=== PATIENT | male | born 1945 | race Asian ===

== ENCOUNTER 2019-09-24 18:03 | Emergency (ER) | payer BC ==
[~2019-09-24] VITALS: Ht 165.1 cm; Wt 70.8 kg
--- NOTE | 2019-09-24 18:12 | NUR ---
CAME IN FOR GENERALIZED WEAKNESS, LOST SENSE OF TASTE AND SMELL X 1 1/2 WEEK, TO ER BED 8, HOOKED TO MONITOR, CHANGED TO HOSP GOWN, WARM BLANKET PROVIDED, PATIENT AAO x 4, AWAITING MD DE DIOS.
[2019-09-24] MEDS ORDERED: Magnesium 1GM/D5W 100ML PREMIX 200 ML IV ONE ×2 (18:29→18:42)
[2019-09-24] MEDS ORDERED: predniSONE 20 MG TABLET PO ONE (18:30)
[2019-09-24] MEDS ORDERED: IPRATROPIUM NEB FS 0.5 MG/2.5 ML AMPUL.NEB NEB ONE (18:30)
[2019-09-24] MEDS ORDERED: ALBUTEROL FS 2.5 MG/3 ML VIAL.NEB NEB ONE (18:30)
[2019-09-24] MEDS ORDERED: predniSONE 20 MG TABLET ONE (18:44)
[2019-09-24 18:50] LABS: BASOPHILS % (AUTO) 0.4 % (0.0-2.0); EOSINOPHILS % (AUTO) 3.7 % (0.0-6.0); HEMATOCRIT 34 % (39-51); HEMOGLOBIN 11.6 g/dL (13.5-17.5); LYMPHOCYTES # (AUTO) 1.5 /CMM (0.8-4.8); LYMPHOCYTES % (AUTO) 26.9 % (20.0-44.0); MEAN CORPUSCULAR HGB CONC 34 g/dl (31.0-36.0); MEAN CORPUSCULAR VOLUME 97 fL (80-96); MONOCYTES # (AUTO) 0.6 /CMM (0.1-1.30); MONOCYTES % (AUTO) 10.2 % (2.0-12.0); NEUTROPHILS # (AUTO) 3.4 /CMM (1.8-8.9); NEUTROPHILS % (AUTO) 58.8 % (43.0-81.0); PLATELET COUNT (AUTO) 216 /CMM (150-450); RED BLOOD CELL COUNT(AUTO) 3.52 MIL/uL (4.5-6.0); WHITE BLOOD COUNT (AUTO) 5.8 K/uL (4.3-11.0)
[2019-09-24] MEDS ORDERED: IPRATROPIUM NEB FS 0.5 MG/2.5 ML AMPUL.NEB ONE (18:56)
[2019-09-24] MEDS ORDERED: ALBUTEROL FS 2.5 MG/3 ML VIAL.NEB ONE (18:56)
--- NOTE | 2019-09-24 18:59 | NUR ---
RT AT BEDSIDE FOR BREATHING TX
[2019-09-24 19:00] LABS: CALCIUM, SERUM 12.2 mg/dL (8.5-10.1); CARBON DIOXIDE 36 mmol/L (21-32); CHLORIDE 102 mmol/L (98-107); GLUCOSE 108 mg/dL (74-106); POTASSIUM 3.6 mmol/L (3.5-5.1); SODIUM SERUM 141 mmol/L (136-145); UREA NITROGEN, BLOOD 36 mg/dL (7-18)
[2019-09-24 19:09] LABS: ALANINE AMINOTRANSFERASE 16 U/L (12-78); ALKALINE PHOSPHATASE 63 U/L (46-116); ASPARTATE AMINOTRANSFERASE 16 U/L (15-37); BILIRUBIN,TOTAL 0.4 mg/dL (0.2-1.0); TOTAL PROTEIN, SERUM 7.5 g/dL (6.4-8.2)
--- NOTE | 2019-09-24 19:14 | NUR ---
REPORT GIVEN TO ANTHONY JONES FOR JEANNA
--- NOTE | 2019-09-24 20:02 | NUR ---
1 GM MAGNESIUM IV PER MD ORDER GIVEN.
[2019-09-24 20:03] VITALS: BP 108/61
--- NOTE | 2019-09-24 20:03 | NUR ---
Patient discharged to home in stable condition. Written and verbal after care instructions given. Patient verbalizes understanding of instruction.PT ambulatory with a steady gait IV removed. Catheter intact and site benign. Pressure and 4x4 applied to site. No bleeding noted.
== END 2019-09-24 20:05 | disposition home or self-care (01) ==
LOC: ER 18:09
DX: J44.1 Chronic obstructive pulmonary disease with (acute) exacerbation (principal); R53.83 Other fatigue; I10 Essential (primary) hypertension; E11.9 Type 2 diabetes mellitus without complications; I48.91 Unspecified atrial fibrillation; F17.200 Nicotine dependence, unspecified, uncomplicated
CPT/HCPCS: 36415; 71045; 80053; 85025; 93005; 94640; 96365; 99285; J3475; J7512

== ENCOUNTER 2020-02-06 13:25 | Inpatient (IN) | payer BC, OTHER ==
[~2020-02-06] VITALS: Ht 165.1 cm; Wt 66.7 kg
--- NOTE | 2020-02-06 13:36 | NUR ---
CATRACHOIENValentin C/O DIZZINESS X 3 MOS, TO ER BED 9, HOOKED TO MONITOR, CHANGED TO HOSP GOWN, WARM BLANKET PROVIDED, PATIENT AAO x 4. BREATHING EVEN AND UNLABORED. NAD NOTED. AWAITING MD DE DIOS
--- NOTE | 2020-02-06 13:40 | NUR ---
DR MALIN AT BEDSIDE
[2020-02-06 14:21] LABS: BASOPHILS % (AUTO) 0.4 % (0.0-2.0); EOSINOPHILS % (AUTO) 2.6 % (0.0-6.0); HEMATOCRIT 30 % (39-51); HEMOGLOBIN 10.1 g/dL (13.5-17.5); LYMPHOCYTES # (AUTO) 1.1 /CMM (0.8-4.8); MEAN CORPUSCULAR HGB CONC 34 g/dl (31.0-36.0); MEAN CORPUSCULAR VOLUME 93 fL (80-96); MONOCYTES # (AUTO) 0.4 /CMM (0.1-1.30); MONOCYTES % (AUTO) 8.7 % (2.0-12.0); NEUTROPHILS # (AUTO) 2.9 /CMM (1.8-8.9); NEUTROPHILS % (AUTO) 63.3 % (43.0-81.0); PLATELET COUNT (AUTO) 205 /CMM (150-450); RED BLOOD CELL COUNT(AUTO) 3.17 MIL/uL (4.5-6.0); WHITE BLOOD COUNT (AUTO) 4.5 K/uL (4.3-11.0)
--- NOTE | 2020-02-06 14:54 | NUR ---
DR DOUGHERTY AT BEDSIDE
[2020-02-06] MEDS ORDERED: IV NS 0.9% 1,000 ML IV ONE (15:00)
[2020-02-06 15:01] LABS: CALCIUM, SERUM 12.5 mg/dL (8.5-10.1); CARBON DIOXIDE 37 mmol/L (21-32); CHLORIDE 98 mmol/L (98-107); CREATININE 2.1 mg/dL (0.6-1.3); GLUCOSE 113 mg/dL (74-106); POTASSIUM 3.2 mmol/L (3.5-5.1); SODIUM SERUM 140 mmol/L (136-145); UREA NITROGEN, BLOOD 72 mg/dL (7-18)
[2020-02-06] MEDS ORDERED: POTASSIUM CL. PREMIX PERIPHER. 100 ML ONE (15:54)
[2020-02-06] MEDS: POTASSIUM CL. PREMIX PERIPHER. 50 ML IV SCH ×2 (16:04→17:09)
[2020-02-06] MEDS ORDERED: CHOL200010 PO (16:16)
[2020-02-06] MEDS ORDERED: DIGO125T PO (16:16)
[2020-02-06] MEDS ORDERED: DILT300C57 PO (16:16)
[2020-02-06] MEDS ORDERED: ALBU18HF2 IH (16:16)
[2020-02-06] MEDS ORDERED: METF-440 PO (16:16)
[2020-02-06] MEDS ORDERED: FURO40TA5 PO (16:16)
[2020-02-06] MEDS ORDERED: TAMS-12 PO (16:16)
[2020-02-06] MEDS ORDERED: WARF2.5T85 PO (16:16)
[2020-02-06] MEDS ORDERED: MULT-1168 PO (16:16)
[2020-02-06] MEDS ORDERED: OMEG-178 PO (16:16)
[2020-02-06] MEDS ORDERED: METO5TAB7 PO (16:16)
[2020-02-06] MEDS ORDERED: LOSA100T31 PO (16:16)
[2020-02-06] MEDS ORDERED: ATOR10TA PO (16:16)
[2020-02-06] MEDS ORDERED: TERA1CAP11 PO (16:16)
--- NOTE | 2020-02-06 16:47 | NUR ---
SPOKE TO JONNY LINN FROM [employer] [employer]. GIVEN CLINICAL INFORMATION REGARDING PATIENT. WILL LOOK FOR BED ASSIGNMENT FOR PATIENT AND SEE IF THEY HAVE ANY AVAILABILITY. IF NO AVAILABILITY, THEY WILL CALL BACK.
--- NOTE | 2020-02-06 16:56 | NUR ---
covid swab done sent to lab
--- NOTE | 2020-02-06 17:00 | NUR ---
CALLED NURSING SUP FOR TELE BED.
[2020-02-06] MEDS ORDERED: Z GUARD REMEDY 2 OZ OINT TP PRN (17:30)
[2020-02-06] MEDS ORDERED: HYDROCODONE/APAP 5/325MG TABLET PO PRN (17:30)
[2020-02-06] MEDS ORDERED: INSULIN REGULAR, HUMAN 100 UNIT/ML 3 ML VIAL SQ PRN (17:30)
[2020-02-06] MEDS ORDERED: MAG HYDROX/AL HYDROX/SIMETH 30 ML UDC PO PRN (17:30)
[2020-02-06] MEDS ORDERED: ONDANSETRON HCL/PF 4 MG/2 ML VIAL IVP PRN (17:30)
[2020-02-06] MEDS ORDERED: MAGNESIUM HYDROXIDE 30 ML UDC PO PRN (17:30)
[2020-02-06] MEDS ORDERED: DEXTROSE 50%-WATER 50 ML DISP.SYRIN IV PRN (17:30)
[2020-02-06] MEDS ORDERED: ACETAMINOPHEN 325 MG TABLET PO PRN (17:30)
--- NOTE | 2020-02-06 18:49 | NUR ---
received a call from the lab regarding covid result "negative".
--- NOTE | 2020-02-06 19:53 | NUR ---
REPORT GIVEN TO TYESHA JONES FOR JEANNA
--- NOTE | 2020-02-06 21:07 | NUR ---
BED ASSIGNMENT 323-2
--- NOTE | 2020-02-06 21:22 | NUR ---
REPORT GIVEN TO EUSEBIA JONES FOR JEANNA
--- NOTE | 2020-02-06 21:50 | NUR ---
OPTICAL EFFECTS LAYOUT PERSON ADMISSION NOTES RECEIVED PT FROM ER VIA HAKAN , AWAKE ALERT AND ORIENTED X4, RESPIRATIONS EVEN AND UNLABORED WITH EQUAL RISE AND FALL OF CHEST, DENIES ANY PAIN OR DISCOMFORT AT THIS TIME, IV SITE TO RIGHT AC #18 G INTACT AND PATENT, NO REDNESS NO INFILTRATION PRESENT, ON MAINTENANCE PIPEFITTER A. FIB WITH HR TRENDING IN THE 40-50'S. SKIN ASSESSED NOTED SCATTERED INTACT BOILS TO BUTTOCKS AREA, BELONGINGS LIST DONE, WOUND PIC TAKEN PLACED IN CHART , PERSONAL MEDICATION IN PHARMACY INQUIRE PT SIGNED, WILL TAKE TO PHARM IN AM, DISCUSSED PLAN OF CARE, ORIENTED TO STAFF AND CALL LIGHT AND KEPT WITHIN REACH ALL NEEDS ATTENDED AT THIS TIME, LOW BED AND LOCKED, SAFETY PRECAUTIONS RENDERED, REMAINS COMFORTABLE WILL CONTINUE TO MONITOR.
--- NOTE | 2020-02-06 21:51 | NUR ---
PT TRANSFERED PER ACLS PROTOCOL
[2020-02-06 21:55] VITALS: BP 110/64
[2020-02-06] MEDS: BLOOD SUGAR DIAGNOSTIC 1 EACH STRIP VI SCH ×2 (22:03→22:21)
[2020-02-06] MEDS: *INSULIN REGULAR(HUMULIN R)HUM 100 UNIT/ML VIAL SQ PRN (22:04)
[2020-02-06 22:16] VITALS: BP 110/64
[2020-02-06] MEDS: IV NS 0.9% 1,000 ML IV PRN (23:14)
[2020-02-07 00:01] VITALS: BP 93/60
--- NOTE | 2020-02-07 05:19 | NUR ---
wax pattern repairer notes noted bp ranging in the 85/69, carroll aguilar made aware, pt has 1 bm black color.small. new order to increase ivf ns to 100 ml/hr give 500 bolus ns, stats h &H will update md with results. bolus started as ordered.
[2020-02-07] MEDS ORDERED: IV NS 0.9% 500 ML IV ONE (05:30)
[2020-02-07] MEDS: BLOOD SUGAR DIAGNOSTIC 1 EACH STRIP VI SCH ×4 (05:52→22:25)
[2020-02-07] MEDS: INSULIN REGULAR, HUMAN 100 UNIT/ML 3 ML VIAL SQ PRN (05:52)
[2020-02-07 06:03] LABS: BASOPHILS % (AUTO) 0.7 % (0.0-2.0); EOSINOPHILS % (AUTO) 3.7 % (0.0-6.0); HEMATOCRIT 29 % (39-51); HEMOGLOBIN 10.1 g/dL (13.5-17.5); LYMPHOCYTES # (AUTO) 1.4 /CMM (0.8-4.8); LYMPHOCYTES % (AUTO) 30.9 % (20.0-44.0); MEAN CORPUSCULAR HGB CONC 34 g/dl (31.0-36.0); MEAN CORPUSCULAR VOLUME 92 fL (80-96); MONOCYTES # (AUTO) 0.5 /CMM (0.1-1.30); MONOCYTES % (AUTO) 11.5 % (2.0-12.0); NEUTROPHILS # (AUTO) 2.4 /CMM (1.8-8.9); NEUTROPHILS % (AUTO) 53.2 % (43.0-81.0); PLATELET COUNT (AUTO) 173 /CMM (150-450); RED BLOOD CELL COUNT(AUTO) 3.18 MIL/uL (4.5-6.0); WHITE BLOOD COUNT (AUTO) 4.4 K/uL (4.3-11.0)
[2020-02-07 06:04] VITALS: BP 85/69
[2020-02-07 06:18] LABS: DIGOXIN 2.18 ng/mL (0.90-2.00)
[2020-02-07 06:19] LABS: CALCIUM, SERUM 11.8 mg/dL (8.5-10.1); CARBON DIOXIDE 34 mmol/L (21-32); CHLORIDE 103 mmol/L (98-107); CREATININE 1.6 mg/dL (0.6-1.3); GLUCOSE 81 mg/dL (74-106); MAGNESIUM 1.7 mg/dL (1.8-2.4); PHOSPHORUS 1.9 mg/dL (2.5-4.9); POTASSIUM 2.9 mmol/L (3.5-5.1); SODIUM SERUM 142 mmol/L (136-145); UREA NITROGEN, BLOOD 52 mg/dL (7-18)
--- NOTE | 2020-02-07 07:01 | NUR ---
BAND HEAD SAW OPERATOR CLOSING NOTES PT AWAKE ALERT AND ORIENTED X4, RESPIRATIONS EVEN AND UNLABORED WITH EQUAL RISE AND FALL OF CHEST, DENIES ANY PAIN OR DISCOMFORT AT THIS TIME, IV SITE TO RIGHT AC #18 G INTACT AND PATENT, NO REDNESS NO INFILTRATION PRESENT, ON FUN HOUSE ATTENDANT A. FIB WITH HR TRENDING IN THE 40-50'S. PERSONAL MEDICATION IN PHARMACY INQUIRE PT SIGNED, WILL TAKE TO PHARM IN AM, DISCUSSED PLAN OF CARE, ORIENTED TO STAFF AND CALL LIGHT AND KEPT WITHIN REACH ALL NEEDS ATTENDED AT THIS TIME, LOW BED AND LOCKED, SAFETY PRECAUTIONS RENDERED, REMAINS COMFORTABLE WILL CONTINUE TO MONITOR NOTED INCREASE IN BP 103/64,67. ALSO REPORTED DIGOXIN LEVEL, MAG, PHOS AND POTASSIUM LEVELS THAT RESULTED, PATIENT REMAINS COMFORTABLE WILL ENDORSE TO NEXT SHIFT.
--- NOTE | 2020-02-07 07:30 | NUR ---
tele investment executive: cardio consult seen by dr. childs with new orders. orders acknowledged.
[2020-02-07] MEDS: NEUTRA PHOS 1 POWD.PACKET PO SCH ×2 (07:58→16:02)
[2020-02-07] MEDS: POTASSIUM CHLORIDE 20 MEQ TAB.PRT.SR PO SCH ×5 (07:59→11:52)
[2020-02-07 08:00] VITALS: BP 104/56
[2020-02-07] MEDS ORDERED: DIGOXIN IMMUNE FAB 40 MG in IV NS 0.9% 36 ML, IV TOTAL VOLUME 40 ML IV ONE ×3 (08:00)
[2020-02-07] MEDS: Magnesium 1GM/D5W 100ML PREMIX 100 ML IV SCH ×2 (08:25→09:59)
[2020-02-07] MEDS: ASPIRIN 81 MG TAB.CHEW PO SCH (08:31)
[2020-02-07] MEDS: ATORVASTATIN 10 MG TABLET PO SCH (08:33)
[2020-02-07] MEDS: TAMSULOSIN 0.4 MG CAP.SR.24H PO SCH (08:33)
[2020-02-07] MEDS: PANTOPRAZOLE 40 MG TABLET.DR PO SCH ×2 (08:33→16:02)
[2020-02-07] MEDS ORDERED: DILTIAZEM HCL CD 300 MG PO SCH (09:00)
[2020-02-07] MEDS ORDERED: DIGOXIN 0.125 MG TABLET PO SCH (09:00)
--- NOTE | 2020-02-07 10:30 | NUR ---
WOUND CARE CONSULT: PT PRESENTS WITH LEFT LOWER BUTTOCK CIRCULAR AREA WITH SMALL OPENING, PRESENT ON ADMISSION. RECOMMENDATIONS MADE FOR SKIN PROTECTION. DISCUSSED WITH NURSING STAFF. TO DECIDE REGARDING POSSIBLE SURGICAL CONSULT. DISCUSSED WITH SENIOR ADVISOR AND NURSING STAFF. MD IN AGREEMENT WITH PLAN OF CARE. CURRENT HECTOR SCORE IS 20. Addendum: 02/07/20 at 1032 by ZACKERY SERRATO WNDNU Amended: Links added.
[2020-02-07 12:00] VITALS: BP 104/47
--- NOTE | 2020-02-07 15:11 | NUR ---
tele facilities project manager: pulmo consult seen by dr. wharton with new orders. orders acknowledged. r.t. notified for abg order.
[2020-02-07 15:43] LABS: ABG BASE EXCESS 4.3 mmol/L; ABG OXYGEN SATURATION 93.2 % (92.0-98.5); ABG PCO2 42.9 mmHg (35.0-45.0); ABG PH 7.445 (7.350-7.450); ABG PO2 69.8 mmHg (75.0-100.0); AaDO2 28.6 mmHg; COHb 0.4 % (0.5-1.5); MetHb 0.3 % (0.0-1.5); O2Hb 92.5 % (94.0-97.0); SITE, ABG Left Radial
--- NOTE | 2020-02-07 15:45 | NUR ---
tele digitizer: notes abg resulted and dr. wharton aware with no new order. pt satting at 96% on room air. will continue to monitor.
[2020-02-07] MEDS: HEPARIN SODIUM, PORCINE 5000 UNITS/1 ML VIAL SQ SCH ×2 (16:03→22:57)
[2020-02-07] MEDS: IV NS 0.9% 1,000 ML IV PRN (16:03)
[2020-02-07 16:05] VITALS: BP 100/68
--- NOTE | 2020-02-07 18:00 | NUR ---
sawmill production worker opening notes Pt is sitting in bed comfortably watching TV. Pt is alert and orientedX3. Respiration is normal in room air. No SOB. No S/S of distress noted. Tele monitor showed afib HR at 74. IV site at RAC# 18 is clean, intact and infusing well NS @ 100ml/hr. Pt is able to ambulate with assist. Safety precautions is maintained. Bed at low position, brakes locked, side rails upX2, HOB elevated, urinal at the bedside and call light is within reach. Will continue to monitor.
--- NOTE | 2020-02-07 18:45 | NUR ---
plow holder notes Pt's having venous duppler ext with Jens from cardiology.
[2020-02-07 20:00] VITALS: BP 90/67
[2020-02-07] MEDS: *INSULIN REGULAR(HUMULIN R)HUM 100 UNIT/ML VIAL SQ PRN (22:31)
[2020-02-08] VITALS: BP 105/54
[2020-02-08 04:00] VITALS: BP 98/67
[2020-02-08] MEDS: BLOOD SUGAR DIAGNOSTIC 1 EACH STRIP VI SCH ×4 (06:58→21:41)
[2020-02-08] MEDS: INSULIN REGULAR, HUMAN 100 UNIT/ML 3 ML VIAL SQ PRN ×3 (06:59→17:53)
--- NOTE | 2020-02-08 07:49 | NUR ---
MIS DIRECTOR OPENING NOTES RECEIVED PT AWAKE IN BED IN NO ACUTE SIGNS OF DISTRESS. HOB ELEVATED. A/O X3. ABLE TO MAKE NEEDS KNOWN, DENIES PAIN OR ANY DISCOMFORTS AT THIS TIME. ON ROOM AIR, BREATHING EVEN AND UNLABORED. TELE-MONITOR SHOWS CURRENT READING OF SB AND A-FIB CONTROLLED WITH HR ON THE 40'S, NO C/O CARDIAC DISTRESS VOICED AT THIS TIME. IV ACCESS ON RAC G#18 INTACT AND PATENT WITH IVF OF NS RUNNING AT 100 ML/HR, NO S/S OF INFILTRATION AT SITE NOTED. SAFETY MEASURES IN PLACE: BED IN LOWEST LOCKED POSITION WITH BILATERAL SR UP X2. CALL LIGHT W/IN EASY REACH. WILL CONTINUE TO MONITOR PT ACCORDINGLY.
[2020-02-08 08:00] VITALS: BP 107/65
[2020-02-08 08:08] LABS: BASOPHILS % (AUTO) 0.7 % (0.0-2.0); EOSINOPHILS % (AUTO) 3.8 % (0.0-6.0); HEMATOCRIT 28 % (39-51); HEMOGLOBIN 9.6 g/dL (13.5-17.5); LYMPHOCYTES # (AUTO) 1.5 /CMM (0.8-4.8); LYMPHOCYTES % (AUTO) 37.2 % (20.0-44.0); MEAN CORPUSCULAR HGB CONC 34 g/dl (31.0-36.0); MEAN CORPUSCULAR VOLUME 94 fL (80-96); MONOCYTES # (AUTO) 0.4 /CMM (0.1-1.30); MONOCYTES % (AUTO) 10.5 % (2.0-12.0); NEUTROPHILS # (AUTO) 1.9 /CMM (1.8-8.9); NEUTROPHILS % (AUTO) 47.8 % (43.0-81.0); PLATELET COUNT (AUTO) 133 /CMM (150-450); RED BLOOD CELL COUNT(AUTO) 3.02 MIL/uL (4.5-6.0)
[2020-02-08] MEDS: HEPARIN SODIUM, PORCINE 5000 UNITS/1 ML VIAL SQ SCH ×2 (08:20→15:35)
--- NOTE | 2020-02-08 08:43 | NUR ---
salvage cutter closing notes Patient in bed resting comfortably. Patient breathing even and unlabored with no signs of SOB or acute respiratory distress. Safety measure is maintained, bed is in the lowest level, bed is locked, alarm is on, side rails x2 are up, and call light is within reach. Endorsed continuity of care to morning nurse.
[2020-02-08 08:56] LABS: ALBUMIN 2.3 g/dL (3.4-5.0); BILIRUBIN,TOTAL 0.4 mg/dL (0.2-1.0); CALCIUM, SERUM 11.2 mg/dL (8.5-10.1); CREATININE 1.3 mg/dL (0.6-1.3); MAGNESIUM 2.1 mg/dL (1.8-2.4); PHOSPHORUS 1.9 mg/dL (2.5-4.9); POTASSIUM 3.4 mmol/L (3.5-5.1); TOTAL PROTEIN, SERUM 6.6 g/dL (6.4-8.2)
[2020-02-08] MEDS: TAMSULOSIN 0.4 MG CAP.SR.24H PO SCH (09:00)
[2020-02-08] MEDS: ATORVASTATIN 10 MG TABLET PO SCH (09:00)
[2020-02-08] MEDS: ASPIRIN 81 MG TAB.CHEW PO SCH (09:00)
[2020-02-08] MEDS: PANTOPRAZOLE 40 MG TABLET.DR PO SCH ×2 (09:00→17:11)
--- NOTE | 2020-02-08 09:51 | NUR ---
WOUND CARE: PT SEEN FOR REASSESSMENT OF LEFT BUTTOCK. AREA APPEARS A DISCOLORATION/SCAR WITH NO DRAINAGE, NO ERYTHEMA OR TENDERNESS. WILL SEE PRN.
[2020-02-08 12:00] VITALS: BP 103/57
[2020-02-08] MEDS ORDERED: POTASSIUM CHLORIDE 20 MEQ TAB.PRT.SR PO ONE ×2 (12:00→12:29)
[2020-02-08] MEDS ORDERED: NEUTRA PHOS 1 POWD.PACKET PO ONE (14:00)
[2020-02-08 16:00] VITALS: BP 118/64
--- NOTE | 2020-02-08 18:46 | NUR ---
ACCREDITED FARM MANAGER NOTES PT AWAKE IN BED IN NO ACUTE SIGNS OF DISTRESS. HOB ELEVATED. A/O X4. ABLE TO MAKE NEEDS KNOWN. ON 2L OXYGEN NASAL CANNULA, TOLERATING WELL. BREATHING EVEN AND UNLABORED. TELE-MONITOR SHOWS CURRENT READING OF NSR WITH HR ON THE 80'S, NO C/O CARDIAC DISTRESS VOICED AT THIS TIME. IV ACCESS ON RAC G#20 INTACT, PATENT AND FLUSHES WELL. DISCOLORATION ON LEFT BUTTOCK, APPLIED OPTIFOAM, AND C/D/I. SAFETY MEASURES IN PLACE: BED IN LOWEST LOCKED POSITION WITH SR UP X2. CALL LIGHT WITHIN EASY REACH. WILL ENDORSE CARE OF PLAN TO NEXT ONCOMING NURSE. Addendum: 02/08/20 at 1849 by ENOC ROLLINS RN ACCREDITED FARM MANAGER CLOSING NOTES PT AWAKE IN BED IN NO ACUTE SIGNS OF DISTRESS. HOB ELEVATED. A/O X4. ABLE TO MAKE NEEDS KNOWN. ON 2L OXYGEN NASAL CANNULA, TOLERATING WELL. BREATHING EVEN AND UNLABORED. TELE-MONITOR SHOWS CURRENT READING OF NSR WITH HR ON THE 80'S, NO C/O CARDIAC DISTRESS VOICED AT THIS TIME. IV ACCESS ON RAC G#20 INTACT, PATENT AND FLUSHES WELL. DISCOLORATION ON LEFT BUTTOCK, APPLIED OPTIFOAM, AND C/D/I. SAFETY MEASURES IN PLACE: BED IN LOWEST LOCKED POSITION WITH SR UP X2. CALL LIGHT WITHIN EASY REACH. WILL ENDORSE CARE OF PLAN TO NEXT ONCOMING NURSE.
[2020-02-08 19:04] LABS: FERRITIN 318 ng/mL (8-388)
--- NOTE | 2020-02-08 19:05 | NUR ---
WEBMASTER OPENING NOTES RECEIVED PATIENT IN BED AWAKE ALERT AND ORIENTED X4, RESPIRATIONS EVEN AND UNLABORED WITH EQUAL RISE AND FALL OF CHEST, DENIES ANY PAIN OR DISCOMFORT AT THIS TIME, IV SITE TO RIGHT AC #18 G INTACT AND PATENT NO REDNESS, NO INFILTRATION PRESENT, IVF RUNNING ORDERED, ORIENTED TO STAFF AND CALL LIGHT AND KEPT WITHIN REACH, LOW BED AND LOCKED TOILETING OFFERED, BED ALARM IN PLACE, REMAINS COMFORTABLE WILL CONTINUE TO MONITOR ON TREE KILLER AFIB HR 59.
[2020-02-08 19:36] LABS: IRON, SERUM 61 ug/dl (50-175); TOTAL IRON BINDING CAPACITY 191 ug/dl (250-450)
[2020-02-08 20:00] VITALS: BP 106/64
[2020-02-08] MEDS: IV NS 0.9% 1,000 ML IV PRN (21:37)
[2020-02-09] VITALS (7 sets, daily range): BP systolic 116–136; BP diastolic 62–73
[2020-02-09] MEDS: HEPARIN SODIUM, PORCINE 5000 UNITS/1 ML VIAL SQ SCH ×4 (00:01→22:48)
[2020-02-09] MEDS: BLOOD SUGAR DIAGNOSTIC 1 EACH STRIP VI SCH ×4 (06:09→21:38)
[2020-02-09] MEDS: INSULIN REGULAR, HUMAN 100 UNIT/ML 3 ML VIAL SQ PRN (06:10)
--- NOTE | 2020-02-09 06:49 | NUR ---
TELEVISION NEWS PRODUCER CLOSING NOTES PATIENT IN BED SLEEPING EASILY AROUSABLE , ALERT AND ORIENTED X4, RESPIRATIONS EVEN AND UNLABORED WITH EQUAL RISE AND FALL OF CHEST, DENIES ANY PAIN OR DISCOMFORT AT THIS TIME, IV SITE TO RIGHT AC #18 G INTACT AND PATENT NO REDNESS, NO INFILTRATION PRESENT, IVF RUNNING ORDERED, ORIENTED TO STAFF AND CALL LIGHT AND KEPT WITHIN REACH, LOW BED AND LOCKED TOILETING OFFERED THROUGHOUT SHIFT, BED ALARM IN PLACE, REMAINS COMFORTABLE WILL CONTINUE TO MONITOR ON SPECIAL EVENTS DIRECTOR AFIB HR 45. NO DISTRESS WILL ENDORSE TO NEXT SHIFT.ALL NEEDS WERE MET.
--- NOTE | 2020-02-09 08:03 | NUR ---
MALTED MILK MASHER OPENING NOTE PATIENT IS IN BED RESTING COMFORTABLY. PATIENT IS IN NO ACUTE DISTRESS. PATIENTS BREATHING IS EVEN AND UNLABORED. DENIES PAIN AT THIS TIME. PATIENT IS ON DATAPOWER DEVELOPER READING SINUS ADRIEN 56. PATIENT BED ALARM IS ON. SAFETY PRECAUTION IN PLACE. HOB ELEVATED. PATIENTS BED IS LOCKED IN THE LOWEST POSITION. CALL LIGHT WITHIN REACH. WILL CONTINUE TO MONITOR. Addendum: 02/09/20 at 0808 by FRANCESCA SPANN RN MALTED MILK MASHER OPENING NOTE PATIENT IS IN BED RESTING COMFORTABLY. PATIENT IS IN NO ACUTE DISTRESS. PATIENTS BREATHING IS EVEN AND UNLABORED. PATIENT IS ON NC ON 3L OXYGEN. PATIENT IS ON DATAPOWER DEVELOPER READING AFIB 74. PATIENT BED ALARM IS ON. SAFETY PRECAUTION IN PLACE. HOB ELEVATED. PATIENTS BED IS LOCKED IN THE LOWEST POSITION. CALL LIGHT WITHIN REACH. WILL CONTINUE TO MONITOR. Addendum: 02/09/20 at 0815 by FRANCESCA SPANN RN MALTED MILK MASHER OPENING NOTE PATIENT IS IN BED RESTING COMFORTABLY. PATIENT IS IN NO ACUTE DISTRESS. PATIENT IS ON NC ON 2L OXYGEN. PATIENTS BREATHING IS EVEN AND UNLABORED. PATIENT IS ON DATAPOWER DEVELOPER READING AFIB 45. PATIENT BED ALARM IS ON. SAFETY PRECAUTION IN PLACE. HOB ELEVATED. PATIENTS BED IS LOCKED IN THE LOWEST POSITION. CALL LIGHT WITHIN REACH. WILL CONTINUE TO MONITOR.
[2020-02-09 08:19] LABS: BASOPHILS % (AUTO) 0.7 % (0.0-2.0); EOSINOPHILS % (AUTO) 2.9 % (0.0-6.0); HEMATOCRIT 27 % (39-51); HEMOGLOBIN 9.3 g/dL (13.5-17.5); LYMPHOCYTES # (AUTO) 1.7 /CMM (0.8-4.8); LYMPHOCYTES % (AUTO) 39.7 % (20.0-44.0); MEAN CORPUSCULAR HGB CONC 34 g/dl (31.0-36.0); MEAN CORPUSCULAR VOLUME 94 fL (80-96); MONOCYTES # (AUTO) 0.4 /CMM (0.1-1.30); MONOCYTES % (AUTO) 9.5 % (2.0-12.0); NEUTROPHILS % (AUTO) 47.2 % (43.0-81.0); PLATELET COUNT (AUTO) 148 /CMM (150-450); RED BLOOD CELL COUNT(AUTO) 2.92 MIL/uL (4.5-6.0); WHITE BLOOD COUNT (AUTO) 4.3 K/uL (4.3-11.0)
[2020-02-09] MEDS: ASPIRIN 81 MG TAB.CHEW PO SCH (08:55)
[2020-02-09] MEDS: TAMSULOSIN 0.4 MG CAP.SR.24H PO SCH (08:55)
[2020-02-09] MEDS: ATORVASTATIN 10 MG TABLET PO SCH (08:56)
[2020-02-09] MEDS: PANTOPRAZOLE 40 MG TABLET.DR PO SCH ×2 (08:56→16:17)
--- NOTE | 2020-02-09 10:30 | NUR ---
TOLL TEST DESK WORKER NOTES PT ABLE TO AMBULATE WITH STANDBY ASSISTANCE TO THE BATHROOM, PT WALKED ALONG THE HALLWAY, MONITORED HR AND O2 SAT, DURING THE BEGINNING OF THE ACTIVITY,PT'S O2 SAT IS 89% WITH HR OF 64, COMING BACK TO THE ROOM, PT'S O2 SAT IS 85%, NOT IN DISTRESS, WITH HR OF 50, NO COMPLAINT OF DIZZINESS, ASSISTED BACK TO BED, PLACED ON O2 AT 2LPM VIA NASAL CANULA, PT'S O2 SAT IMPROVED TO 93%.
[2020-02-09] MEDS ORDERED: PAMIDRONATE 90 MG in IV NS 0.9% 500 ML IV ONE (11:00)
[2020-02-09 11:03] LABS: CALCIUM, SERUM 10.8 mg/dL (8.5-10.1); CREATININE 1.2 mg/dL (0.6-1.3); POTASSIUM 3.6 mmol/L (3.5-5.1)
[2020-02-09 17:19] LABS: OCCULT BLOOD STOOL NEGATIVE (NEGATIVE)
--- NOTE | 2020-02-09 19:00 | NUR ---
KEY MAKER OPENING NOTES RECEIVED PATIENT IN BED AWAKE, ALERT AND ORIENTED X4, RESPIRATIONS EVEN AND UNLABORED WITH EQUAL RISE AND FALL OF CHEST, DENIES ANY PAIN OR DISCOMFORT AT THIS TIME, IV SITE TO RIGHT AC #18 G INTACT AND PATENT NO REDNESS, NO INFILTRATION PRESENT, IVF RUNNING ORDERED, ORIENTED TO STAFF AND CALL LIGHT AND KEPT WITHIN REACH, LOW BED AND LOCKED TOILETING OFFERED , BED ALARM IN PLACE, REMAINS COMFORTABLE WILL CONTINUE TO MONITOR ON ICE DELIVERY DRIVER AFIB HR 45. NO DISTRESS ALL NEEDS MET WILL CONTINUE TO MONITOR , SAFETY FALL PRECAUTIONS RENDERED.
--- NOTE | 2020-02-09 19:12 | NUR ---
HARDNESS TESTER CLOSING NOTE PATIENT IS IN BED RESTING COMFORTABLE. PATIENT IN NO ACUTE DISTRESS. PATIENTS BREATHING IS EVEN AND UNLABORED. PATIENT IS ON 2L NC. HOB ELEVATED. PATIENT IS ON PRESIDENT AND CEO AFIB 50. PATIENT KEPT CLEAN, DRY COMFORTABLE THROUGHOUT THE SHIFT. PATIENT NEEDS ADDRESSED. PATIENT BED ALARM IS ON. BED IS LOCKED AND IN THE LOWEST POSITION. SAFETY PRECAUTIONS IN PLACE. CALL LIGHT WITHIN REACH. ENDORSE TO THE FISHERY BIOLOGIST NURSE FOR JEANNA.
[2020-02-09] MEDS: *INSULIN REGULAR(HUMULIN R)HUM 100 UNIT/ML VIAL SQ PRN (21:38)
[2020-02-10] VITALS: BP_SYST 125; BP_SYST 129; BP_DIAS 55
[2020-02-10 04:00] VITALS: BP 125/74
[2020-02-10] MEDS: BLOOD SUGAR DIAGNOSTIC 1 EACH STRIP VI SCH ×4 (06:11→22:04)
[2020-02-10] MEDS: INSULIN REGULAR, HUMAN 100 UNIT/ML 3 ML VIAL SQ PRN (06:11)
--- NOTE | 2020-02-10 06:50 | NUR ---
LEATHER CURRIER CLOSING NOTES PATIENT IN BED AWAKE, ALERT AND ORIENTED X4, RESPIRATIONS EVEN AND UNLABORED WITH EQUAL RISE AND FALL OF CHEST, DENIES ANY PAIN OR DISCOMFORT AT THIS TIME, IV SITE TO RIGHT AC #18 G INTACT AND PATENT NO REDNESS, NO INFILTRATION PRESENT, IVF RUNNING ORDERED, D CALL LIGHT KEPT WITHIN REACH, LOW BED AND LOCKED TOILETING OFFERED , BED ALARM IN PLACE, REMAINS COMFORTABLE WILL CONTINUE TO MONITOR ON DISTRICT LEADER AFIB HR 50. NO DISTRESS ALL NEEDS MET WILL CONTINUE TO MONITOR , SAFETY FALL PRECAUTIONS RENDERED AND ENDORSE TO NEXT SHIFT.
--- NOTE | 2020-02-10 07:26 | NUR ---
APPLICATIONS MANAGER NOTES RECEIVED PATIENT IN BED SLEEPING, EASILY AWAKEN BY NAME AND LIGHT TOUCH. ALERT AND ORIENTED X4, RESPIRATIONS EVEN AND UNLABORED. PATIENT DENIES ANY PAIN OR DISCOMFORT AT THIS TIME, IV SITE TO RIGHT AC #18 G INTACT AND PATENT IVF RUNNING ORDERED. ON WATER HYDRANT INSTALLER, CONTROLLED A -FIB 50'S. SKIN WARM AND DRY TO TOUCH. SAFETY PRECAUTIONS IMPLEMENTED WITH BED LOCKED, BILATERAL SIDE RAILS UP, BED ALARM ON, BED IN THE LOWEST POSITION, AND CALL LIGHT WITHIN EASY REACH. WILL CONTINUE TO MONITOR.
[2020-02-10 08:00] VITALS: BP 126/84
[2020-02-10 08:06] LABS: IMMUNOGLOBULIN A, SERUM 408 mg/dL (61-437); IMMUNOGLOBULIN G, SERUM 1499 mg/dL (603-1613); IMMUNOGLOBULIN M, SERUM 38 mg/dL (15-143)
[2020-02-10] MEDS: HEPARIN SODIUM, PORCINE 5000 UNITS/1 ML VIAL SQ SCH (09:02)
[2020-02-10] MEDS: ATORVASTATIN 10 MG TABLET PO SCH (09:03)
[2020-02-10] MEDS: ASPIRIN 81 MG TAB.CHEW PO SCH (09:03)
[2020-02-10] MEDS: TAMSULOSIN 0.4 MG CAP.SR.24H PO SCH (09:03)
[2020-02-10] MEDS: PANTOPRAZOLE 40 MG TABLET.DR PO SCH ×2 (09:03→17:41)
[2020-02-10 09:52] LABS: CALCIUM, SERUM 10.3 mg/dL (8.5-10.1); CREATININE 1.2 mg/dL (0.6-1.3); POTASSIUM 3.7 mmol/L (3.5-5.1)
[2020-02-10 10:04] LABS: BASOPHILS % (AUTO) 0.6 % (0.0-2.0); EOSINOPHILS % (AUTO) 2.9 % (0.0-6.0); HEMATOCRIT 29 % (39-51); HEMOGLOBIN 9.7 g/dL (13.5-17.5); LYMPHOCYTES # (AUTO) 0.7 /CMM (0.8-4.8); LYMPHOCYTES % (AUTO) 18.1 % (20.0-44.0); MEAN CORPUSCULAR HGB CONC 33 g/dl (31.0-36.0); MEAN CORPUSCULAR VOLUME 97 fL (80-96); MONOCYTES # (AUTO) 0.3 /CMM (0.1-1.30); MONOCYTES % (AUTO) 7.1 % (2.0-12.0); NEUTROPHILS # (AUTO) 2.8 /CMM (1.8-8.9); NEUTROPHILS % (AUTO) 71.3 % (43.0-81.0); PLATELET COUNT (AUTO) 168 /CMM (150-450); RED BLOOD CELL COUNT(AUTO) 3.03 MIL/uL (4.5-6.0); WHITE BLOOD COUNT (AUTO) 3.9 K/uL (4.3-11.0)
[2020-02-10 12:00] VITALS: BP 118/63
[2020-02-10] MEDS ORDERED: IV NS 0.9% 250 ML IV ONE (12:19)
[2020-02-10] MEDS ORDERED: IOHEXOL-300 100 ML VIAL IV ONE (12:19)
[2020-02-10] MEDS: IV NS 0.9% 1,000 ML IV PRN (15:27)
[2020-02-10 16:11] LABS: *ANA ANTI-CENTROMERE B AB <0.2 AI (0.0-0.9); *ANA ANTI-DNA(DS) AB, QN <1 IU/mL (0-9); *ANA ANTI-JO-1 <0.2 AI (0.0-0.9); *ANA ANTICHROMATIN ANTIBODY <0.2 AI (0.0-0.9); *ANA RNP ANTIBODIES 0.2 AI (0.0-0.9); *ANA SJOGREN'S ANTI-SS-A <0.2 AI (0.0-0.9); *ANA SJOGREN'S ANTI-SS-B <0.2 AI (0.0-0.9); *ANAANTI-SCLERODERMA-70 AB <0.2 AI (0.0-0.9); *ANASMITH AB <0.2 AI (0.0-0.9); *SPE A/G RATIO 0.7 (0.7-1.7); *SPE ALBUMIN 2.7 g/dL (2.9-4.4); *SPE ALPHA-1-GLOBULIN 0.2 g/dL (0.0-0.4); *SPE ALPHA-2-GLOBULIN 0.9 g/dL (0.4-1.0); *SPE BETA GLOBULIN 1.1 g/dL (0.7-1.3); *SPE GLOBULIN, TOTAL 3.7 g/dL (2.2-3.9); *SPE M-SPIKE Not Observed g/dL (Not Observed); *SPEGAMMA GLOBULIN 1.5 g/dL (0.4-1.8)
--- NOTE | 2020-02-10 19:40 | NUR ---
PROSTHETIST NOTES PATIENT IN BED RESTING COMFORTABLY. ALERT AND ORIENTED X4, RESPIRATIONS EVEN AND UNLABORED. PATIENT DENIES ANY PAIN OR DISCOMFORT AT THIS TIME, IV SITE TO RIGHT AC #18 G INTACT AND PATENT IVF RUNNING ORDERED. ON COOK STATION, CONTROLLED A-FIB 50'S. SKIN KEPT CLEAN, WARM AND DRY TO TOUCH. MET ALL OF PATIENT'S NEEDS. SAFETY PRECAUTIONS IMPLEMENTED WITH BED LOCKED, BILATERAL SIDE RAILS UP, BED ALARM ON, BED IN THE LOWEST POSITION, AND CALL LIGHT WITHIN EASY REACH. WILL ENDORSE PLAN OF CARE TO UPCOMING RN.
[2020-02-10 20:00] VITALS: BP 127/73
--- NOTE | 2020-02-10 20:30 | NUR ---
RN NOTES RECEIVED PT. AWAKE ON BED, A-FIB ON TELE MONITOR HR HR-48, NOT IN DISTRESS, DENIES PAIN, , CALL LIGHT WITHIN REACH, [id number], CONTINUE TO MONITOR
[2020-02-11] VITALS (12 sets, daily range): BP systolic 105–126; BP diastolic 52–78
[2020-02-11] MEDS: IV D5/ 0.9% NACL 1,000 ML IV PRN ×2 (00:45→05:54)
[2020-02-11] MEDS: BLOOD SUGAR DIAGNOSTIC 1 EACH STRIP VI SCH ×4 (06:52→22:15)
--- NOTE | 2020-02-11 07:00 | NUR ---
RN NOTES AWAKE, NOT IN DISTRESS, DENIES PAIN, IV FLUID RUNNING D5NS @ 75 ML/HR, NOT IN DISTRESS, CALL LIGHT WITHIN REACH, SIDERAILSUPX2, PT. NEEDS ATTENDED
--- NOTE | 2020-02-11 07:40 | NUR ---
CARDIAC TECHNICIAN CLOSING NOTES PATIENT IN BED SLEEPING, AAO X4 ABLE TO MAKE NEEDS KNOWN. ON ROOM AIR, TOLERATING WELL. RESPIRATIONS EVEN AND UNLABORED WITH EQUAL RISE AND FALL OF CHEST. DENIES ANY PAIN OR DISCOMFORT AT THIS TIME, IV SITE TO RIGHT AC #18 G INTACT AND PATENT NO REDNESS, NO INFILTRATION PRESENT, IVF RUNNING ORDERED. ON PIPE ASSEMBLY WORKER AFIB HR 40'S. CALL LIGHT KEPT WITHIN REACH, LOW BED AND LOCKED, BED ALARM IN PLACE, SIDE RAILS UPX2. MAINTAINED NPO ORDERED FOR BRONCHOSCOPY. REMAINS COMFORTABLE WILL CONTINUE TO MONITOR FOR DISTRESS ALL NEEDS MET WILL CONTINUE TO MONITOR , SAFETY FALL PRECAUTIONS IN PLACE.
[2020-02-11] MEDS: TAMSULOSIN 0.4 MG CAP.SR.24H PO SCH (08:13)
[2020-02-11] MEDS: ASPIRIN 81 MG TAB.CHEW PO SCH (08:13)
[2020-02-11] MEDS: PANTOPRAZOLE 40 MG TABLET.DR PO SCH ×2 (08:14→17:07)
[2020-02-11] MEDS: ATORVASTATIN 10 MG TABLET PO SCH (08:14)
[2020-02-11] MEDS ORDERED: ANESTHESIA TRAY IN PYXIS 1 EA TRAY MC ONE (10:48)
[2020-02-11] MEDS ORDERED: LIDOCAINE 5% OINT 35.44 GM TUBE ONE (10:50)
[2020-02-11 10:53] LABS: CALCIUM, SERUM 9.7 mg/dL (8.5-10.1); CREATININE 1.1 mg/dL (0.6-1.3); POTASSIUM 3.6 mmol/L (3.5-5.1)
[2020-02-11 11:09] LABS: BASOPHILS % (AUTO) 0.6 % (0.0-2.0); EOSINOPHILS % (AUTO) 3.4 % (0.0-6.0); HEMATOCRIT 26 % (39-51); HEMOGLOBIN 8.7 g/dL (13.5-17.5); LYMPHOCYTES # (AUTO) 0.7 /CMM (0.8-4.8); LYMPHOCYTES % (AUTO) 25.2 % (20.0-44.0); MEAN CORPUSCULAR HGB CONC 34 g/dl (31.0-36.0); MEAN CORPUSCULAR VOLUME 95 fL (80-96); MONOCYTES # (AUTO) 0.3 /CMM (0.1-1.30); MONOCYTES % (AUTO) 10.5 % (2.0-12.0); NEUTROPHILS # (AUTO) 1.6 /CMM (1.8-8.9); NEUTROPHILS % (AUTO) 60.3 % (43.0-81.0); PLATELET COUNT (AUTO) 149 /CMM (150-450); RED BLOOD CELL COUNT(AUTO) 2.71 MIL/uL (4.5-6.0); WHITE BLOOD COUNT (AUTO) 2.7 K/uL (4.3-11.0)
--- NOTE | 2020-02-11 13:02 | NUR ---
DESIGN QUALITY ENGINEER NOTES PATIENT PICKED UP BY OR TRANSPORTATION FOR BRONCHOSCOPY. OXYGEN ON 3LPM NASAL CANULA ON, AND TOLERATING WELL.
--- NOTE | 2020-02-11 15:44 | NUR ---
RN NOTES PT RETURNED FROM SURGERY S/P BRONCHOSCOPY, WASHING AND BRUSHING OF RIGHT UPPER LOBE BY DR YUSUF. PT WAS ACCOMPANIED BY [facility]ERT WHEATLEY. V/S TAKEN: BP 126/78, P 72, R 16, T 98F AND SP02 99 ON 02 VIA N/C @ 2LPM. DR YUSUF WITH ORDER TO RESUME PRE-OP ORDERS. WILL CONTINUE TO MONITOR PT.
[2020-02-11] MEDS ORDERED: HYDROCODONE BIT/HOMATROPINE 5 ML UDC PO PRN (16:30)
--- NOTE | 2020-02-11 18:30 | NUR ---
DRIP PUMPER CLOSING NOTES PATIENT IN BED awake, AAO X4 ABLE TO MAKE NEEDS KNOWN. ON OYXGEN 2LPM NASAL CANULA, TOLERATING WELL. RESPIRATIONS EVEN AND UNLABORED WITH EQUAL RISE AND FALL OF CHEST. DENIES ANY PAIN OR DISCOMFORT AT THIS TIME, IV SITE TO RIGHT AC #18 G INTACT AND PATENT NO REDNESS, NO INFILTRATION PRESENT, IVF D5NS @ 75 ML/HR RUNNING ORDERED. ON INTERPRETER AND TRANSLATOR AFIB HR 40'S - 50'S. CALL LIGHT KEPT WITHIN REACH, LOW BED AND LOCKED, BED ALARM IN PLACE, SIDE RAILS UPX2. MAINTAINED CLEAR LIQUID DIET ORDERED FOR S/P BRONCHOSCOPY. REMAINS COMFORTABLE WILL CONTINUE TO MONITOR FOR DISTRESS ALL NEEDS MET WILL CONTINUE TO MONITOR , SAFETY FALL PRECAUTIONS IN PLACE.
--- NOTE | 2020-02-11 19:30 | NUR ---
TELE/RN OPENING NOTES RECEIVED PATIENT IN BED RESTING. PATIENT IS ALERT AND ORIENTED X 3.PATIENT TELE READING AFIB CONTROLLED. NO SIGNS OF SOB OR RESPIRATORY DISTRESS NOTED. BREATHING IS EVEN AND UNLABORED. PATIENT HAS RIGHT AC #18G INTACT RUNNING D5NS AT 75 ML/HR. SAFETY MEASURES ARE IN PLACE, BED IS LOCKED AND PLACED IN THE LOW POSITION, SIDE RAILS UP X 3, CALL LIGHT IS WITHIN REACH. WILL CONTINUE TO MONITOR THROUGH OUT SHIFT.
--- NOTE | 2020-02-12 05:45 | NUR ---
TELE/RN NOTES PATIENT RIGHT FA IV SITE LEAKING. ATTEMPTED TO START IN SITE AND PATIENT REFUSED. RISK AND BENEFITS HAVE BEEN EXPLAINED TO PATIENT OF IV ACCESS IMPORTANCE. PATIENT STATES HE WOULD LIKE TO SPEAK WITH THE DOCTOR IN THE MORNING FIRST. PATIENT IN NO DISTRESS.
--- NOTE | 2020-02-12 06:55 | NUR ---
TELE/RN CLOSING NOTES PATIENT IN BED RESTING. PATIENT IS ALERT AND ORIENTED X 3.PATIENT TELE READING AFIB CONTROLLED. NO SIGNS OF SOB OR RESPIRATORY DISTRESS NOTED. BREATHING IS EVEN AND UNLABORED. PATIENT HAS RIGHT AC #18G IN PLACE, LEAKING, NO SWELLING, NO WARMTH. ALL PATIENT NEEDS HAVE BEEN MET DURING SHIFT. SAFETY MEASURES ARE IN PLACE, BED IS LOCKED AND PLACED IN THE LOW POSITION, SIDE RAILS UP X 3, CALL LIGHT IS WITHIN REACH. WILL ENDORSE CARE TO DAY SHIFT NURSE.
[2020-02-12] MEDS: BLOOD SUGAR DIAGNOSTIC 1 EACH STRIP VI SCH ×3 (07:10→18:10)
--- NOTE | 2020-02-12 07:30 | NUR ---
iv hep lock out.restart rt. wrist with #22 angio.
[2020-02-12 07:47] LABS: BASOPHILS % (AUTO) 0.5 % (0.0-2.0); HEMATOCRIT 24 % (39-51); HEMOGLOBIN 8.3 g/dL (13.5-17.5); LYMPHOCYTES # (AUTO) 0.9 /CMM (0.8-4.8); LYMPHOCYTES % (AUTO) 25.8 % (20.0-44.0); MEAN CORPUSCULAR HGB CONC 34 g/dl (31.0-36.0); MEAN CORPUSCULAR VOLUME 94 fL (80-96); MONOCYTES # (AUTO) 0.5 /CMM (0.1-1.30); MONOCYTES % (AUTO) 14.8 % (2.0-12.0); NEUTROPHILS % (AUTO) 55.9 % (43.0-81.0); PLATELET COUNT (AUTO) 111 /CMM (150-450); RED BLOOD CELL COUNT(AUTO) 2.59 MIL/uL (4.5-6.0); WHITE BLOOD COUNT (AUTO) 3.5 K/uL (4.3-11.0)
[2020-02-12 08:00] VITALS: BP 105/67
[2020-02-12 08:25] LABS: ALBUMIN 1.9 g/dL (3.4-5.0); BILIRUBIN,DIRECT 0.1 mg/dL (0.0-0.2); BILIRUBIN,TOTAL 0.3 mg/dL (0.2-1.0); CALCIUM, SERUM 9.3 mg/dL (8.5-10.1); CREATININE 1.2 mg/dL (0.6-1.3); POTASSIUM 4.2 mmol/L (3.5-5.1); TOTAL PROTEIN, SERUM 5.5 g/dL (6.4-8.2)
[2020-02-12 09:41] LABS: EOSINOPHILS % (MANUAL) 4 % (0-4); LYMPHOCYTES % (MANUAL) 18 % (16-48); MONOCYTES % (MANUAL) 12 % (0-11.0); NEUTROPHILS % (MANUAL) 66 (42-76)
[2020-02-12] MEDS: ASPIRIN 81 MG TAB.CHEW PO SCH (09:48)
[2020-02-12] MEDS: ATORVASTATIN 10 MG TABLET PO SCH (09:48)
[2020-02-12] MEDS: TAMSULOSIN 0.4 MG CAP.SR.24H PO SCH (09:48)
[2020-02-12] MEDS: PANTOPRAZOLE 40 MG TABLET.DR PO SCH ×2 (09:49→17:26)
[2020-02-12 12:00] VITALS: BP 149/85
[2020-02-12 16:00] VITALS: BP 127/71
--- NOTE | 2020-02-12 18:16 | NUR ---
bout of uncontrolled a.fib.heart rate up to 125.rn in to rm. and pt. up to bathrm.with new vehicle sales consultant,assisted back to bed.
[2020-02-12 20:00] VITALS: BP 119/79
[2020-02-13] VITALS: BP 118/76
--- NOTE | 2020-02-13 01:10 | NUR ---
REPORTS GIVEN TO ROBERT ROBLES FOR CONTINUITY OF CARE.
--- NOTE | 2020-02-13 01:18 | NUR ---
TELERN RECEIVED REPORT FROM OUTGOING RN. REINA VOIDING FREELY. STANDBY ASSIST. DENIES ANY DISCOMFORTS. AFIB ON THE MONITOR AT RATE 50s. SAFETY PRECAUTIONS EMPHASIZED. REMINDED TO CALL STAFF FOR ANY ASISTANCE OR FURTHER DISCOMFORTS. ALL NEEDS ATTENDED.
[2020-02-13 04:00] VITALS: BP 119/69
--- NOTE | 2020-02-13 06:15 | NUR ---
TELRN BRP WITH STANDBY ASSIST. REMAINS BRADYCARDIC.AFIB CONTROLLED. DENIES ANY DISCOMFORTS ON INCREASE ACTIVITY.
[2020-02-13] MEDS: BLOOD SUGAR DIAGNOSTIC 1 EACH STRIP VI SCH ×4 (06:50→22:16)
[2020-02-13 08:00] VITALS: BP 145/81
--- NOTE | 2020-02-13 08:00 | NUR ---
RN Opening note Received patient in bed, AO x 3 able to responds all stimuli, Pt does no appears pain or distress. Skin is warm to touch keep clean/dry intact IV site, respiratory even and unlabored on room air O2sat 100%. Kept locked bed with elevated HOB for aspiration precaution and ensure airway and lowest bed foe safety. Call light within reach, will continue to monitor.
[2020-02-13] MEDS: ASPIRIN 81 MG TAB.CHEW PO SCH (08:39)
[2020-02-13] MEDS: TAMSULOSIN 0.4 MG CAP.SR.24H PO SCH (08:39)
[2020-02-13] MEDS: ATORVASTATIN 10 MG TABLET PO SCH (08:39)
[2020-02-13] MEDS: PANTOPRAZOLE 40 MG TABLET.DR PO SCH ×2 (08:39→17:17)
[2020-02-13 12:00] VITALS: BP 126/57
[2020-02-13 16:00] VITALS: BP 127/73
--- NOTE | 2020-02-13 18:37 | NUR ---
RN Closing note Patient in bed finished meal, does no appears pain or discomfort. Respiratory even and unlabored with ventilator machine and O2sat 100% on room air. Skin is warm to touch keep clean/dry, intact IV site. Kept locked bed with elevated HOB for ensure airway and aspiration precaution and lowest bed for safety. Call, light within reach will endorse retail cosmetics sales counter manager. Addendum: 02/13/20 at 1842 by KIMBERLY SPANN RN Error
--- NOTE | 2020-02-13 18:42 | NUR ---
RN Closing note Patient in bed finished meal, does no appears pain or discomfort. Respiratory even and unlabored on room air O2sat 100%. Skin is warm to touch keep clean/dry, intact IV site. Kept locked bed with elevated HOB for ensure airway and aspiration precaution and lowest bed for safety. Call light within reach will endorse night stocker.
--- NOTE | 2020-02-13 19:42 | NUR ---
RN OPENING NOTES PATIENT RECEIVED RESTING IN BED A/O X 3. ON 2L OF O2 WITH BREATHING EVEN AND UNLABORED,NO SOB NOTED. NO SIGNS OF ACUTE DISTRESS. NO COMPLAINTS OF PAIN OR DISCOMFORT. IV LOCATED ON R HAND PATENT AND INTACT. SAFETY PRECAUTIONS IN PLACE WITH BED IN LOWEST POSITION, CALL LIGHT WITHIN REACH, BREAKS ON, SIDE RAILS UP.
[2020-02-13 20:00] VITALS: BP 141/86
--- NOTE | 2020-02-13 21:00 | NUR ---
DISCUSSED WITH MD ROSS ABOUT PATIENT PROGRESS
[2020-02-14] VITALS: BP 131/91
[2020-02-14] MEDS: ALBUTEROL FS 2.5 MG/3 ML VIAL.NEB NEB PRN ×3 (02:27→21:58)
--- NOTE | 2020-02-14 02:27 | NUR ---
PATIENT FEELING SHORT OF BREATH. PATIENT O2 SAT 97% ON 1L OF O2. NOTIFIED RT FOR PRN BREATHING TREATMENT.
[2020-02-14 04:00] VITALS: BP 127/76
[2020-02-14 06:20] LABS: BASOPHILS % (AUTO) 0.5 % (0.0-2.0); HEMATOCRIT 24 % (39-51); HEMOGLOBIN 8.4 g/dL (13.5-17.5); LYMPHOCYTES # (AUTO) 1.1 /CMM (0.8-4.8); LYMPHOCYTES % (AUTO) 31.6 % (20.0-44.0); MEAN CORPUSCULAR HGB CONC 34 g/dl (31.0-36.0); MEAN CORPUSCULAR VOLUME 93 fL (80-96); MONOCYTES # (AUTO) 0.4 /CMM (0.1-1.30); MONOCYTES % (AUTO) 12.5 % (2.0-12.0); NEUTROPHILS # (AUTO) 1.8 /CMM (1.8-8.9); NEUTROPHILS % (AUTO) 52.4 % (43.0-81.0); PLATELET COUNT (AUTO) 156 /CMM (150-450); RED BLOOD CELL COUNT(AUTO) 2.63 MIL/uL (4.5-6.0); WHITE BLOOD COUNT (AUTO) 3.4 K/uL (4.3-11.0)
[2020-02-14 06:45] LABS: CALCIUM, SERUM 9.1 mg/dL (8.5-10.1); MAGNESIUM 1.8 mg/dL (1.8-2.4); PHOSPHORUS 1.6 mg/dL (2.5-4.9); POTASSIUM 3.7 mmol/L (3.5-5.1)
[2020-02-14] MEDS: BLOOD SUGAR DIAGNOSTIC 1 EACH STRIP VI SCH ×4 (07:27→22:22)
--- NOTE | 2020-02-14 07:48 | NUR ---
RN CLOSING NOTES PATIENT RESTING IN BED A/O X 3. ON 1L OF O2 WITH BREATHING EVEN AND UNLABORED,NO SOB NOTED. NO SIGNS OF ACUTE DISTRESS. NO COMPLAINTS OF PAIN OR DISCOMFORT. IV LOCATED ON R HAND PATENT AND INTACT. SAFETY PRECAUTIONS IN PLACE WITH BED IN LOWEST POSITION, CALL LIGHT WITHIN REACH, BREAKS ON, SIDE RAILS UP. ALL NEEDS ATTENDED TO THROUGHOUT THE NIGHT. WILL ENDORSE TO ONCOMING SHIFT ABOUT JEANNA.
--- NOTE | 2020-02-14 07:50 | NUR ---
RN OPENING NOTES PATIENT RESTING IN BED A/O X 3. ON 1L OF O2, TOLERATING WELL. BREATHING EVEN AND UNLABORED, NO SOB NOTED. NO SIGNS OF ACUTE DISTRESS. NO COMPLAINTS OF PAIN OR DISCOMFORT. ON SILK SCREEN OPERATOR, CONTROLLED AFIB AT 70'S-80'S. IV LOCATED ON R HAND PATENT AND INTACT. CONTINUING ON CLEAR LIQUID DIET. SAFETY PRECAUTIONS IN PLACE WITH BED IN LOWEST POSITION, CALL LIGHT WITHIN REACH, BREAKS ON, SIDE RAILS X2 UP.
[2020-02-14 08:00] VITALS: BP 131/74
[2020-02-14] MEDS: ASPIRIN 81 MG TAB.CHEW PO SCH (08:59)
[2020-02-14] MEDS: ATORVASTATIN 10 MG TABLET PO SCH (08:59)
[2020-02-14] MEDS: TAMSULOSIN 0.4 MG CAP.SR.24H PO SCH (08:59)
[2020-02-14] MEDS: PANTOPRAZOLE 40 MG TABLET.DR PO SCH ×2 (08:59→16:53)
[2020-02-14 16:00] VITALS: BP 128/76
[2020-02-14] MEDS ORDERED: K PHOS NEUTRAL 250 MG TABLET PO ONE (16:30)
--- NOTE | 2020-02-14 19:17 | NUR ---
RN CLOSING NOTES PATIENT AWAKE IN BED A/O X 3. ON 1L OF O2 VIA NASAL CANULA, TOLERATING WELL. BREATHING EVEN AND UNLABORED, NO SOB NOTED. NO SIGNS OF ACUTE DISTRESS. NO COMPLAINTS OF PAIN OR DISCOMFORT. ON ENVELOPE FOLDING MACHINE ADJUSTER, CONTROLLED AFIB AT 70'S-80'S. IV LOCATED ON R HAND PATENT AND INTACT. CONTINUING ON CLEAR LIQUID DIET. SAFETY PRECAUTIONS IN PLACE WITH BED IN LOWEST POSITION, CALL LIGHT WITHIN REACH, BREAKS ON, SIDE RAILS X2 UP. WILL ENDORSE PLAN OF CARE TO ONCOMING NURSE.
--- NOTE | 2020-02-14 19:50 | NUR ---
TELERN AWAKE, NO COMPLAINTS MADE. STABLE FOR NOW DENIES SOB OR DIZZINESS. NEEDS CLOSER MONITORING. SAFETY PRECAUTIONS EMPHASIZED REMINDED TO CALL FOR ANY ASSISTANCE OR DISCOMFORTS. CALL LIGHT WITHIN REACH.
[2020-02-14 20:15] VITALS: BP 120/68
--- NOTE | 2020-02-14 22:00 | NUR ---
TELERN BS 74. APPLE JUICE X2 AND JELLO OFFERED. ATE 100 %. NO OTHER NEEDS MADE.
[2020-02-15 00:15] VITALS: BP 112/65
--- NOTE | 2020-02-15 01:37 | NUR ---
TELERN BRP WITH ASSIST. STATES FEELS SLIGHTLY DIZZY, ON AND OFF. SAFETY PRECAUTIONS EMPHASIZED CALLS BEFORE GETTING OUT OF BED. REQUESTED APPLE JUICE AND JELLO, PROVIDED.
[2020-02-15 04:25] VITALS: BP 120/69
--- NOTE | 2020-02-15 06:23 | NUR ---
TELERN BS 106. ALL NEEDS ATTENDED. DENIES DISCOMFORTS. KEPT COMFORTABLE. REMINDED TO CALL STAFF EACH TIME HE GOES TO RESTROOM. HFR SEC DIZZINESS. HEART RATE AFIB ON THE 80 s and low 40s. NO NAUSEA OR VOMITTING. CLOSELY WATCHED.
[2020-02-15 07:21] LABS: BASOPHILS % (AUTO) 0.6 % (0.0-2.0); EOSINOPHILS % (AUTO) 2.7 % (0.0-6.0); HEMATOCRIT 23 % (39-51); HEMOGLOBIN 7.7 g/dL (13.5-17.5); LYMPHOCYTES # (AUTO) 1.1 /CMM (0.8-4.8); LYMPHOCYTES % (AUTO) 32.9 % (20.0-44.0); MEAN CORPUSCULAR HGB CONC 34 g/dl (31.0-36.0); MEAN CORPUSCULAR VOLUME 94 fL (80-96); MONOCYTES # (AUTO) 0.4 /CMM (0.1-1.30); MONOCYTES % (AUTO) 11.8 % (2.0-12.0); NEUTROPHILS # (AUTO) 1.8 /CMM (1.8-8.9); PLATELET COUNT (AUTO) 124 /CMM (150-450); RED BLOOD CELL COUNT(AUTO) 2.42 MIL/uL (4.5-6.0); WHITE BLOOD COUNT (AUTO) 3.5 K/uL (4.3-11.0)
[2020-02-15 07:42] LABS: ALBUMIN 1.9 g/dL (3.4-5.0); BILIRUBIN,TOTAL 0.3 mg/dL (0.2-1.0); PHOSPHORUS 2.2 mg/dL (2.5-4.9); POTASSIUM 3.9 mmol/L (3.5-5.1); TOTAL PROTEIN, SERUM 5.6 g/dL (6.4-8.2)
--- NOTE | 2020-02-15 07:48 | NUR ---
OCC THER OPENING NOTE PATIENT IS IN BED RESTING COMFORTABLY. PATIENT IS IN NO ACUTE DISTRESS. PATIENT IS ON OXYGEN NC ON 2L. PATIENT IS ON ELECTRICAL CONSTRUCTION PROJECT MANAGER READING AFIB 71. NO FACIAL GRIMACING OR SIGNS OF PAIN PRESENT. BED ALARM IS ON. CALL LIGHT WITHIN REACH. BED IS IN THE LOWEST POSITION WITH SIDES RAILS UP. WILL CONTINUE TO MONITOR.
[2020-02-15 08:00] VITALS: BP 136/78
[2020-02-15] MEDS: BLOOD SUGAR DIAGNOSTIC 1 EACH STRIP VI SCH ×4 (08:18→21:58)
[2020-02-15] MEDS: ASPIRIN 81 MG TAB.CHEW PO SCH (08:46)
[2020-02-15] MEDS: PANTOPRAZOLE 40 MG TABLET.DR PO SCH ×2 (08:46→17:03)
[2020-02-15] MEDS: ATORVASTATIN 10 MG TABLET PO SCH (08:46)
[2020-02-15] MEDS: TAMSULOSIN 0.4 MG CAP.SR.24H PO SCH (08:46)
[2020-02-15 16:00] VITALS: BP 132/91
--- NOTE | 2020-02-15 18:49 | NUR ---
SLOT OPERATIONS DIRECTOR CLOSING NOTES PATIENT IS IN BED RESTING COMFORTABLY. PATIENT IS ON OXYGEN NC ON 2L. PATIENT HAS ANXIETY EPISODES, STATING IT IS HARD TO BREATHE. O2 WAS INCREASED TO 4L AND BEING TITRATED. PATIENT IS ON GAS GENERATOR OPERATOR READING AFIB TACHY 106, CAN GO UP TO 110. PATIENT KEPT CLEAN DRY, AND COMFORTABLE THROUGHOUT THE SHIFT. NO FACIAL GRIMACING OR SIGNS OF PAIN PRESENT. BED ALARM IS ON. CALL LIGHT WITHIN REACH. BED IS IN THE LOWEST POSITION WITH SIDES RAILS UP. ENDORSE TO FOUNDER & CEO NURSE FOR JEANNA.
--- NOTE | 2020-02-15 19:05 | NUR ---
varnish maker opening notes received patient in bed awake alert and oriented x4, on 2l via nc tolerating well sp02 at 100%. respirations even and unlabored with equal rise and fall of chest, denies any pain or discomfort at this time, noted iv site infiltrated and removed, small wound noted to site, site cleansed and covered. mew iv site to right hand #22 sl.on referral clerk a.fib 105. safety precautions rendered low bed and locked, bed alarm in place oriented to staff and call light and kept within reach, toileting needs rendered, will continue to monitor remains comfortable.
[2020-02-15] MEDS: ALBUTEROL FS 2.5 MG/3 ML VIAL.NEB NEB PRN (20:14)
[2020-02-15] MEDS: *INSULIN REGULAR(HUMULIN R)HUM 100 UNIT/ML VIAL SQ PRN (21:59)
[2020-02-15 22:00] VITALS: BP 147/79
[2020-02-16] VITALS: BP 147/89
[2020-02-16 04:00] VITALS: BP 128/89
[2020-02-16] MEDS: ALBUTEROL FS 2.5 MG/3 ML VIAL.NEB NEB PRN ×3 (05:27→22:37)
[2020-02-16] MEDS: BLOOD SUGAR DIAGNOSTIC 1 EACH STRIP VI SCH ×4 (06:01→22:13)
[2020-02-16] MEDS: INSULIN REGULAR, HUMAN 100 UNIT/ML 3 ML VIAL SQ PRN (06:01)
--- NOTE | 2020-02-16 06:37 | NUR ---
appeals rn closing notes patient in bed awake alert and oriented x4, on 2l via nc tolerating well sp02 at 100%. respirations even and unlabored with equal rise and fall of chest, denies any pain or discomfort at this time, iv site to right hand #22 sl.on food service a.fib 72. safety precautions rendered low bed and locked, bed alarm in place ,call light kept within reach, toileting needs rendered, will continue to monitor remains comfortable and will endorse to next shift, bsc offered. breathing treatments done as requested.
--- NOTE | 2020-02-16 07:40 | NUR ---
BACKUP ENGINEER OPENING NOTE PATIENT IS IN BED RESTING COMFORTABLY. PATIENT IS IN NO ACUTE DISTRESS. PATIENT IS ON OXYGEN NC ON 2L TITRATING TO 3L. PATIENT IS ON NOVELTIES SALES REPRESENTATIVE READING UNCONTROLLED AFIB 115. NO FACIAL GRIMACING OR SIGNS OF PAIN PRESENT. BED ALARM IS ON. CALL LIGHT WITHIN REACH. BED IS IN THE LOWEST POSITION WITH SIDES RAILS UP. WILL CONTINUE TO MONITOR.
[2020-02-16 08:00] VITALS: BP 129/84
[2020-02-16 08:03] LABS: BASOPHILS % (AUTO) 0.5 % (0.0-2.0); EOSINOPHILS % (AUTO) 2.7 % (0.0-6.0); HEMATOCRIT 26 % (39-51); HEMOGLOBIN 8.6 g/dL (13.5-17.5); LYMPHOCYTES # (AUTO) 1.1 /CMM (0.8-4.8); LYMPHOCYTES % (AUTO) 28.8 % (20.0-44.0); MEAN CORPUSCULAR HGB CONC 33 g/dl (31.0-36.0); MEAN CORPUSCULAR VOLUME 95 fL (80-96); MONOCYTES # (AUTO) 0.4 /CMM (0.1-1.30); MONOCYTES % (AUTO) 11.2 % (2.0-12.0); NEUTROPHILS # (AUTO) 2.1 /CMM (1.8-8.9); NEUTROPHILS % (AUTO) 56.8 % (43.0-81.0); PLATELET COUNT (AUTO) 194 /CMM (150-450); RED BLOOD CELL COUNT(AUTO) 2.72 MIL/uL (4.5-6.0); WHITE BLOOD COUNT (AUTO) 3.7 K/uL (4.3-11.0)
--- NOTE | 2020-02-16 08:38 | NUR ---
WOUND CARE CONSULT: PT SEEN FOR RT WRIST AREA OF OPEN SKIN WITH SOME ERYTHEMA AROUND IT. RECOMMENDATIONS MADE FOR WOUND CARE. DISCUSSED WITH NURSING STAFF. WILL SEE PRN.
[2020-02-16 08:41] LABS: MAGNESIUM 1.8 mg/dL (1.8-2.4); PHOSPHORUS 2.5 mg/dL (2.5-4.9); POTASSIUM 4.5 mmol/L (3.5-5.1)
[2020-02-16] MEDS: ASPIRIN 81 MG TAB.CHEW PO SCH (09:00)
[2020-02-16] MEDS: PANTOPRAZOLE 40 MG TABLET.DR PO SCH ×2 (09:53→18:19)
[2020-02-16] MEDS: TAMSULOSIN 0.4 MG CAP.SR.24H PO SCH (09:54)
[2020-02-16] MEDS: ATORVASTATIN 10 MG TABLET PO SCH (09:54)
--- NOTE | 2020-02-16 10:10 | NUR ---
npo for food since 844,for sip of water with meds 1010.to have pacemaker today.
[2020-02-16] MEDS: NEOMY SULF/BACITRAC ZN/POLY 15 GM TUBE TP SCH ×2 (11:24→18:19)
[2020-02-16] MEDS ORDERED: ANESTHESIA TRAY IN PYXIS 1 EA TRAY MC ONE (12:58)
[2020-02-16] MEDS ORDERED: LIDOCAINE HCL/MPF 1% 30 ML VIAL IJ ONE (15:13)
[2020-02-16 16:00] VITALS: BP 115/70
--- NOTE | 2020-02-16 17:15 | NUR ---
returned to rm. from surg.vs stable,lt. chest dressing dry and intact.sling to lt. arm.hob elevated.
[2020-02-16] MEDS ORDERED: HYDROCODONE/APAP 5/325MG TABLET PO PRN (17:30)
--- NOTE | 2020-02-16 18:00 | NUR ---
no void since return to .
--- NOTE | 2020-02-16 19:40 | NUR ---
RN NOTES RECEIVED PT. AWAKE ON BED, S/P PACEMAKER INCISION , DRESSING DRY AND INTACT, WITH LEFT SHOULDER SLING IN PLACE, DENIES PAIN, NO SOB, BED IN LOW POSITION, CALL LIGHT WITHIN REACH,[id number], CONTINUE TO MONITOR
[2020-02-17 04:00] VITALS: BP 145/88
[2020-02-17] MEDS: BLOOD SUGAR DIAGNOSTIC 1 EACH STRIP VI SCH ×4 (06:42→22:13)
--- NOTE | 2020-02-17 06:42 | NUR ---
RN NOTES AWAKE, MORNING CARE RENDERED, INCISION SITE DRESSING DRY AND INTAKE, DENIES PAIN ,NO SOB, CALL LIGHT WITHIN REACH, SIDERAILSUPX2, PT. NEEDS ATTENDED
[2020-02-17] MEDS: ALBUTEROL FS 2.5 MG/3 ML VIAL.NEB NEB PRN (07:56)
[2020-02-17 08:00] VITALS: BP 114/69
[2020-02-17] MEDS: NEOMY SULF/BACITRAC ZN/POLY 15 GM TUBE TP SCH ×2 (08:05→17:00)
[2020-02-17] MEDS: ASPIRIN 81 MG TAB.CHEW PO SCH (08:54)
[2020-02-17] MEDS: PANTOPRAZOLE 40 MG TABLET.DR PO SCH ×2 (08:54→17:06)
[2020-02-17] MEDS: TAMSULOSIN 0.4 MG CAP.SR.24H PO SCH (08:54)
[2020-02-17] MEDS: ATORVASTATIN 10 MG TABLET PO SCH (08:54)
[2020-02-17] MEDS: DILTIAZEM HCL CD 240 MG PO SCH (08:59)
--- NOTE | 2020-02-17 09:00 | NUR ---
POLYGRAPH OPERATOR NOTES PATIENT COMPLAINING OF SOB AND DIFFICULTY BREATHING. O2 AT 8 LPM VIA MASK GIVEN. RT CALLED; O2 AT 88% WITH IMPROVED O2 AT 99-100%. PER DR. YUSUF STAT ABG.
[2020-02-17 09:12] LABS: BASOPHILS % (AUTO) 0.5 % (0.0-2.0); EOSINOPHILS % (AUTO) 2.4 % (0.0-6.0); HEMATOCRIT 27 % (39-51); HEMOGLOBIN 8.9 g/dL (13.5-17.5); LYMPHOCYTES # (AUTO) 1.2 /CMM (0.8-4.8); LYMPHOCYTES % (AUTO) 31.1 % (20.0-44.0); MEAN CORPUSCULAR HGB CONC 34 g/dl (31.0-36.0); MEAN CORPUSCULAR VOLUME 94 fL (80-96); MONOCYTES # (AUTO) 0.4 /CMM (0.1-1.30); MONOCYTES % (AUTO) 11.1 % (2.0-12.0); NEUTROPHILS # (AUTO) 2.2 /CMM (1.8-8.9); NEUTROPHILS % (AUTO) 54.9 % (43.0-81.0); PLATELET COUNT (AUTO) 195 /CMM (150-450); RED BLOOD CELL COUNT(AUTO) 2.83 MIL/uL (4.5-6.0)
[2020-02-17 09:13] LABS: CALCIUM, SERUM 9.1 mg/dL (8.5-10.1); POTASSIUM 4.9 mmol/L (3.5-5.1)
[2020-02-17] MEDS ORDERED: DILTIAZEM HCL 25 MG IV IV ONE (10:30)
[2020-02-17 12:02] LABS: ABG BASE EXCESS 7.5 mmol/L; ABG OXYGEN SATURATION 98.6 % (92.0-98.5); ABG PCO2 59.6 mmHg (35.0-45.0); ABG PH 7.376 (7.350-7.450); ABG PO2 143.5 mmHg (75.0-100.0); COHb 0.3 % (0.5-1.5); MetHb 0.2 % (0.0-1.5); O2Hb 98.1 % (94.0-97.0); SITE, ABG Left Radial
[2020-02-17] MEDS: LEVOFLOXACIN 500 MG /D5W 100ML 500 MG in PREMIX 1 EA IV SCH (12:13)
[2020-02-17] MEDS: ALBUTEROL HALF STRENGTH 1.25 MG/3 ML VIAL.NEB NEB SCH ×2 (16:16→19:32)
[2020-02-17] MEDS: IPRATROPIUM NEB FS 0.5 MG/2.5 ML AMPUL.NEB NEB SCH ×2 (16:17→19:32)
[2020-02-17] MEDS: methylPREDNISolone SOD SUCC 125 MG/2ML VIAL IV SCH ×2 (17:06→21:35)
[2020-02-17] MEDS: PIPERACILLIN /TAZOBACTAM 3.375 G in IV D5W 50 ML IV SCH (18:26)
--- NOTE | 2020-02-17 19:14 | NUR ---
SLUDGE MILL OPERATOR OPENING NOTES RECEIVED PATIENT IN BED, ASLEEP. PATIENT ON 2 LPM VIA NASAL CANULA; BREATHING EVEN AND UNLABORED. NO S/S OF PAIN. TEL MONITOR WITH A CURRENT READING OF UNCONTROLLED A-FIB 116-120. R HAND IV ACCESS G # 22 PRESENT AND INTACT. SAFETY PRECAUTIONS IN PLACE; BED IN LOW POSITION AND LOCKED, RAILS UP X2, CALL LIGHT WITHIN REACH. WILL CONTINUE TO MONITOR PATIENT.
--- NOTE | 2020-02-17 19:18 | NUR ---
NEW ACCOUNTS REPRESENTATIVE CLOSING NOTES PATIENT REMAINS IN BED, AWAKE. PATIENT ON 4 LPM VIA NASAL CANULA; BREATHING EVEN AND UNLABORED. NO PAIN DURING SHIFT. TELE MONITOR WITH A CURRENT READING OF ST 113 WITH PAC AND OCCASIONAL V PACING. R HAND IV ACCESS G # 22 PRESENT AND INTACT. ALL NEEDS ATTENDED TO THROUGHOUT THE DAY. SAFETY PRECAUTIONS IN PLACE; BED IN LOW POSITION AND LOCKED, RAILS UP X2, CALL LIGHT WITHIN REACH. WILL ENDORSE TO PAPER [place] DRYING MACHINE OPERATOR NURSE.
--- NOTE | 2020-02-17 19:18 | NUR ---
INDUSTRIAL CONTROLLER NOTES ABG DONE. PER DR YUSUF PATIENT TO BE ON O2 AT 4LPM VIA NASAL CANNULA. PATIENT SATURATING FINE AT 99%
[2020-02-17] MEDS: *INSULIN REGULAR(HUMULIN R)HUM 100 UNIT/ML VIAL SQ PRN (22:15)
[2020-02-18] MEDS: PIPERACILLIN /TAZOBACTAM 3.375 G in IV D5W 50 ML IV SCH ×5 (00:35→23:30)
[2020-02-18] MEDS: IPRATROPIUM NEB FS 0.5 MG/2.5 ML AMPUL.NEB NEB SCH ×4 (00:54→19:55)
[2020-02-18] MEDS: ALBUTEROL HALF STRENGTH 1.25 MG/3 ML VIAL.NEB NEB SCH ×4 (00:54→19:55)
--- NOTE | 2020-02-18 00:56 | NUR ---
TELE/RN DURING INITIAL SHIFT ROUNDING AT 1930, PATIENT WAS IN BED AWAKE, ALERT, ORIENTED, COMFORTABLE, NO C/O PAIN, NO DISTRESS NOTED, CALL LIGHT IN REACH, FALL PRECAUTIONS PER PER PROTOCOL. PRESENTLY, PATIENT IS STILL AWAKE, NO CHANGE IN CONDITION, WILL MONITOR.
[2020-02-18] MEDS: methylPREDNISolone SOD SUCC 125 MG/2ML VIAL IV SCH ×3 (05:26→22:04)
[2020-02-18] MEDS: INSULIN REGULAR, HUMAN 100 UNIT/ML 3 ML VIAL SQ PRN (06:43)
[2020-02-18 06:52] LABS: HEMATOCRIT 27 % (39-51); HEMOGLOBIN 9.3 g/dL (13.5-17.5); LYMPHOCYTES # (AUTO) 0.4 /CMM (0.8-4.8); LYMPHOCYTES % (AUTO) 19.1 % (20.0-44.0); MEAN CORPUSCULAR HGB CONC 34 g/dl (31.0-36.0); MEAN CORPUSCULAR VOLUME 93 fL (80-96); MONOCYTES % (AUTO) 1.7 % (2.0-12.0); NEUTROPHILS # (AUTO) 1.8 /CMM (1.8-8.9); NEUTROPHILS % (AUTO) 79.2 % (43.0-81.0); PLATELET COUNT (AUTO) 198 /CMM (150-450); RED BLOOD CELL COUNT(AUTO) 2.93 MIL/uL (4.5-6.0); WHITE BLOOD COUNT (AUTO) 2.3 K/uL (4.3-11.0)
[2020-02-18 07:11] LABS: CARBON DIOXIDE 33 mmol/L (21-32); CHLORIDE 104 mmol/L (98-107); CREATININE 1.1 mg/dL (0.6-1.3); GLUCOSE 142 mg/dL (74-106); MAGNESIUM 2.1 mg/dL (1.8-2.4); SODIUM SERUM 140 mmol/L (136-145); UREA NITROGEN, BLOOD 7 mg/dL (7-18)
--- NOTE | 2020-02-18 07:30 | NUR ---
PT RECEIVED RESTING COMFORTABLY IN BED WITH EYES CLOSED. NO S/S OR C/O PAIN OR DISTRESS NOTED. SIDE RAILS UP X2, CALL LIGHT LEFT WITHIN REACH. WILL CONTINUE PLAN OF CARE.
[2020-02-18] MEDS: BLOOD SUGAR DIAGNOSTIC 1 EACH STRIP VI SCH ×4 (07:43→22:04)
[2020-02-18 08:00] VITALS: BP 95/60
[2020-02-18] MEDS: DILTIAZEM HCL CD 240 MG PO SCH (09:00)
[2020-02-18] MEDS: ATORVASTATIN 10 MG TABLET PO SCH (09:39)
[2020-02-18] MEDS: PANTOPRAZOLE 40 MG TABLET.DR PO SCH ×2 (09:39→17:38)
[2020-02-18] MEDS: ASPIRIN 81 MG TAB.CHEW PO SCH (09:39)
[2020-02-18] MEDS: TAMSULOSIN 0.4 MG CAP.SR.24H PO SCH (09:39)
[2020-02-18] MEDS: NEOMY SULF/BACITRAC ZN/POLY 15 GM TUBE TP SCH ×2 (09:43→17:50)
[2020-02-18] MEDS: LEVOFLOXACIN 500 MG /D5W 100ML 500 MG in PREMIX 1 EA IV SCH (10:02)
[2020-02-18 12:00] VITALS: BP 100/58
[2020-02-18] MEDS: *INSULIN REGULAR(HUMULIN R)HUM 100 UNIT/ML VIAL SQ PRN (12:52)
[2020-02-18 16:00] VITALS: BP 109/82
[2020-02-18 20:00] VITALS: BP 100/64
--- NOTE | 2020-02-18 21:12 | NUR ---
CHANGE OF SHIFT REPORT PT RESTING COMFORTABLY IN BED. NO S/S OR C/O PAIN OR DISTRESS NOTED. SIDE RAILS UP X2, CALL LIGHT LEFT WITHIN REACH. PT KEPT CLEAN, DRY, AND COMFORTABLE. NO SIGNIFICANT CHANGES SINCE PREVIOUS SHIFT. REPORT GIVEN TO GOLDY JONES.
[2020-02-19] VITALS: BP_SYST 120; BP_DIAS 84; BP_DIAS 87
[2020-02-19] MEDS: IPRATROPIUM NEB FS 0.5 MG/2.5 ML AMPUL.NEB NEB SCH ×4 (01:41→20:41)
[2020-02-19] MEDS: ALBUTEROL HALF STRENGTH 1.25 MG/3 ML VIAL.NEB NEB SCH ×4 (01:41→20:41)
[2020-02-19 04:00] VITALS: BP 118/74
[2020-02-19] MEDS: PIPERACILLIN /TAZOBACTAM 3.375 G in IV D5W 50 ML IV SCH ×3 (05:00→17:46)
[2020-02-19] MEDS: methylPREDNISolone SOD SUCC 125 MG/2ML VIAL IV SCH ×3 (05:00→21:26)
[2020-02-19] MEDS: INSULIN REGULAR, HUMAN 100 UNIT/ML 3 ML VIAL SQ PRN ×2 (06:08→11:44)
[2020-02-19] MEDS: BLOOD SUGAR DIAGNOSTIC 1 EACH STRIP VI SCH ×4 (06:34→21:36)
[2020-02-19 06:58] LABS: HEMATOCRIT 23 % (39-51); HEMOGLOBIN 7.9 g/dL (13.5-17.5); LYMPHOCYTES # (AUTO) 0.4 /CMM (0.8-4.8); MEAN CORPUSCULAR HGB CONC 34 g/dl (31.0-36.0); MEAN CORPUSCULAR VOLUME 93 fL (80-96); MONOCYTES # (AUTO) 0.2 /CMM (0.1-1.30); MONOCYTES % (AUTO) 3.6 % (2.0-12.0); NEUTROPHILS # (AUTO) 4.3 /CMM (1.8-8.9); NEUTROPHILS % (AUTO) 88.4 % (43.0-81.0); PLATELET COUNT (AUTO) 197 /CMM (150-450); RED BLOOD CELL COUNT(AUTO) 2.51 MIL/uL (4.5-6.0); WHITE BLOOD COUNT (AUTO) 4.9 K/uL (4.3-11.0)
--- NOTE | 2020-02-19 07:00 | NUR ---
RN CLOSING NOTES Pt asleep on bed. On tele monitor with controlled A-fib, with episodes of V-pacing noted. No complaints of pain/discomfort noted. All nursing needs attended, due meds given as ordered. Kept on bed clean, dry and comfortable. Endorsed.
[2020-02-19 08:00] VITALS: BP 109/73
--- NOTE | 2020-02-19 08:20 | NUR ---
RESEARCH NEUROPSYCHOLOGIST OPENING NOTES RECEIVED PATIENT IN BED, AWAKE, A/O X4. PATIENT ON OXYGEN THERAPY AT 4 LPM VIA NASAL CANULA. NO COMPLAINS OF PAIN AT THIS TIME. R WRIST IV ACCESS G# 22 PRESENT AND INTACT. SAFETY PRECAUTIONS IN PLACE; BED IN LOW POSITION AND LOCKED, RAILS UP X2, CALL LIGHT WITHIN REACH. WILL ENDORSE TO SHEETER MACHINE OPERATOR NURSER.
[2020-02-19] MEDS: NEOMY SULF/BACITRAC ZN/POLY 15 GM TUBE TP SCH ×2 (08:33→16:17)
[2020-02-19] MEDS: TAMSULOSIN 0.4 MG CAP.SR.24H PO SCH (08:58)
[2020-02-19] MEDS: ATORVASTATIN 10 MG TABLET PO SCH (08:58)
[2020-02-19] MEDS: PANTOPRAZOLE 40 MG TABLET.DR PO SCH ×2 (08:58→16:29)
[2020-02-19] MEDS: ASPIRIN 81 MG TAB.CHEW PO SCH (08:58)
[2020-02-19] MEDS: DILTIAZEM HCL CD 240 MG PO SCH (08:58)
[2020-02-19] MEDS: LEVOFLOXACIN 500 MG /D5W 100ML 500 MG in PREMIX 1 EA IV SCH (10:07)
[2020-02-19] MEDS ORDERED: DILTIAZEM HCL CD 120 MG PO ONE (10:45)
[2020-02-19 16:00] VITALS: BP 111/65
--- NOTE | 2020-02-19 18:54 | NUR ---
MS RN CLOSING NOTES PATIENT REMAINS IN BED, AWAKE, A/OX4. PATIENT ON OXYGEN THERAPY AT 4 LPM VIA NASAL CANULA; BREATHING EVEN AND UNLABORED. NO PAIN COMPLAINT THROUGHOUT SHIFT. R WRIST IBV ACCESS PRESENT AND INTACT. ALL NEEDS ATTENDED THROUGHOUT THE DAY. SAFETY PRECAUTIONS IN PLACE; BED IN LOW POSITION AND LOCKED, RAILS UP X2, CALL LIGHT WITHIN REACH. WILL ENDORSE TO AUTOMATIC LATHE SETTER NURSE.
--- NOTE | 2020-02-19 19:25 | NUR ---
MS RN OPENING NOTES RECEIVED PATIENT RESTING IN BED, WATCHING TV. CALM & RELAXED. PATIENT ON 2-3 LPM VIA NASAL CANULA; BREATHING EVEN AND UNLABORED. NO ACUTE DISTRESS NOTED. NO S/S OF PAIN. R HAND IV ACCESS G # 22 PRESENT AND INTACT. DENIES ANY PAIN AT THIS TIME. SAFETY PRECAUTIONS IN PLACE, INSTRUCTED PATIENT TO CALL FOR HELP WHEN EVER NEEDED. BED IN LOW POSITION AND LOCKED, RAILS UP X2, CALL LIGHT WITHIN REACH. WILL CONTINUE TO MONITOR PATIENT.
[2020-02-19 20:00] VITALS: BP 104/70
[2020-02-19 20:22] VITALS: BP 104/70
[2020-02-19] MEDS: *INSULIN REGULAR(HUMULIN R)HUM 100 UNIT/ML VIAL SQ PRN (22:21)
--- NOTE | 2020-02-19 22:24 | NUR ---
MS RN NOTE PATIENT'S BS IS 136MG/DL, SNACK GIVEN & TOLERATED WELL. INSULIN 2 UNITS GIVEN PER PROTOCOL.WILL CONTINUE TO MONITOR.
[2020-02-20] MEDS: PIPERACILLIN /TAZOBACTAM 3.375 G in IV D5W 50 ML IV SCH ×4 (00:05→17:22)
[2020-02-20] MEDS: IPRATROPIUM NEB FS 0.5 MG/2.5 ML AMPUL.NEB NEB SCH ×4 (01:30→20:41)
[2020-02-20] MEDS: ALBUTEROL HALF STRENGTH 1.25 MG/3 ML VIAL.NEB NEB SCH ×4 (01:30→20:41)
[2020-02-20] MEDS: methylPREDNISolone SOD SUCC 125 MG/2ML VIAL IV SCH ×3 (05:20→21:17)
[2020-02-20] MEDS: BLOOD SUGAR DIAGNOSTIC 1 EACH STRIP VI SCH ×4 (06:53→22:11)
[2020-02-20] MEDS: INSULIN REGULAR, HUMAN 100 UNIT/ML 3 ML VIAL SQ PRN (06:54)
--- NOTE | 2020-02-20 06:55 | NUR ---
MS RN NOTE PATIENT'S BS IS 160 MG/DL, INSULIN 2 UNITS GIVEN PER PROTOCOL. PATIENT HAD JELLO & HAS BEEN DRINKING JUICE & PO FLUIDS. WILL ENDORSE TO AM RN FOR CONTINUITY OF CARE.
--- NOTE | 2020-02-20 07:04 | NUR ---
MS RN NOTE PATIENT IS A & O X 4, IN STABLE CONDITION, NO ACUTE CHANGES NOTED THROUGH OUT THE SHIFT. ASSISTED WITH ALL NEEDS & ADL CARE PROVIDED. WILL ENDORSE TO AM RN FOR CONTINUITY OF CARE.
--- NOTE | 2020-02-20 07:39 | NUR ---
RN OPEN NOTES PATIENT IS A/O X 4 WITH NO SIGNS OF DISTRESS ON 4L OF NASAL CANNULA. R WRIST #22G SL. NO COMPLAIN OF PAIN AT THIS TIME. SAFETY MEASURES ARE APPLIED, BED IS IN LOW POSITION SIDE RAILS UP X 2. CALL LIGHT WITHIN REACH. WILL CONTINUE TO MONITOR.
[2020-02-20 08:00] VITALS: BP 104/65
[2020-02-20] MEDS: TAMSULOSIN 0.4 MG CAP.SR.24H PO SCH (08:32)
[2020-02-20] MEDS: ATORVASTATIN 10 MG TABLET PO SCH (08:33)
[2020-02-20] MEDS: PANTOPRAZOLE 40 MG TABLET.DR PO SCH ×2 (08:33→16:31)
[2020-02-20] MEDS: NEOMY SULF/BACITRAC ZN/POLY 15 GM TUBE TP SCH ×2 (08:34→16:29)
[2020-02-20] MEDS: DILTIAZEM HCL CD 180 MG PO SCH (08:35)
[2020-02-20 08:47] LABS: BASOPHILS % (AUTO) 0.1 % (0.0-2.0); HEMATOCRIT 26 % (39-51); HEMOGLOBIN 8.7 g/dL (13.5-17.5); LYMPHOCYTES # (AUTO) 0.4 /CMM (0.8-4.8); LYMPHOCYTES % (AUTO) 7.7 % (20.0-44.0); MEAN CORPUSCULAR HGB CONC 34 g/dl (31.0-36.0); MEAN CORPUSCULAR VOLUME 94 fL (80-96); MONOCYTES # (AUTO) 0.2 /CMM (0.1-1.30); MONOCYTES % (AUTO) 3.8 % (2.0-12.0); NEUTROPHILS # (AUTO) 4.3 /CMM (1.8-8.9); NEUTROPHILS % (AUTO) 88.4 % (43.0-81.0); PLATELET COUNT (AUTO) 226 /CMM (150-450); RED BLOOD CELL COUNT(AUTO) 2.77 MIL/uL (4.5-6.0); WHITE BLOOD COUNT (AUTO) 4.9 K/uL (4.3-11.0)
[2020-02-20 09:11] LABS: BILIRUBIN,DIRECT 0.1 mg/dL (0.0-0.2); BILIRUBIN,TOTAL 0.2 mg/dL (0.2-1.0); CALCIUM, SERUM 9.2 mg/dL (8.5-10.1); CREATININE 1.2 mg/dL (0.6-1.3); PHOSPHORUS 2.9 mg/dL (2.5-4.9); POTASSIUM 4.2 mmol/L (3.5-5.1)
[2020-02-20] MEDS: ASPIRIN 81 MG TAB.CHEW PO SCH (09:13)
[2020-02-20 10:13] LABS: MAGNESIUM 2.4 mg/dL (1.8-2.4)
[2020-02-20] MEDS: *INSULIN REGULAR(HUMULIN R)HUM 100 UNIT/ML VIAL SQ PRN ×3 (12:52→21:34)
--- NOTE | 2020-02-20 19:20 | NUR ---
MS RN OPENING NOTES RECEIVED PATIENT IN BED ALERT AND ORIENTED X 4. VERBALLY RESPONSIVE AND ABLE TO FOLLOW DIRECTIONS. BREATHING REGULAR AND UNLABORED ON OXYGEN AT 2L/MIN VIA NASAL CANNULA. RIGHT WRIST G22 IV LINE INTACT AND PATENT, FLUSHING WELL. DENIES PAIN/DISCOMFORT AT THIS TIME. BED LOW AND LOCKED ON SEMI FOWLERS POSITION. CALL LIGHT IN REACH. WILL CONTINUE TO MONITOR.
--- NOTE | 2020-02-20 19:42 | NUR ---
RN CLOSING NOTES PATIENT IS A/O X 4 WITH NO SIGNS OF DISTRESS ON 2L OF NASAL CANNULA. R WRIST #22G SL. NO COMPLAIN OF PAIN AT THIS TIME. PATIENT KEPT CLEAN AND DRY. ALL NEEDS, CARE, TREATMENT,AND MEDICATIONS WERE ADMINISTERED ANTICIPATED PER ORDER. SAFETY MEASURES ARE APPLIED, BED IS IN LOW POSITION SIDE RAILS UP X 2. CALL LIGHT WITHIN REACH WILL ENDORSE TO THE HYDROELECTRIC COMPONENT MACHINIST NURSE.
[2020-02-20 20:00] VITALS: BP 140/90
[2020-02-21] MEDS: PIPERACILLIN /TAZOBACTAM 3.375 G in IV D5W 50 ML IV SCH ×5 (00:01→23:55)
[2020-02-21] MEDS: IPRATROPIUM NEB FS 0.5 MG/2.5 ML AMPUL.NEB NEB SCH ×4 (01:23→19:47)
[2020-02-21] MEDS: ALBUTEROL HALF STRENGTH 1.25 MG/3 ML VIAL.NEB NEB SCH ×4 (01:24→19:47)
[2020-02-21] MEDS: methylPREDNISolone SOD SUCC 125 MG/2ML VIAL IV SCH ×3 (05:02→21:15)
[2020-02-21] MEDS: INSULIN REGULAR, HUMAN 100 UNIT/ML 3 ML VIAL SQ PRN ×2 (06:35→17:25)
[2020-02-21] MEDS: BLOOD SUGAR DIAGNOSTIC 1 EACH STRIP VI SCH ×4 (06:36→21:15)
[2020-02-21 06:48] LABS: CREATININE 1.1 mg/dL (0.6-1.3); MAGNESIUM 2.3 mg/dL (1.8-2.4); PHOSPHORUS 2.8 mg/dL (2.5-4.9); POTASSIUM 3.6 mmol/L (3.5-5.1)
--- NOTE | 2020-02-21 06:50 | NUR ---
MS RN CLOSING NOTES PATIENT IN BED, ALERT AND ORIENTED X 4. AFEBRILE WITH NO S/S OF DISTRESS OBSERVED. WILL ENDORSE TO MORNING SHIFT FOR CONTINUITY OF CARE.
[2020-02-21 07:04] LABS: HEMATOCRIT 25 % (39-51); HEMOGLOBIN 8.3 g/dL (13.5-17.5); LYMPHOCYTES # (AUTO) 0.3 /CMM (0.8-4.8); LYMPHOCYTES % (AUTO) 6.5 % (20.0-44.0); MEAN CORPUSCULAR HGB CONC 34 g/dl (31.0-36.0); MEAN CORPUSCULAR VOLUME 93 fL (80-96); MONOCYTES # (AUTO) 0.2 /CMM (0.1-1.30); MONOCYTES % (AUTO) 3.8 % (2.0-12.0); NEUTROPHILS # (AUTO) 4.3 /CMM (1.8-8.9); NEUTROPHILS % (AUTO) 89.7 % (43.0-81.0); PLATELET COUNT (AUTO) 227 /CMM (150-450); RED BLOOD CELL COUNT(AUTO) 2.65 MIL/uL (4.5-6.0); WHITE BLOOD COUNT (AUTO) 4.8 K/uL (4.3-11.0)
--- NOTE | 2020-02-21 07:45 | NUR ---
MS RN OPENING NOTES RECEIVED PATIENT IN BED, AWAKE, A/O X4. PATIENT ON OXYGEN THERAPY AT 4 LPM VIA NASAL CANULA; NO DISTRESS NOTED AT THIS TIME, NO SOB. NO COMPLAINS OF PAIN AT THIS TIME. R WRIST IV ACCESS G #22 PRESENT AND INTACT. SAFETY PRECAUTIONS IN PLACE; BED IN LOW POSITION AND LOCKED, RAILS UP X2, CALL LIGHT WITHIN REACH. WILL CONTINUE TO MONITOR PATIENT.
[2020-02-21 08:00] VITALS: BP 140/98
[2020-02-21] MEDS: NEOMY SULF/BACITRAC ZN/POLY 15 GM TUBE TP SCH ×2 (08:07→16:23)
[2020-02-21] MEDS: ASPIRIN 81 MG TAB.CHEW PO SCH (08:10)
[2020-02-21] MEDS: DILTIAZEM HCL CD 180 MG PO SCH (08:11)
[2020-02-21] MEDS: TAMSULOSIN 0.4 MG CAP.SR.24H PO SCH (08:11)
[2020-02-21] MEDS: PANTOPRAZOLE 40 MG TABLET.DR PO SCH ×2 (08:11→16:24)
[2020-02-21] MEDS: ATORVASTATIN 10 MG TABLET PO SCH (08:11)
[2020-02-21 16:00] VITALS: BP 106/69
--- NOTE | 2020-02-21 18:47 | NUR ---
MS RN CLOSING NOTES PATIENT REMAINS IN BED, AWAKE, A/O X4. PATIENT ON OXYGEN THERAPY AT 4 LPM VIA NASAL CANULA; NO DISTRESS NOTED DURING THE SHIFT, NO SOB. NO COMPLAINS OF PAIN DURING THE DAY. R WRIST IV ACCESS G #22 PRESENT AND INTACT. ALL NEEDS ATTENDED THROUGHOUT THE DAY. SAFETY PRECAUTIONS IN PLACE; BED IN LOW POSITION AND LOCKED, RAILS UP X2, CALL LIGHT WITHIN REACH. WILL ENDORSE TO FOOD STYLIST NURSE.
--- NOTE | 2020-02-21 19:35 | NUR ---
MS RN OPENING NOTES RECEIVED PATIENT IN BED ALERT AND ORIENTED X 4. VERBALLY RESPONSIVE AND ABLE TO FOLLOW DIRECTIONS. BREATHING REGULAR AND UNLABORED ON OXYGEN AT 4L/MIN VIA NASAL CANNULA. RIGHT WRIST G22 IV LINE INTACT AND PATENT, FLUSHING WELL WITH NO S/S OF INFILTRATION NOTED. DENIES PAIN/DISCOMFORT AT THIS TIME. BED LOW AND LOCKED ON SEMI FOWLERS POSITION. CALL LIGHT IN REACH. WILL CONTINUE TO MONITOR.
[2020-02-21 20:00] VITALS: BP 124/72
[2020-02-21] MEDS: *INSULIN REGULAR(HUMULIN R)HUM 100 UNIT/ML VIAL SQ PRN (21:17)
--- NOTE | 2020-02-21 21:30 | NUR ---
MS RN NOTES BS 220mg/dl, 4UNITS REGULAR INSULIN GIVEN SQ. SNACKS PROVIDED ON BEDSIDE. WILL CONTINUE TO MONITOR.
[2020-02-21 21:35] VITALS: BP 124/72
[2020-02-22] MEDS: IPRATROPIUM NEB FS 0.5 MG/2.5 ML AMPUL.NEB NEB SCH ×4 (01:04→19:30)
[2020-02-22] MEDS: ALBUTEROL HALF STRENGTH 1.25 MG/3 ML VIAL.NEB NEB SCH ×4 (01:05→19:30)
[2020-02-22] MEDS: methylPREDNISolone SOD SUCC 125 MG/2ML VIAL IV SCH ×3 (04:21→21:21)
[2020-02-22] MEDS: PIPERACILLIN /TAZOBACTAM 3.375 G in IV D5W 50 ML IV SCH ×3 (05:47→17:46)
[2020-02-22] MEDS: INSULIN REGULAR, HUMAN 100 UNIT/ML 3 ML VIAL SQ PRN ×3 (06:32→18:01)
[2020-02-22] MEDS: BLOOD SUGAR DIAGNOSTIC 1 EACH STRIP VI SCH ×4 (06:32→21:23)
[2020-02-22 06:54] LABS: BASOPHILS % (AUTO) 0.1 % (0.0-2.0); HEMATOCRIT 28 % (39-51); HEMOGLOBIN 9.8 g/dL (13.5-17.5); LYMPHOCYTES # (AUTO) 0.4 /CMM (0.8-4.8); LYMPHOCYTES % (AUTO) 6.8 % (20.0-44.0); MEAN CORPUSCULAR HGB CONC 35 g/dl (31.0-36.0); MEAN CORPUSCULAR VOLUME 93 fL (80-96); MONOCYTES # (AUTO) 0.2 /CMM (0.1-1.30); MONOCYTES % (AUTO) 3.7 % (2.0-12.0); NEUTROPHILS # (AUTO) 5.2 /CMM (1.8-8.9); NEUTROPHILS % (AUTO) 89.4 % (43.0-81.0); PLATELET COUNT (AUTO) 277 /CMM (150-450); RED BLOOD CELL COUNT(AUTO) 3.03 MIL/uL (4.5-6.0); WHITE BLOOD COUNT (AUTO) 5.8 K/uL (4.3-11.0)
[2020-02-22 08:00] VITALS: BP 122/72
--- NOTE | 2020-02-22 08:04 | NUR ---
RN OPENING NOTE PATIENT IS IN BED RESTING COMFORTABLY. PATIENT IS IN NO ACUTE DISTRESS. PATIENTS BREATHING IS EVEN AND UNLABORED. PATIENT IS ON NASAL CANNULA ON 2L. PATIENT BED ALARM IS ON. SAFETY PRECAUTION IN PLACE. HOB ELEVATED. PATIENTS BED IS LOCKED IN THE LOWEST POSITION. CALL LIGHT WITHIN REACH. WILL CONTINUE TO MONITOR.
[2020-02-22 08:08] LABS: POTASSIUM 3.8 mmol/L (3.5-5.1)
[2020-02-22] MEDS: ATORVASTATIN 10 MG TABLET PO SCH (09:00)
[2020-02-22] MEDS: PANTOPRAZOLE 40 MG TABLET.DR PO SCH ×2 (09:00→17:46)
[2020-02-22] MEDS: ASPIRIN 81 MG TAB.CHEW PO SCH (09:00)
[2020-02-22] MEDS: TAMSULOSIN 0.4 MG CAP.SR.24H PO SCH (09:00)
[2020-02-22] MEDS: DILTIAZEM HCL CD 180 MG PO SCH (09:04)
[2020-02-22] MEDS: NEOMY SULF/BACITRAC ZN/POLY 15 GM TUBE TP SCH ×2 (09:07→17:58)
[2020-02-22] MEDS: HEPARIN SODIUM, PORCINE 5000 UNITS/1 ML VIAL SQ SCH ×2 (10:00→21:22)
--- NOTE | 2020-02-22 18:51 | NUR ---
RN CLOSING NOTE PATIENT IS IN BED RESTING COMFORTABLY. PATIENT IS ON OXYGEN NC ON 2L. HOB ELEVATED. PATIENT KEPT CLEAN DRY, AND COMFORTABLE THROUGHOUT THE SHIFT. NO FACIAL GRIMACING OR SIGNS OF PAIN PRESENT. BED ALARM IS ON. CALL LIGHT WITHIN REACH. BED IS IN THE LOWEST POSITION WITH SIDES RAILS UP. ENDORSE TO DAY LIGHT RELIEF OPERATOR NURSE FOR JEANNA.
--- NOTE | 2020-02-22 19:36 | NUR ---
RN OPENING NOTES PATIENT RECEIVED RESTING IN BED A/O X 4. ON 2L OF O2 WITH BREATHING EVEN AND UNLABORED, NO SOB NOTED. NO SIGNS OF ACUTE DISTRESS. NO COMPLAINTS OF PAIN OR DISCOMFORT AT THE MOMENT. IV LOCATED ON RA # 22 SL. SAFETY PRECAUTIONS IN PLACE WITH BED IN LOWEST POSITION, CALL LIGHT WITHIN REACH, BREAKS ON, SIDE RAILS. DISCHARGE ON HOLD, WAITING FOR O2 DELIVERY TO HOME.
[2020-02-23] MEDS: PIPERACILLIN /TAZOBACTAM 3.375 G in IV D5W 50 ML IV SCH ×5 (00:13→23:27)
[2020-02-23] MEDS: IPRATROPIUM NEB FS 0.5 MG/2.5 ML AMPUL.NEB NEB SCH ×4 (00:55→19:30)
[2020-02-23] MEDS: ALBUTEROL HALF STRENGTH 1.25 MG/3 ML VIAL.NEB NEB SCH ×4 (00:55→19:30)
[2020-02-23] MEDS: methylPREDNISolone SOD SUCC 125 MG/2ML VIAL IV SCH ×3 (05:40→22:20)
[2020-02-23] MEDS: BLOOD SUGAR DIAGNOSTIC 1 EACH STRIP VI SCH ×4 (06:45→22:18)
--- NOTE | 2020-02-23 07:04 | NUR ---
RN OPENING NOTES RECEIVED PT AWAKE AT THIS TIME.AOX4. NO SOB NOTED, NO S/S OF ANY APPARENT DISTRESS NOTED. NO C/O PAIN NOTED AT THIS TIME. RESPIRATIONS ARE EVEN AND UNLABORED. PT NOTED ON OXYGEN 2LPM VIA NC. IV ACCESS NOTED IN RFA G# 22, INTACT, PATENT AND FLUSHING WELL. ASPIRATION AND SAFETY PRECAUTION IN PLACE AND MAINTAINED AT ALL TIMES. BED IN LOWEST LOCKED POSITION, HOB ELEVATED, SIDE RAILS UP X 2, CALL LIGHT AND TABLE WITHIN REACH. WILL CONTINUE TO MONITOR
--- NOTE | 2020-02-23 07:21 | NUR ---
RN CLOSING NOTES PATIENT RESTING IN BED A/O X 4. ON 2L OF O2 WITH BREATHING EVEN AND UNLABORED, NO SOB NOTED. NO SIGNS OF ACUTE DISTRESS. NO COMPLAINTS OF PAIN OR DISCOMFORT AT THE MOMENT. IV LOCATED ON RA # 22 SL. SAFETY PRECAUTIONS IN PLACE WITH BED IN LOWEST POSITION, CALL LIGHT WITHIN REACH, BREAKS ON, SIDE RAILS. ALL NEEDS ATTENDED TO. AWAITING DISCHARGE. WILL ENDORSE TO ONCOMING SHIFT ABOUT JEANNA.
[2020-02-23 08:00] VITALS: BP 119/64
[2020-02-23] MEDS: ASPIRIN 81 MG TAB.CHEW PO SCH (09:41)
[2020-02-23] MEDS: PANTOPRAZOLE 40 MG TABLET.DR PO SCH ×2 (09:41→16:26)
[2020-02-23] MEDS: ATORVASTATIN 10 MG TABLET PO SCH (09:41)
[2020-02-23] MEDS: NEOMY SULF/BACITRAC ZN/POLY 15 GM TUBE TP SCH ×2 (09:41→16:26)
[2020-02-23] MEDS: TAMSULOSIN 0.4 MG CAP.SR.24H PO SCH (09:41)
[2020-02-23] MEDS: DILTIAZEM HCL CD 180 MG PO SCH (09:42)
[2020-02-23] MEDS: HEPARIN SODIUM, PORCINE 5000 UNITS/1 ML VIAL SQ SCH ×2 (09:44→22:16)
[2020-02-23 09:47] LABS: BASOPHILS % (AUTO) 0.1 % (0.0-2.0); HEMATOCRIT 30 % (39-51); HEMOGLOBIN 9.9 g/dL (13.5-17.5); LYMPHOCYTES # (AUTO) 0.2 /CMM (0.8-4.8); LYMPHOCYTES % (AUTO) 3.9 % (20.0-44.0); MEAN CORPUSCULAR HGB CONC 34 g/dl (31.0-36.0); MEAN CORPUSCULAR VOLUME 95 fL (80-96); MONOCYTES # (AUTO) 0.2 /CMM (0.1-1.30); MONOCYTES % (AUTO) 3.3 % (2.0-12.0); NEUTROPHILS % (AUTO) 92.7 % (43.0-81.0); PLATELET COUNT (AUTO) 307 /CMM (150-450); RED BLOOD CELL COUNT(AUTO) 3.12 MIL/uL (4.5-6.0); WHITE BLOOD COUNT (AUTO) 5.4 K/uL (4.3-11.0)
[2020-02-23 10:01] LABS: CALCIUM, SERUM 9.2 mg/dL (8.5-10.1); CREATININE 1.2 mg/dL (0.6-1.3); POTASSIUM 4.8 mmol/L (3.5-5.1)
[2020-02-23] MEDS: INSULIN REGULAR, HUMAN 100 UNIT/ML 3 ML VIAL SQ PRN ×2 (12:53→17:14)
--- NOTE | 2020-02-23 13:50 | NUR ---
IV ACCESS IN RFA INFILTRATED, REMOVED, PRESSURE APPLIED, SECURED WITH GAUZE AND TAPE. NO S/O BLEEDING NOTED. ICE APPLIED, ARM RAISED ON A PILLOW. WILL CONTINUE TO MONITOR
--- NOTE | 2020-02-23 14:02 | NUR ---
IV ACCESS INSERTED IN RAC G#20, GOOD BLOOD RETURN NOTED, INTACT PATENT AND FLUSHING WELL. PT TOLERATED WELL, WILL CONTINUE TO MONITOR
[2020-02-23 16:00] VITALS: BP 98/66
--- NOTE | 2020-02-23 19:49 | NUR ---
RN CLOSING NOTES PT AWAKE IN BED AT THIS TIME. PT REMAINED STABLE THROUGHOUT SHIFT. ALL CARE, NEED, MEDICATIONS AND TREATMENT ADMINISTERED ANTICIPATED PER ORDER. PT KEPT CLEAN AND DRY. PT REPOSITIONED Q2HR AND PRN. ASPIRATION AND SAFETY PRECAUTION IN PLACE AND MAINTAINED AT ALL TIMES. BED IN LOWEST LOCKED POSITION, HOB ELEVATED, SIDE RAILS UP X 2, CALL LIGHT AND TABLE WITHIN REACH. WILL ENDORSE TO BUSINESS SERVICES INTERN NURSE FOR JEANNA
[2020-02-23 20:00] VITALS: BP 116/59
[2020-02-23] MEDS: *INSULIN REGULAR(HUMULIN R)HUM 100 UNIT/ML VIAL SQ PRN (22:21)
[2020-02-24] MEDS: IPRATROPIUM NEB FS 0.5 MG/2.5 ML AMPUL.NEB NEB SCH ×4 (02:40→19:30)
[2020-02-24] MEDS: ALBUTEROL HALF STRENGTH 1.25 MG/3 ML VIAL.NEB NEB SCH ×4 (02:40→19:30)
[2020-02-24] MEDS: methylPREDNISolone SOD SUCC 125 MG/2ML VIAL IV SCH ×3 (04:52→21:49)
[2020-02-24] MEDS: PIPERACILLIN /TAZOBACTAM 3.375 G in IV D5W 50 ML IV SCH ×4 (05:06→23:31)
[2020-02-24] MEDS: BLOOD SUGAR DIAGNOSTIC 1 EACH STRIP VI SCH ×4 (06:57→21:52)
[2020-02-24] MEDS: INSULIN REGULAR, HUMAN 100 UNIT/ML 3 ML VIAL SQ PRN ×3 (07:00→17:33)
--- NOTE | 2020-02-24 07:36 | NUR ---
RN OPEN NOTES PATIENT IS A/O X 4 WITH NO SIGNS OF DISTRESS ON 2L OF NASAL CANNULA. R AC #20G SL. NO COMPLAIN OF PAIN AT THIS TIME. SAFETY MEASURES ARE APPLIED, BED IS IN LOW POSITION SIDE RAILS UP X 2. CALL LIGHT WITHIN REACH. WILL CONTINUE TO MONITOR.
[2020-02-24 08:00] VITALS: BP 120/62
--- NOTE | 2020-02-24 08:02 | NUR ---
RESIDENTIAL MONITOR NOTES ENDORSED TO AM NURSE. PT IN BED, RESTING COMFORTABLE. NO ACUTE EVENTS OVERNIGHT.
[2020-02-24] MEDS: PANTOPRAZOLE 40 MG TABLET.DR PO SCH ×2 (10:50→17:31)
[2020-02-24] MEDS: TAMSULOSIN 0.4 MG CAP.SR.24H PO SCH (10:50)
[2020-02-24] MEDS: ATORVASTATIN 10 MG TABLET PO SCH (10:50)
[2020-02-24] MEDS: ASPIRIN 81 MG TAB.CHEW PO SCH (10:50)
[2020-02-24] MEDS: DILTIAZEM HCL CD 180 MG PO SCH (10:51)
[2020-02-24] MEDS: HEPARIN SODIUM, PORCINE 5000 UNITS/1 ML VIAL SQ SCH ×2 (10:54→21:50)
[2020-02-24] MEDS: NEOMY SULF/BACITRAC ZN/POLY 15 GM TUBE TP SCH ×2 (11:01→17:33)
--- NOTE | 2020-02-24 15:00 | NUR ---
PATIENT REFUSES TO TAKE OFF NASAL CANNULA AND BE IN ROOM AIR HE STATES TO FEEL SOB.
[2020-02-24 16:00] VITALS: BP 123/60
--- NOTE | 2020-02-24 19:10 | NUR ---
rn ms notes received patient in bed awake alert and oriented x4 respirations even and unlabored with equal rise and fall of chest, denies any pain or discomfort at this time, iv site to right ac #20g intact and patent, no redness no infiltration, urinal at bedside, safety precautions rendered, call light kept within reach,all needs attended at this time, remains comfortable a will continue to monitor.
--- NOTE | 2020-02-24 19:45 | NUR ---
RN CLOSE NOTES PATIENT IS A/O X 4 WITH NO SIGNS OF DISTRESS ON 2L OF NASAL CANNULA. R AC #20G SL. NO COMPLAIN OF PAIN AT THIS TIME. PATIENT KEPT CLEAN AND DRY. ALL NEEDS, CARE, TREATMENT, AND MEDICATIONS WERE ADMINISTERED ANTICIPATED PER ORDER. SAFETY MEASURES ARE APPLIED, BED IS IN LOW POSITION SIDE RAILS UP X 2. CALL LIGHT WITHIN REACH WILL ENDORSE TO THE DEAF/HARD OF HEARING SPECIALIST NURSE.
[2020-02-24 20:00] VITALS: BP 132/63
[2020-02-24] MEDS: *INSULIN REGULAR(HUMULIN R)HUM 100 UNIT/ML VIAL SQ PRN (21:56)
[2020-02-25] MEDS: ALBUTEROL HALF STRENGTH 1.25 MG/3 ML VIAL.NEB NEB SCH ×4 (01:30→19:30)
[2020-02-25] MEDS: IPRATROPIUM NEB FS 0.5 MG/2.5 ML AMPUL.NEB NEB SCH ×4 (01:30→19:30)
--- NOTE | 2020-02-25 01:59 | NUR ---
rn ms notes complained of pain 5/10 generalized norco offered pt agreed given will continue to monitor.
--- NOTE | 2020-02-25 02:03 | NUR ---
refused rt tx
[2020-02-25] MEDS: PIPERACILLIN /TAZOBACTAM 3.375 G in IV D5W 50 ML IV SCH ×4 (05:41→23:41)
[2020-02-25] MEDS: methylPREDNISolone SOD SUCC 125 MG/2ML VIAL IV SCH ×3 (05:42→21:07)
[2020-02-25] MEDS: BLOOD SUGAR DIAGNOSTIC 1 EACH STRIP VI SCH ×4 (05:50→21:27)
[2020-02-25] MEDS: INSULIN REGULAR, HUMAN 100 UNIT/ML 3 ML VIAL SQ PRN ×2 (05:52→17:15)
--- NOTE | 2020-02-25 07:10 | NUR ---
rn ms closing notes patient in bed awake alert and oriented x4 respirations even and unlabored with equal rise and fall of chest, denies any pain or discomfort at this time, iv site to right ac #20g intact and patent, no redness no infiltration, urinal at bedside total output 600, safety precautions rendered, call light kept within reach,all needs attended at this time, remains comfortable a will continue to monitor and endorse to next shift, norco was effective.
--- NOTE | 2020-02-25 07:15 | NUR ---
MS RN OPENING NOTES PATIENT IS IN BED AWAKE AND VERBALLY RESPONSIVE. A/O X 4, ABLE TO MAKE NEEDS KNOWN. BREATHING EVEN AND UNLABORED, ON 2L OF O2 VIA NASAL CANNULA, NO SOB NOTED. IV LINE ON RAC #20G INTACT AND PATENT. SAFETY MEASURES IN PLACE: BED IS LOCKED AND IN LOWEST POSITION, SIDE RAILS UP X 2, CALL LIGHT WITHIN REACH. WILL CONTINUE TO MONITOR.
[2020-02-25 08:00] VITALS: BP 123/71
[2020-02-25] MEDS: ASPIRIN 81 MG TAB.CHEW PO SCH (08:35)
[2020-02-25] MEDS: PANTOPRAZOLE 40 MG TABLET.DR PO SCH ×2 (08:35→16:37)
[2020-02-25] MEDS: TAMSULOSIN 0.4 MG CAP.SR.24H PO SCH (08:35)
[2020-02-25] MEDS: DILTIAZEM HCL CD 180 MG PO SCH (08:36)
[2020-02-25] MEDS: HEPARIN SODIUM, PORCINE 5000 UNITS/1 ML VIAL SQ SCH ×2 (08:39→21:09)
[2020-02-25] MEDS: NEOMY SULF/BACITRAC ZN/POLY 15 GM TUBE TP SCH ×2 (08:39→16:36)
[2020-02-25 12:00] VITALS: BP 123/73
[2020-02-25] MEDS: *INSULIN REGULAR(HUMULIN R)HUM 100 UNIT/ML VIAL SQ PRN ×2 (12:31→21:29)
[2020-02-25 16:00] VITALS: BP 102/69
--- NOTE | 2020-02-25 19:15 | NUR ---
MS RN CLOSING NOTES PATIENT IS IN BED RESTING, ABLE TO BE AWAKENED, VERBALLY RESPONSIVE, FINISHED EATING DINNER. A/O X 4, ABLE TO MAKE NEEDS KNOWN. BREATHING EVEN AND UNLABORED, CONTINUES ON 2L OF O2 VIA NASAL CANNULA, NO SOB NOTED. ABLE TO TOLERATE ROOM AIR, O2 SAT BETWEEN 96-98% W/O SOB NOR RESPIRATORY DISTRESS, BUT PATIENT FEELS BETTER BEING ON O2. ASSISTED W/ ADLS TOLERATED. DUE MEDS GIVEN TODAY. ABLE TO USE URINAL AT BEDSIDE. IV LINE ON RAC #20G INTACT AND PATENT. SAFETY MEASURES MAINTAINED: BED IS LOCKED AND IN LOWEST POSITION, SIDE RAILS UP X 2, CALL LIGHT WITHIN REACH. WILL ENDORSE TO PREPARATION PLANT SUPERVISOR RN FOR JEANNA.
--- NOTE | 2020-02-25 19:20 | NUR ---
MS RN OPENING NOTES RECEIVED PATIENT RESTING IN BED, WATCHING TV, AWAKE AND VERBALLY RESPONSIVE. A/O X 4, ABLE TO MAKE NEEDS KNOWN. NO ACTIVE BLEEDING NOTED. BREATHING EVEN AND UNLABORED, ON 2L OF O2 VIA NASAL CANNULA, NO SOB NOTED. IV CATHETER ON RAC #20G, INTACT AND PATENT, SL. USES URINAL & BED SIDE COMMODE WHEN NEEDED. SAFETY MEASURES IN PLACE: BED IS LOCKED AND IN LOWEST POSITION, SIDE RAILS UP X 2, CALL LIGHT WITHIN REACH. WILL CONTINUE TO MONITOR.
--- NOTE | 2020-02-25 19:45 | NUR ---
MS RN NOTE PER RT, PATIENT REFUSED BREATHING TREATMENT DESPITE OF RISKS & BENEFITS EXPLANATIONS X 3.
[2020-02-25 20:00] VITALS: BP 126/77
[2020-02-26] MEDS: IPRATROPIUM NEB FS 0.5 MG/2.5 ML AMPUL.NEB NEB SCH ×4 (01:30→20:06)
[2020-02-26] MEDS: ALBUTEROL HALF STRENGTH 1.25 MG/3 ML VIAL.NEB NEB SCH ×4 (01:30→20:06)
[2020-02-26] MEDS: methylPREDNISolone SOD SUCC 125 MG/2ML VIAL IV SCH ×3 (05:03→20:48)
[2020-02-26] MEDS: PIPERACILLIN /TAZOBACTAM 3.375 G in IV D5W 50 ML IV SCH ×4 (05:51→23:01)
[2020-02-26] MEDS: BLOOD SUGAR DIAGNOSTIC 1 EACH STRIP VI SCH ×4 (06:44→21:00)
--- NOTE | 2020-02-26 07:02 | NUR ---
MS RN NOTE PATIENT SLEPT WELL AT NIGHT. NO ACUTE CHANGES NOTED. ABLE TO TRANSFER FROM BED TO COMMODE SAFELY. ON O2 @ 2 LPM VIA NC. STABLE AT THIS TIME. WILL ENDORSE TO AM RN FOR CONTINUITY OF CARE.
[2020-02-26] MEDS: INSULIN REGULAR, HUMAN 100 UNIT/ML 3 ML VIAL SQ PRN ×2 (07:31→12:33)
[2020-02-26 08:00] VITALS: BP 126/63
--- NOTE | 2020-02-26 08:02 | NUR ---
RN OPENING NOTES RECEIVED PATIENT ON BED, AWAKE ALERT AND ORIENTED X 4. NO COMPLAINED OF PAIN AT THIS TIME. PATIENT IN NO APPARENT RESPIRATORY DISTRESS NOTED. WILL CONTINUE TO MONITOR.
[2020-02-26] MEDS: HEPARIN SODIUM, PORCINE 5000 UNITS/1 ML VIAL SQ SCH (09:00)
[2020-02-26] MEDS: TAMSULOSIN 0.4 MG CAP.SR.24H PO SCH (09:54)
[2020-02-26] MEDS: DILTIAZEM HCL CD 180 MG PO SCH (09:54)
[2020-02-26] MEDS: ASPIRIN 81 MG TAB.CHEW PO SCH (09:54)
[2020-02-26] MEDS: PANTOPRAZOLE 40 MG TABLET.DR PO SCH ×2 (09:55→18:18)
[2020-02-26] MEDS: NEOMY SULF/BACITRAC ZN/POLY 15 GM TUBE TP SCH ×2 (09:56→18:22)
[2020-02-26] MEDS: APIXABAN 2.5 MG TABLET PO SCH ×2 (11:35→18:19)
[2020-02-26 16:00] VITALS: BP 116/66
[2020-02-26] MEDS: *INSULIN REGULAR(HUMULIN R)HUM 100 UNIT/ML VIAL SQ PRN ×2 (17:35→21:02)
--- NOTE | 2020-02-26 19:44 | NUR ---
RN CLOSING NOTES PATIENT IS ON BED. ALERT AND ORIENTED X4. PATIENT IN NO APPARENT RESPIRATORY DISTRESS NOTED. NO COMPLAINED OF PAIN AT THIS TIME. IV ACCESS AT RIGHT AC # 20 G PATENT AND INTACT. SEEN AND EXAMINED BY MD WITH ORDERS MADE AND CARRIED OUT. ALL DUE MEDICATIONS WAS GIVEN. SAFETY PRECAUTIONS WAS IN PLACED. BED IN LOWEST POSITION AND LOCKED X2. CALL LIGHT WITHIN REACH. WILL ENDORSED TO ENAMEL SHADER FOR JEANNA.
--- NOTE | 2020-02-26 19:50 | NUR ---
RN OPENING NOTES RECEIVED PATIENT ON BED, AWAKE ALERT AND ORIENTED X 4. NO COMPLAINED OF PAIN AT THIS TIME. BREATHING EVEN AND UNLABORED. CALL LIGHT WITHIN REACH. PATIENT IN NO APPARENT RESPIRATORY DISTRESS NOTED. KEPT CLEAN AND DRY. WILL CONTINUE TO MONITOR.
[2020-02-26 20:00] VITALS: BP 111/62
[2020-02-27] MEDS: IPRATROPIUM NEB FS 0.5 MG/2.5 ML AMPUL.NEB NEB SCH ×4 (01:44→20:12)
[2020-02-27] MEDS: ALBUTEROL HALF STRENGTH 1.25 MG/3 ML VIAL.NEB NEB SCH ×4 (01:44→20:12)
[2020-02-27] MEDS: methylPREDNISolone SOD SUCC 125 MG/2ML VIAL IV SCH ×3 (04:07→20:10)
[2020-02-27] MEDS: PIPERACILLIN /TAZOBACTAM 3.375 G in IV D5W 50 ML IV SCH ×4 (05:12→23:45)
--- NOTE | 2020-02-27 05:59 | NUR ---
RN CLOSING NOTES PATIENT IS ON BED. ALERT AND ORIENTED X4. PATIENT IN NO APPARENT RESPIRATORY DISTRESS NOTED. NO COMPLAINED OF PAIN AT THIS TIME. BREATHING EVEN AND UNLABORED. IV ACCESS AT RIGHT AC # 20 G PATENT AND INTACT. ALL DUE MEDICATIONS WAS GIVEN. SAFETY PRECAUTIONS WAS IN PLACED. BED IN LOWEST POSITION AND LOCKED X2. CALL LIGHT WITHIN REACH. WILL ENDORSED TO DAY SHIFT FOR JEANNA.
[2020-02-27] MEDS: BLOOD SUGAR DIAGNOSTIC 1 EACH STRIP VI SCH ×4 (06:30→21:26)
[2020-02-27] MEDS: *INSULIN REGULAR(HUMULIN R)HUM 100 UNIT/ML VIAL SQ PRN ×4 (06:34→21:29)
--- NOTE | 2020-02-27 07:30 | NUR ---
MS/RN OPENING NOTE Received patient resting in bed, A&O x 4. No complaints of pain and discomfort at this time. Breathing even and non-labored on 2L oxygen via NC. No cardiac distress noted. IV access noted on RAC #20g, patent and intact, and flushing well. Bed locked to its lowest position, side rails x 2 up, call light in hand. Will continue with current medical management.
[2020-02-27 08:00] VITALS: BP 123/66
[2020-02-27] MEDS: PANTOPRAZOLE 40 MG TABLET.DR PO SCH ×2 (08:39→17:27)
[2020-02-27] MEDS: ASPIRIN 81 MG TAB.CHEW PO SCH (08:39)
[2020-02-27] MEDS: TAMSULOSIN 0.4 MG CAP.SR.24H PO SCH (08:39)
[2020-02-27] MEDS: DILTIAZEM HCL CD 180 MG PO SCH (08:40)
[2020-02-27] MEDS: APIXABAN 2.5 MG TABLET PO SCH ×2 (08:42→17:32)
[2020-02-27] MEDS: NEOMY SULF/BACITRAC ZN/POLY 15 GM TUBE TP SCH ×2 (08:43→17:35)
--- NOTE | 2020-02-27 12:35 | NUR ---
MS/RN NOTE Patient tolerating room air well at rest, saturating at 92%. No respiratory distress noted.
[2020-02-27 16:00] VITALS: BP 115/61
--- NOTE | 2020-02-27 16:00 | NUR ---
MS/RN NOTE Noticed periods of shortness of breath when patient stands up and ambulates with FWW to bedside commode. Patient states the need of home oxygen upon discharge. Called case operator about patient's concerns, states to monitor patient's oxygen levels upon ambulation. Upon ambulation with FWW, patient desaturates to 85-87%, trying to catch his breath upon each step. Restarted patient on 2L oxygen via NC, patient states "I still feel short of breath whenever I move, and I do not want to get discharged without a home o2." Notified CM and charge manager of patient's concerns. CM states "awaiting for home o2 supplies before discharge." Addendum: 02/27/20 at 1839 by LAURENCE GARCIA RN On 2L oxygen via NC, patient currently saturates at 94-97%
--- NOTE | 2020-02-27 18:56 | NUR ---
MS/RN CLOSING NOTE Patient awake in bed, watching TV, A&O x 4. All needs met and attended to. No complaints of pain and discomfort at this time. Breathing even and non-labored on 2L oxygen via NC. No cardiac distress noted. IV access on RAC #20g remain patent and intact, and flushing well. Fall precautions maintained. Will endorse to maintenance technician 2nd shift nurse.
--- NOTE | 2020-02-27 19:30 | NUR ---
RN opening notes Pt is sitting in bed comfortably watching TV. Pt is alert and orientedX4. Respiration is normal in 2 L NC. No SOB. No S/S of distress noted. IV site RAC# 20 is clean, intact and SL. Safety precautions is maintained. Bed at low position, brakes locked, side rails upX2 and call light is within reach. Will continue to monitor.
[2020-02-27 20:25] VITALS: BP 118/72
[2020-02-27 22:01] VITALS: BP 118/72
[2020-02-28] MEDS: IPRATROPIUM NEB FS 0.5 MG/2.5 ML AMPUL.NEB NEB SCH ×4 (02:18→19:30)
[2020-02-28] MEDS: ALBUTEROL HALF STRENGTH 1.25 MG/3 ML VIAL.NEB NEB SCH ×4 (02:18→19:30)
[2020-02-28] MEDS: methylPREDNISolone SOD SUCC 125 MG/2ML VIAL IV SCH ×3 (04:28→21:34)
[2020-02-28] MEDS: PIPERACILLIN /TAZOBACTAM 3.375 G in IV D5W 50 ML IV SCH (05:26)
--- NOTE | 2020-02-28 06:50 | NUR ---
RN closing notes Pt is resting in bed comfortably. Pt is alert and orientedX4. Respiration is normal in 2 L NC. No SOB. No S/S of distress noted. IV site RAC# 20 is clean, intact and SL. VS is stable. Afebrile. Routine meds were given as ordered. Kept Pt clean, dry and comfortable. Safety precautions is maintained. Bed at low position, brakes locked, side rails upX2 and call light is within reach. Will endorse to morning nurse for JEANNA.
--- NOTE | 2020-02-28 07:47 | NUR ---
RN Opening note Received patient in bed, AO x 4 able to responds all stimuli, Pt does no appears pain or distress. Skin is warm to touch keep clean/dry intact IV site, respiratory even and unlabored with oxygen at 2LPM. Kept locked bed with elevated HOB for aspiration precaution and ensure airway and lowest bed foe safety. Call light within reach, will continue to monitor.
[2020-02-28 08:00] VITALS: BP 116/46
[2020-02-28] MEDS: BLOOD SUGAR DIAGNOSTIC 1 EACH STRIP VI SCH ×4 (08:36→22:04)
[2020-02-28] MEDS: TAMSULOSIN 0.4 MG CAP.SR.24H PO SCH (08:42)
[2020-02-28] MEDS: PANTOPRAZOLE 40 MG TABLET.DR PO SCH ×2 (08:42→18:18)
[2020-02-28] MEDS: ASPIRIN 81 MG TAB.CHEW PO SCH (08:42)
[2020-02-28] MEDS: DILTIAZEM HCL CD 180 MG PO SCH (08:42)
[2020-02-28] MEDS: *INSULIN REGULAR(HUMULIN R)HUM 100 UNIT/ML VIAL SQ PRN ×4 (08:45→22:14)
[2020-02-28] MEDS: APIXABAN 2.5 MG TABLET PO SCH ×2 (08:47→18:21)
[2020-02-28] MEDS: NEOMY SULF/BACITRAC ZN/POLY 15 GM TUBE TP SCH ×2 (08:48→17:00)
[2020-02-28 10:38] LABS: HEMOGLOBIN 9.2 g/dL (13.5-17.5)
[2020-02-28 10:47] LABS: CALCIUM, SERUM 8.4 mg/dL (8.5-10.1); POTASSIUM 3.1 mmol/L (3.5-5.1)
[2020-02-28] MEDS ORDERED: POTASSIUM CHLORIDE 20 MEQ TAB.PRT.SR PO ONE (12:30)
[2020-02-28 16:00] VITALS: BP 116/66
--- NOTE | 2020-02-28 18:40 | NUR ---
RN closing Patient in bed resting, does no appears pain or discomfort. Skin is warm to touch keep clean/dry, intact IV site. Respiratory even and unlabored with oxygen at 2LPM O2sat 100%. Kept elevated HOB for ensure air way and aspiration precaution and lowest bed for safety. Call light within reach, will endorse shift commander.
--- NOTE | 2020-02-28 19:30 | NUR ---
MS/RN OPENING NOTES RECEIVED PATIENT IN BED RESTING. PATIENT IS ALERT AND ORIENTED X 4. PATIENT BREATHING IS EVEN AND UNLABORED. NO SIGNS OF SOB OR RESPIRATORY DISTRESS NOTED. PATIENT STATES NO PAIN AT THIS TIME. PATIENT HAS IV ACCESS ON R AC FLUSHING WELL. SAFETY MEASURES ARE IN PLACE, BED IS LOCKED AND PLACED IN THE LOWEST POSITION, CALL LIGHT IS WITHIN REACH. WILL CONTINUE TO MONITOR THROUGH OUT SHIFT.
[2020-02-28 20:00] VITALS: BP 131/68
[2020-02-29] MEDS: IPRATROPIUM NEB FS 0.5 MG/2.5 ML AMPUL.NEB NEB SCH ×5 (01:42→20:47)
[2020-02-29] MEDS: ALBUTEROL HALF STRENGTH 1.25 MG/3 ML VIAL.NEB NEB SCH ×5 (01:42→20:47)
[2020-02-29] MEDS: methylPREDNISolone SOD SUCC 125 MG/2ML VIAL IV SCH ×3 (05:09→21:03)
--- NOTE | 2020-02-29 06:30 | NUR ---
MS/RN CLOSING NOTES PATIENT IN BED SLEEPING, EASY TO AROUSE. PATIENT IS ALERT AND ORIENTED X 4. PATIENT BREATHING IS EVEN AND UNLABORED. NO SIGNS OF SOB OR RESPIRATORY DISTRESS NOTED. PATIENT STATES NO PAIN AT THIS TIME. PATIENT HAS IV ACCESS ON R AC FLUSHING WELL. ALL PATIENT NEEDS HAVE BEEN MET DURING SHIFT. SAFETY MEASURES ARE IN PLACE, BED IS LOCKED AND PLACED IN THE LOWEST POSITION, CALL LIGHT IS WITHIN REACH. WILL ENDORSE CARE TO DAY SHIFT NURSE.
[2020-02-29] MEDS: BLOOD SUGAR DIAGNOSTIC 1 EACH STRIP VI SCH ×4 (06:55→22:24)
[2020-02-29] MEDS: INSULIN REGULAR, HUMAN 100 UNIT/ML 3 ML VIAL SQ PRN (06:57)
[2020-02-29 08:00] VITALS: BP 128/74
[2020-02-29] MEDS: ASPIRIN 81 MG TAB.CHEW PO SCH (09:11)
[2020-02-29] MEDS: TAMSULOSIN 0.4 MG CAP.SR.24H PO SCH (09:11)
[2020-02-29] MEDS: PANTOPRAZOLE 40 MG TABLET.DR PO SCH ×2 (09:11→17:41)
[2020-02-29] MEDS: DILTIAZEM HCL CD 180 MG PO SCH (09:12)
[2020-02-29] MEDS: APIXABAN 2.5 MG TABLET PO SCH ×2 (09:14→17:46)
[2020-02-29] MEDS: NEOMY SULF/BACITRAC ZN/POLY 15 GM TUBE TP SCH ×2 (13:25→17:41)
[2020-02-29] MEDS: *INSULIN REGULAR(HUMULIN R)HUM 100 UNIT/ML VIAL SQ PRN ×3 (13:28→22:27)
[2020-02-29 16:01] VITALS: BP 125/73
--- NOTE | 2020-02-29 19:00 | NUR ---
m/s target aircraft technician: notes no change of poa. report given to caron (primary nurse) for continuity of care.
--- NOTE | 2020-02-29 20:00 | NUR ---
ms staci initial notes received report from am nurse and seen pt in bed awake and alert watching TV at this time. no signs of any acute distress noted. heplock on right AC patent and intact. denies any pain or any discomfort. kept him warm and comfortable at all times. place call light at reach, will continue monitoring.
[2020-02-29 20:38] VITALS: BP 113/74
[2020-03-01] MEDS: IPRATROPIUM NEB FS 0.5 MG/2.5 ML AMPUL.NEB NEB SCH ×4 (00:38→19:39)
[2020-03-01] MEDS: ALBUTEROL HALF STRENGTH 1.25 MG/3 ML VIAL.NEB NEB SCH ×4 (00:38→19:39)
[2020-03-01] MEDS: methylPREDNISolone SOD SUCC 125 MG/2ML VIAL IV SCH ×3 (05:04→21:35)
[2020-03-01] MEDS: BLOOD SUGAR DIAGNOSTIC 1 EACH STRIP VI SCH ×4 (06:37→22:13)
[2020-03-01] MEDS: *INSULIN REGULAR(HUMULIN R)HUM 100 UNIT/ML VIAL SQ PRN ×3 (06:46→22:19)
--- NOTE | 2020-03-01 07:30 | NUR ---
RN MS NOTES PT IN BED, AWAKE, ALERT AND ORIENTED, NO COMPLAINT OF PAIN OR ANY DISCOMFORT, NOT IN DISTRESS, CALL LIGHT WITHIN REACH, KEPT WARM AND COMFORTABLE IN BED.
--- NOTE | 2020-03-01 07:45 | NUR ---
TELE RESEARCH FELLOW CLOSING NOTES' MORNING CARE DONE AND PT BACK TO REST . NO SIGNS OF ANY DISCOMFORT AND ANY ACUTE DISTRESS NOTED . ALL DUE MEDS GIVEN AND ALL NEEDS MET. BLOODS SUGAR CHECKED DONE 173, 3 UNITS OF INSULIN GIVEN JADE SQ ORDERED. KEPT HIM WARM AND COMFORTABLE AT ALL TIMES. WILL ENDORSE TO AM NURSE FOR CONTINUITY OF CARE. PLACE CALL LIGHT AT REACH.
[2020-03-01 08:00] VITALS: BP_SYST 110; BP_SYST 123; BP_DIAS 67; BP_DIAS 80
[2020-03-01] MEDS: ASPIRIN 81 MG TAB.CHEW PO SCH (09:22)
[2020-03-01] MEDS: PANTOPRAZOLE 40 MG TABLET.DR PO SCH ×2 (09:23→17:00)
[2020-03-01] MEDS: TAMSULOSIN 0.4 MG CAP.SR.24H PO SCH (09:23)
[2020-03-01] MEDS: DILTIAZEM HCL CD 180 MG PO SCH (09:25)
[2020-03-01 10:55] LABS: HEMOGLOBIN 9.3 g/dL (13.5-17.5)
[2020-03-01] MEDS: APIXABAN 2.5 MG TABLET PO SCH ×2 (11:28→17:09)
[2020-03-01] MEDS: NEOMY SULF/BACITRAC ZN/POLY 15 GM TUBE TP SCH ×2 (12:25→17:03)
[2020-03-01 16:00] VITALS: BP 110/67
[2020-03-01] MEDS: INSULIN REGULAR, HUMAN 100 UNIT/ML 3 ML VIAL SQ PRN (18:12)
--- NOTE | 2020-03-01 19:00 | NUR ---
RN MS NOTES PT IN BED, RESTING, DENIES PAIN, RESPIRATIONS NORMAL, CALL LIGHT WITHIN REACH, PM MEDS GIVEN ORDERED, ALL NEEDS ATTENDED.
--- NOTE | 2020-03-01 20:00 | NUR ---
MS HUMBLE INITIAL NOTES RECEIVED REPORT FROM AM NURSE AND SEEN PT IN RESTING AT THIS TIME , BREATHING EVEN AND UNLABORED, NOT IN ANY ACUTE DISTRESS NOTED. KEPT HIM WARM AND COMFORTABLE AT ALL TIMES. PLACE CALL LIGHT AT REACH. BED ALARM SET FOR PT SAFETY. WILL CONTINUE MONITORING.
[2020-03-01 20:46] VITALS: BP 117/77
--- NOTE | 2020-03-01 22:00 | NUR ---
ms staci notes Pt awake and alert, blood sugar checked done 174, 3 units of insulin given domonique SQ as ordered. snacks also served. no signs of any hypo glycemia noted. kept him warm and comfortable at all times. will continue monitoring. place call light at reach.
[2020-03-02] MEDS: ALBUTEROL HALF STRENGTH 1.25 MG/3 ML VIAL.NEB NEB SCH ×4 (00:54→19:56)
[2020-03-02] MEDS: IPRATROPIUM NEB FS 0.5 MG/2.5 ML AMPUL.NEB NEB SCH ×4 (00:54→19:56)
[2020-03-02] MEDS: methylPREDNISolone SOD SUCC 125 MG/2ML VIAL IV SCH ×3 (04:30→21:19)
[2020-03-02] MEDS: BLOOD SUGAR DIAGNOSTIC 1 EACH STRIP VI SCH ×4 (05:42→22:03)
[2020-03-02] MEDS: *INSULIN REGULAR(HUMULIN R)HUM 100 UNIT/ML VIAL SQ PRN ×2 (05:49→22:13)
--- NOTE | 2020-03-02 07:36 | NUR ---
MS RN OPENING NOTES RECEIVED PATIENT IN BED AWAKE, A/O X4. ABLE TO VERBALIZED NEEDS, DENIES PAIN OR ANY DISCOMFORTS AT THIS TIME. ON SUPPLEMENTAL 02 VIA N/C AT 2LPM, TOLERATING WELL, BREATHING IS EVEN AND UNLABORED. IV ACCESS ON RAC G#20 INTACT, PATENT AND FLUSHING WELL. SAFETY MEASURES ARE IN PLACE: BED IS LOCKED AND IN LOWEST POSITION, SR UP X2 AND CALL LIGHT IS WITHIN REACH. WILL CONTINUE TO MONITOR PT ACCORDINGLY.
--- NOTE | 2020-03-02 07:41 | NUR ---
MS PASTING INSPECTOR CLOSING NOTES BLOOD SUGAR 180 , 3 UNITS OF INSULIN , NO SIGNS OF HYPO GLYCEMIA NOTED. KEPT HIM WARM AND COMFORTABLE AT ALL TIMES. ENDORSE TO AM NURSE.
[2020-03-02 08:09] VITALS: BP 128/74
[2020-03-02] MEDS: PANTOPRAZOLE 40 MG TABLET.DR PO SCH ×2 (08:29→16:45)
[2020-03-02] MEDS: TAMSULOSIN 0.4 MG CAP.SR.24H PO SCH (08:30)
[2020-03-02] MEDS: DILTIAZEM HCL CD 180 MG PO SCH (08:30)
[2020-03-02] MEDS: NEOMY SULF/BACITRAC ZN/POLY 15 GM TUBE TP SCH ×2 (08:30→16:46)
[2020-03-02] MEDS: ASPIRIN 81 MG TAB.CHEW PO SCH (08:30)
[2020-03-02] MEDS: APIXABAN 2.5 MG TABLET PO SCH ×2 (08:31→16:45)
[2020-03-02] MEDS: INSULIN REGULAR, HUMAN 100 UNIT/ML 3 ML VIAL SQ PRN ×2 (11:44→17:28)
[2020-03-02] MEDS: ALBUTEROL FS 2.5 MG/3 ML VIAL.NEB NEB PRN (14:50)
[2020-03-02 16:00] VITALS: BP 115/71
--- NOTE | 2020-03-02 19:46 | NUR ---
MS RN CLOSING NOTES PATIENT IN BED AWAKE AT THIS TIME. HOB ELEVATED. A/O X4. ABLE TO VERBALIZED NEEDS. ON SUPPLEMENTAL 02 VIA N/C AT 2LPM, TOLERATING WELL, BREATHING IS EVEN AND UNLABORED. IV ACCESS ON RAC G#20 INTACT, PATENT AND FLUSHING WELL. ALL NEEDS AND CARE ATTENDED WELL. SAFETY MEASURES ARE IN PLACE: BED IS LOCKED AND IN LOWEST POSITION, SR UP X2 AND CALL LIGHT IS WITHIN REACH. ENDORSED JEANNA TO DISTRIBUTOR OF DIRECTORIES RN LENKA..
--- NOTE | 2020-03-02 19:50 | NUR ---
MS RN OPENING NOTES RECEIVED PATIENT IN BED AWAKE, A/O X4. ABLE TO VERBALIZE NEEDS. DENIES ANY PAIN OR DISCOMFORT AT THIS TIME. ON SUPPLEMENTAL 02 VIA N/C AT 2LPM, TOLERATING WELL, BREATHING EVEN AND UNLABORED. IV ACCESS ON RAC G#20 INTACT, PATENT AND FLUSHING WELL. REPOSITIONED FOR COMFORT. SAFETY MEASURES ARE IN PLACE, BED IS LOCKED AND IN LOWEST POSITION, SR UP X2 AND CALL LIGHT IS WITHIN REACH. WILL CONTINUE TO MONITOR.
[2020-03-02 20:00] VITALS: BP_SYST 116; BP_SYST 135; BP_DIAS 57; BP_DIAS 81
[2020-03-03] MEDS: IPRATROPIUM NEB FS 0.5 MG/2.5 ML AMPUL.NEB NEB SCH ×4 (01:32→19:43)
[2020-03-03] MEDS: ALBUTEROL HALF STRENGTH 1.25 MG/3 ML VIAL.NEB NEB SCH ×4 (01:32→19:43)
[2020-03-03] MEDS: methylPREDNISolone SOD SUCC 125 MG/2ML VIAL IV SCH ×3 (05:00→21:00)
[2020-03-03] MEDS: INSULIN REGULAR, HUMAN 100 UNIT/ML 3 ML VIAL SQ PRN ×3 (06:46→16:34)
[2020-03-03] MEDS: BLOOD SUGAR DIAGNOSTIC 1 EACH STRIP VI SCH ×4 (06:49→22:29)
[2020-03-03 07:22] LABS: HEMATOCRIT 24 % (39-51); HEMOGLOBIN 8.1 g/dL (13.5-17.5); LYMPHOCYTES # (AUTO) 0.1 /CMM (0.8-4.8); LYMPHOCYTES % (AUTO) 1.5 % (20.0-44.0); MEAN CORPUSCULAR HGB CONC 33 g/dl (31.0-36.0); MEAN CORPUSCULAR VOLUME 95 fL (80-96); MONOCYTES # (AUTO) 0.1 /CMM (0.1-1.30); MONOCYTES % (AUTO) 1.8 % (2.0-12.0); NEUTROPHILS # (AUTO) 7.6 /CMM (1.8-8.9); NEUTROPHILS % (AUTO) 96.7 % (43.0-81.0); PLATELET COUNT (AUTO) 173 /CMM (150-450); RED BLOOD CELL COUNT(AUTO) 2.58 MIL/uL (4.5-6.0); WHITE BLOOD COUNT (AUTO) 7.8 K/uL (4.3-11.0)
--- NOTE | 2020-03-03 07:39 | NUR ---
MS RN CLOSING NOTES PATIENT IN BED AWAKE, A/O X4. ABLE TO VERBALIZE NEEDS. DENIES ANY PAIN OR DISCOMFORT AT THIS TIME. ON SUPPLEMENTAL 02 VIA N/C AT 2LPM, TOLERATING WELL, BREATHING EVEN AND UNLABORED. IV ACCESS ON RAC G#20 INTACT, PATENT AND FLUSHING WELL. REPOSITIONED FOR COMFORT. SAFETY MEASURES ARE IN PLACE, BED IS LOCKED AND IN LOWEST POSITION, SR UP X2 AND CALL LIGHT IS WITHIN REACH. WILL ENDORSE TO AM NURSE FOR CONTINUITY CARE.
--- NOTE | 2020-03-03 07:56 | NUR ---
MS RN NOTES PATIENT RECEIVED IN BED RESTING COMFORTABLY, ALERT AND ORIENTED X 4. ON NASAL CANNULA 2 LITERS WITH NO RESPIRATORY DISTRESS AT THIS TIME. PATIENT SKIN WARM AND DRY TO TOUCH, IV ACCESS INTACT AND PATENT. PATIENT PRESENTING WITH NO PAIN OR DISCOMFORT AT THIS TIME. SAFETY PRECAUTIONS IMPLEMENTED WITH BED LOCKED, BILATERAL SIDE RAILS UP, BED LOWEST IN POSITION, AND CALL LIGHT WITHIN EASY REACH. WILL CONTINUE TO MONITOR.
[2020-03-03 08:00] VITALS: BP 112/67
[2020-03-03] MEDS: PANTOPRAZOLE 40 MG TABLET.DR PO SCH ×2 (08:15→16:26)
[2020-03-03] MEDS: TAMSULOSIN 0.4 MG CAP.SR.24H PO SCH (08:15)
[2020-03-03] MEDS: ASPIRIN 81 MG TAB.CHEW PO SCH (08:15)
[2020-03-03] MEDS: APIXABAN 2.5 MG TABLET PO SCH ×2 (08:16→16:26)
[2020-03-03] MEDS: DILTIAZEM HCL CD 180 MG PO SCH (08:18)
[2020-03-03] MEDS: NEOMY SULF/BACITRAC ZN/POLY 15 GM TUBE TP SCH ×2 (08:20→16:27)
--- NOTE | 2020-03-03 14:23 | NUR ---
called [facility] [phone] and spoke with Morelia- she will request dispatch for O2 delivery. Addendum: 03/03/20 at 1538 by ELISA CHENEY RN Amended: Links added.
[2020-03-03 16:00] VITALS: BP 102/59
--- NOTE | 2020-03-03 16:25 | NUR ---
per Ashleigh at [facility] [phone], they cannot supply the oxygen as they are not contracted with patient insurance.Spoke with Carolin GALLO @ [facility] [phone], will approve home O2 and fax YUNG to [facility]. Addendum: 03/03/20 at 2110 by ELISA CHENEY RN Amended: Links added.
--- NOTE | 2020-03-03 16:30 | NUR ---
MS RN NOTES HELD SCHEDULE ELIQUIS DUE TO SPORTS BROADCASTING INTERNSHIPDIANE ORDERING TO HOLD DOSE, MISCELLANEOUS ORDERED PLACE BY SPORTS BROADCASTING INTERNSHIP, WILL CARRY OUT ORDER AND WILL CONTINUE TO MONITOR PATIENT.
--- NOTE | 2020-03-03 17:28 | NUR ---
Per Ashleigh at [facility] [place]- will have portable O2 and concentrator delivered tonight.Spoke with patient- will go home once home delivered. Addendum: 03/03/20 at 2112 by ELISA CHENEY RN Amended: Links added.
--- NOTE | 2020-03-03 18:10 | NUR ---
patient states has no transportation to go home tonight. available [facility] [phone] eta 11pm Addendum: 03/03/20 at 2226 by ELISA CHENEY RN Amended: Links added.
[2020-03-03 18:17] VITALS: BP 102/59
--- NOTE | 2020-03-03 19:11 | NUR ---
MS RN NOTES PATIENT IN BED RESTING COMFORTABLY, ALERT AND ORIENTED X 4. ON NASAL CANNULA 2 LITERS WITH NO RESPIRATORY DISTRESS AT THIS TIME. PATIENT SKIN WARM AND DRY TO TOUCH, IV ACCESS INTACT AND PATENT. MET ALL OF PATIENT'S NEEDS. PATIENT PRESENTING WITH NO PAIN OR DISCOMFORT AT THIS TIME. SAFETY PRECAUTIONS IMPLEMENTED WITH BED LOCKED, BILATERAL SIDE RAILS UP, BED LOWEST IN POSITION, AND CALL LIGHT WITHIN EASY REACH. WILL ENDORSE PLAN OF CARE TO UPCOMING RN.
[2020-03-03 21:02] VITALS: BP 113/75
[2020-03-03] MEDS: *INSULIN REGULAR(HUMULIN R)HUM 100 UNIT/ML VIAL SQ PRN (22:24)
[2020-03-04] MEDS: IPRATROPIUM NEB FS 0.5 MG/2.5 ML AMPUL.NEB NEB SCH (01:22)
[2020-03-04] MEDS: ALBUTEROL HALF STRENGTH 1.25 MG/3 ML VIAL.NEB NEB SCH (01:22)
--- NOTE | 2020-03-04 01:41 | NUR ---
YOUTH MINISTER NOTE Discharge instructions and paperwork reviewed with patient. Patient signed discharged paperwork. IV site removed. Patient tolerated well. All belongings and valuables given to patient. Patient signed belongings list. No acute distress or SOB noted.
[2020-03-04] MEDS ORDERED: LOSA100T31 PO (15:04)
[2020-03-04] MEDS ORDERED: FURO-144 PO (15:04)
[2020-03-04] MEDS ORDERED: METO5TAB7 PO (15:04)
[2020-03-04] MEDS ORDERED: WARF2.5T85 PO (15:04)
[2020-03-04] MEDS ORDERED: DILT300T11 PO (15:04)
== END 2020-03-04 01:24 | disposition home or self-care (01) | DRG 242 ==
LOC: ER 13:30 → TRANSITION 17:04 → UNDOADMIN 17:04 → TELE 21:21 → MED 02-19 11:17
PROVIDERS: ADMIT Internal Medicine; ATTEND Internal Medicine
PROC: 0BDM8ZX Extraction of Bilateral Lungs, Via Natural or Artificial Opening Endoscopic, Diagnostic (ICD-10-PCS; 2020-02-11)
PROC: 0JH604Z Insertion of Pacemaker, Single Chamber into Chest Subcutaneous Tissue and Fascia, Open Approach (ICD-10-PCS; principal; 2020-02-16)
PROC: 02HK3JZ Insertion of Pacemaker Lead into Right Ventricle, Percutaneous Approach (ICD-10-PCS; 2020-02-16)
DX: I49.5 Sick sinus syndrome (principal); N17.0 Acute kidney failure with tubular necrosis; I21.A1 Myocardial infarction type 2; J15.9 Unspecified bacterial pneumonia; G93.49 Other encephalopathy; D61.818 Other pancytopenia; C34.90 Malignant neoplasm of unspecified part of unspecified bronchus or lung; I48.91 Unspecified atrial fibrillation; E87.6 Hypokalemia; E83.42 Hypomagnesemia; I11.0 Hypertensive heart disease with heart failure; E83.52 Hypercalcemia; I50.9 Heart failure, unspecified; N40.0 Benign prostatic hyperplasia without lower urinary tract symptoms; E83.39 Other disorders of phosphorus metabolism; R59.0 Localized enlarged lymph nodes; E11.9 Type 2 diabetes mellitus without complications; Z79.84 Long term (current) use of oral hypoglycemic drugs; Z79.51 Long term (current) use of inhaled steroids; Z79.899 Other long term (current) drug therapy; F03.90 Unspecified dementia, unspecified severity, without behavioral disturbance, psychotic disturbance, mood disturbance, and anxiety; F17.200 Nicotine dependence, unspecified, uncomplicated; I25.2 Old myocardial infarction; Z20.822 Contact with and (suspected) exposure to COVID-19; I70.0 Atherosclerosis of aorta; I27.20 Pulmonary hypertension, unspecified; K76.89 Other specified diseases of liver; T46.0X5A Adverse effect of cardiac-stimulant glycosides and drugs of similar action, initial encounter; Y92.9 Unspecified place or not applicable; T46.1X5A Adverse effect of calcium-channel blockers, initial encounter; I72.3 Aneurysm of iliac artery
CPT/HCPCS: 36415; 36600; 70450-TC; 71045-TC; 71250-TC; 80048-TC; 80053-TC; 80076-TC; 80162-TC; 82272-TC; 82378; 82728-TC; 82784; 82803-TC; 82962-TC; 83540-TC; 83615-TC; 83735-TC; 84100-TC; 84155; 84165; 84484-TC; 85025-TC; 85027-TC; 85610-TC; 85730-TC; 86225; 86235; 86334; 86431-TC; 86706; 86803; 87040-TC; 87081-TC; 87340; 88104-TC; 88108-TC; 88305-TC; 88341; 88342; 93307-TC; 93970-TC; 94760-TC; 94799-TC; 97112-TC; 97116-TC; 97530-TC; A4216; A4565; C1786; G0378; J0461; J0690; J1162; J1644; J1815; J1956; J2405; J2430; J2543; J2704; J2930; J3475; J3480; J3490; J7030; J7040; J7042; J7050; J7060; Q9967

== ENCOUNTER 2020-03-04 13:11 | Inpatient (IN) | payer BC, OTHER ==
[~2020-03-04] VITALS: Ht 165.1 cm; Wt 76.2 kg
[~2020-03-04 13:11] MED LIST: ALBU18HF2 IH; ATOR10TA PO; CHOL200010 PO; DIGO125T PO; METF-440 PO; MULT-1168 PO; OMEG-178 PO; TAMS-12 PO; TERA1CAP11 PO
--- NOTE | 2020-03-04 13:11 | NUR ---
PT BIBRA 39 FROM HOME C/O SOB 93 ON RA ON NC AT 2LPM 02 SAT AT 99%, PT IS AAOX4, NOT IN RESPIRATORY DISTRESS, HOOKED TO PRIMARY CARE NURSE PRACTITIONER, KEPT RESTED AND COMFORTABLE. WILL CONTINUE TO MONITOR.
--- NOTE | 2020-03-04 13:50 | NUR ---
SPOKED TO SURFACE ROOM [employer] OPTICIAN [facility] INSURANCE WILL BE ARRANGING HOMEHEALTH CARE.
--- NOTE | 2020-03-04 14:10 | NUR ---
AT BEDSIDE FOR EVAL.
--- NOTE | 2020-03-04 14:35 | NUR ---
SALES AND MARKETING PROFESSIONAL AT BEDSIDE FOR XRAY.
--- NOTE | 2020-03-04 14:42 | NUR ---
IV LINE ESTABLISHED BLOOD DRAWN AND SENT TO LAB.
[2020-03-04] MEDS ORDERED: IV NS 0.9% 1,000 ML BAG IV ONE (15:00)
[2020-03-04] MEDS ORDERED: LOSA100T31 PO (15:04)
[2020-03-04] MEDS ORDERED: WARF2.5T85 PO (15:04)
[2020-03-04] MEDS ORDERED: DILT300T11 PO (15:04)
[2020-03-04] MEDS ORDERED: METO5TAB7 PO (15:04)
[2020-03-04] MEDS ORDERED: FURO-144 PO (15:04)
--- NOTE | 2020-03-04 15:08 | NUR ---
CALLED LAB FOR BLOOD SPECIMEN GREETING CARD MAKER.
[2020-03-04] MEDS ORDERED: DILTIAZEM HCL 25 MG IV ONE (15:20)
[2020-03-04 15:22] LABS: HEMATOCRIT 26 % (39-51); HEMOGLOBIN 8.7 g/dL (13.5-17.5); LYMPHOCYTES # (AUTO) 0.2 /CMM (0.8-4.8); LYMPHOCYTES % (AUTO) 1.9 % (20.0-44.0); MEAN CORPUSCULAR HGB CONC 33 g/dl (31.0-36.0); MEAN CORPUSCULAR VOLUME 94 fL (80-96); MONOCYTES # (AUTO) 0.2 /CMM (0.1-1.30); MONOCYTES % (AUTO) 2.1 % (2.0-12.0); NEUTROPHILS # (AUTO) 8.7 /CMM (1.8-8.9); PLATELET COUNT (AUTO) 194 /CMM (150-450); RED BLOOD CELL COUNT(AUTO) 2.77 MIL/uL (4.5-6.0); WHITE BLOOD COUNT (AUTO) 9.1 K/uL (4.3-11.0)
[2020-03-04] MEDS ORDERED: DILTIAZEM HCL 25 MG IV IV ONE (15:30)
[2020-03-04 15:33] LABS: CALCIUM, SERUM 8.9 mg/dL (8.5-10.1); CREATININE 0.9 mg/dL (0.6-1.3); POTASSIUM 4.8 mmol/L (3.5-5.1)
[2020-03-04 15:39] LABS: BILIRUBIN,DIRECT 0.3 mg/dL (0.0-0.2); BILIRUBIN,TOTAL 0.6 mg/dL (0.2-1.0); TOTAL PROTEIN, SERUM 5.2 g/dL (6.4-8.2)
[2020-03-04] MEDS ORDERED: PIPERACILLIN /TAZOBACTAM 3.375 G in IV D5W 50 ML IV ONE (16:00)
[2020-03-04] MEDS ORDERED: MAGNESIUM HYDROXIDE 30 ML UDC PO PRN (19:00)
[2020-03-04] MEDS ORDERED: ONDANSETRON HCL/PF 4 MG/2 ML VIAL IVP PRN (19:00)
[2020-03-04] MEDS ORDERED: ZOLPIDEM TARTRATE 5 MG TABLET PO PRN (19:00)
[2020-03-04] MEDS ORDERED: Z GUARD REMEDY 2 OZ OINT TP PRN (19:00)
[2020-03-04] MEDS ORDERED: DEXTROSE 50%-WATER 50 ML DISP.SYRIN IV PRN (19:00)
[2020-03-04] MEDS ORDERED: GUAIFENESIN/D-METHORPHAN HB 5 ML UDC PO PRN (19:00)
--- NOTE | 2020-03-04 19:12 | NUR ---
REPORT GIVEN TO ROBERT GARCIA FOR JEANNA.
[2020-03-04] MEDS ORDERED: GUAIFENESIN LA 600 MG TABLET.SA PO ONE ×2 (21:00→21:37)
[2020-03-04] MEDS ORDERED: HYDROCORTISONE SOD SUCCINATE 100 MG/2 ML VIAL IV ONE (21:00)
[2020-03-04] MEDS ORDERED: HYDROCORTISONE SOD SUCCINATE 100 MG/2 ML VIAL ONE (21:36)
[2020-03-04] MEDS ORDERED: LEVOFLOXACIN 750 MG /D5W 150ML 150 ML IV ONE (21:36)
[2020-03-04] MEDS ORDERED: DILTIAZEM HCL CD 180 MG ONE (21:37)
[2020-03-04] MEDS ORDERED: APIXABAN 2.5 MG TABLET ONE (21:45)
[2020-03-04] MEDS: APIXABAN 2.5 MG TABLET PO SCH (21:50)
[2020-03-04] MEDS: DILTIAZEM HCL CD 180 MG PO SCH (21:50)
[2020-03-04] MEDS: BLOOD SUGAR DIAGNOSTIC 1 EACH STRIP IN SCH (21:52)
[2020-03-04] MEDS ORDERED: LEVOFLOXACIN 750 MG /D5W 150ML 750 MG in PREMIX 1 EA IV SCH (22:00)
--- NOTE | 2020-03-04 22:00 | NUR ---
PT IN [facility], AWAKE ALERT ORIENTED X4, VSS NO COMPLAINT OF PAIN OR DISCOMFORT AT THE MOMENT, URINAL PROVIDED, NIGHT TIME MEDS GIVEN
--- NOTE | 2020-03-05 00:35 | NUR ---
WARM BLANKET PROVIDED, PT IN BED COMFORTABLE NO PAIN OR DISCOMFORT
[2020-03-05] MEDS ORDERED: HYDROCODONE/APAP 5/325MG TABLET ONE ×2 (03:13→07:58)
[2020-03-05] MEDS: HYDROCODONE/APAP 5/325MG TABLET PO PRN ×2 (03:22→08:00)
[2020-03-05] MEDS ORDERED: LORAZEPAM INJ 2 MG/ML VIAL ONE ×2 (04:00→23:49)
--- NOTE | 2020-03-05 04:00 | NUR ---
PT COMPLAINING OF HARD TIME BREATHING, SATING 100% ON 5L NC, ORDERS RECEIVED AND CARRIED OUT
[2020-03-05] MEDS: LORAZEPAM INJ 2 MG/ML VIAL IV PRN ×2 (04:02→23:56)
[2020-03-05 05:26] LABS: BASOPHILS % (AUTO) 0.3 % (0.0-2.0); HEMATOCRIT 25 % (39-51); HEMOGLOBIN 8.1 g/dL (13.5-17.5); LYMPHOCYTES # (AUTO) 0.2 /CMM (0.8-4.8); LYMPHOCYTES % (AUTO) 2.4 % (20.0-44.0); MEAN CORPUSCULAR HGB CONC 33 g/dl (31.0-36.0); MEAN CORPUSCULAR VOLUME 95 fL (80-96); MONOCYTES # (AUTO) 0.2 /CMM (0.1-1.30); MONOCYTES % (AUTO) 1.6 % (2.0-12.0); NEUTROPHILS # (AUTO) 9.1 /CMM (1.8-8.9); NEUTROPHILS % (AUTO) 95.7 % (43.0-81.0); PLATELET COUNT (AUTO) 129 /CMM (150-450); WHITE BLOOD COUNT (AUTO) 9.5 K/uL (4.3-11.0)
[2020-03-05 05:42] LABS: CALCIUM, SERUM 8.5 mg/dL (8.5-10.1); CREATININE 0.9 mg/dL (0.6-1.3); MAGNESIUM 2.3 mg/dL (1.8-2.4); PHOSPHORUS 4.5 mg/dL (2.5-4.9); POTASSIUM 4.6 mmol/L (3.5-5.1)
--- NOTE | 2020-03-05 07:06 | NUR ---
RECEIVED REPORT FROM ROBERT GARCIA. PT IS ASLEEP ON BED EASILY AROUSABLE, NOT IN RESPIRATORY DISTRESS, VS STABLE, KEPT RESTED AND COMFORTABLE. AWAITING ROOM FOR TRANSFER.
[2020-03-05] MEDS ORDERED: ASPIRIN 81 MG TAB.CHEW ONE (07:58)
[2020-03-05] MEDS ORDERED: DILTIAZEM HCL CD 120 MG ONE (07:58)
[2020-03-05] MEDS: BLOOD SUGAR DIAGNOSTIC 1 EACH STRIP IN SCH ×4 (08:06→22:22)
[2020-03-05] MEDS: ASPIRIN 81 MG TAB.CHEW PO SCH (08:07)
[2020-03-05] MEDS: DILTIAZEM HCL CD 180 MG PO SCH (08:07)
[2020-03-05] MEDS: APIXABAN 2.5 MG TABLET PO SCH (09:35)
[2020-03-05] MEDS ORDERED: APIXABAN 2.5 MG TABLET PO SCH (17:00)
[2020-03-05] MEDS: CEFEPIME 2 GM in IV D5W 100 ML IV SCH (21:15)
--- NOTE | 2020-03-05 22:18 | NUR ---
PT REMAINS ON DRY MOP MAKER AND PULSE OX. RESTING COMFORTABLY.
[2020-03-05] MEDS ORDERED: MISCELLANEOUS MED 1 EA EA XX ONE (23:30)
--- NOTE | 2020-03-06 00:31 | NUR ---
PT REQUESTING FOR BLANKETS.
--- NOTE | 2020-03-06 04:03 | NUR ---
Meghan brooks in [facility] - 03/06/20 at 0403 by TRI GUILLERMO CARRILLO.
--- NOTE | 2020-03-06 04:04 | NUR ---
PT NOTED ASLEEP, REMAINS ON MONITOR AND PULSE OX. VSS.
[2020-03-06 04:42] LABS: CALCIUM, SERUM 8.3 mg/dL (8.5-10.1); CREATININE 0.9 mg/dL (0.6-1.3); MAGNESIUM 2.4 mg/dL (1.8-2.4); PHOSPHORUS 3.9 mg/dL (2.5-4.9); POTASSIUM 4.7 mmol/L (3.5-5.1)
[2020-03-06 04:43] LABS: EOSINOPHILS % (AUTO) 0.1 % (0.0-6.0); HEMATOCRIT 26 % (39-51); HEMOGLOBIN 8.6 g/dL (13.5-17.5); LYMPHOCYTES # (AUTO) 0.3 /CMM (0.8-4.8); LYMPHOCYTES % (AUTO) 4.9 % (20.0-44.0); MEAN CORPUSCULAR HGB CONC 33 g/dl (31.0-36.0); MEAN CORPUSCULAR VOLUME 95 fL (80-96); MONOCYTES # (AUTO) 0.2 /CMM (0.1-1.30); MONOCYTES % (AUTO) 3.5 % (2.0-12.0); NEUTROPHILS # (AUTO) 5.9 /CMM (1.8-8.9); NEUTROPHILS % (AUTO) 91.5 % (43.0-81.0); PLATELET COUNT (AUTO) 137 /CMM (150-450); WHITE BLOOD COUNT (AUTO) 6.4 K/uL (4.3-11.0)
[2020-03-06 04:53] LABS: IRON, SERUM 162 ug/dl (50-175); TOTAL IRON BINDING CAPACITY 185 ug/dl (250-450)
[2020-03-06 05:16] LABS: FERRITIN 577 ng/mL (8-388)
[2020-03-06] MEDS: CEFEPIME 2 GM in IV D5W 100 ML IV SCH ×3 (05:20→23:02)
--- NOTE | 2020-03-06 05:24 | NUR ---
PT REPOSITIONED, PROVIDED WITH BLAKETS, VSS.
[2020-03-06] MEDS ORDERED: HYDROCODONE/APAP 5/325MG TABLET ONE (07:51)
[2020-03-06] MEDS ORDERED: ASPIRIN 81 MG TAB.CHEW ONE (07:52)
[2020-03-06] MEDS: HYDROCODONE/APAP 5/325MG TABLET PO PRN (07:54)
--- NOTE | 2020-03-06 08:00 | NUR ---
adl care provided. pt was cleaned. kept clean and dry and comfortable./
[2020-03-06] MEDS: BLOOD SUGAR DIAGNOSTIC 1 EACH STRIP IN SCH ×4 (08:30→21:58)
[2020-03-06] MEDS: ASPIRIN 81 MG TAB.CHEW PO SCH (08:34)
[2020-03-06] MEDS: DILTIAZEM HCL CD 180 MG PO SCH (08:34)
[2020-03-06] MEDS: APIXABAN 2.5 MG TABLET PO SCH ×2 (08:34→16:05)
--- NOTE | 2020-03-06 12:10 | NUR ---
covid swab test collected and sent to the lab.
--- NOTE | 2020-03-06 12:12 | NUR ---
room 208-1
--- NOTE | 2020-03-06 13:54 | NUR ---
REPORT GIVEN TO ROBERT SCHULZ FOR JEANNA.
--- NOTE | 2020-03-06 14:28 | NUR ---
transferred to 208
--- NOTE | 2020-03-06 14:29 | NUR ---
PT TRANSPORTED TO UNIT ON GURNEY WITH EMT AND RN AT BEDSIDE W/ ALCS PROTOCOL. NAD NOTED DURING TRANSPORT.
--- NOTE | 2020-03-06 15:00 | NUR ---
TELE ADMISSION RN NOTES PATIENT RECEIVED FROM EMERGENCY DEPARTMENT, VIA GURNEY. ALERT AND ORIENTED X 3. PATIENT ON NASAL CANNULA, 2 LITERS, WITH NO RESPIRATORY DISTRESS NOTED AT THIS TIME. WILL PACE PATIENT ON CONCRETE VIBRATOR OPERATOR. PATIENT SKIN WARM AND DRY TO TOUCH. IV ACCESS INTACT AND PATENT. PATIENT DENIES ANY PAIN OR DISCOMFORT AT THIS TIME. SAFETY PRECAUTIONS IMPLEMENTED WITH BED LOCKED, BILATERAL SIDE RAILS UP, BED ALARM ON, BED IN LOWEST POSITIONS AND CALL LIGHT WITHIN EASY REACH OF PATIENT. WILL CONTINUE TO MONITOR.
[2020-03-06 16:00] VITALS: BP 126/68
[2020-03-06] MEDS: ACETAMINOPHEN 325 MG TABLET PO PRN (16:04)
--- NOTE | 2020-03-06 19:00 | NUR ---
LEARNING OFFICER NOTES PATIENT ALERT AND ORIENTED X 3. ON NASAL CANNULA, 2 LITERS, WITH NO RESPIRATORY DISTRESS NOTED AT THIS TIME. ON CHYRON OPERATOR A-FIB 120'S. PATIENT SKIN KEPT CLEAN, WARM AND DRY TO TOUCH. IV ACCESS INTACT AND PATENT. PATIENT DENIES ANY PAIN OR DISCOMFORT AT THIS TIME. MET ALL OF PATIENT'S NEEDS. SAFETY PRECAUTIONS IMPLEMENTED WITH BED LOCKED, BILATERAL SIDE RAILS UP, BED ALARM ON, BED IN LOWEST POSITIONS AND CALL LIGHT WITHIN EASY REACH OF PATIENT. WILL ENDORSE PLAN OF CARE TO UPCOMING RN.
[2020-03-06 20:00] VITALS: BP 139/62
--- NOTE | 2020-03-06 21:29 | NUR ---
RN NOTE: RECEIVED CALL FROM BRADLEY FROM [facility], THAT THEY ARE UNABLE TO ACCEPT THE PATIENT AT THIS TIME. NO REPRODUCTION ORDER PROCESSOR AVAILABLE AT THIS TIME. WILL ENDORSE TO MORNING STAFF.
[2020-03-06] MEDS: METRONIDAZOLE 500MG/ NS 100ML 500 MG in PREMIX 1 EA IV SCH (21:43)
[2020-03-06] MEDS: INSULIN REGULAR, HUMAN 100 UNIT/ML 3 ML VIAL SQ PRN (21:58)
--- NOTE | 2020-03-06 22:52 | NUR ---
PT COMPLAINED OF UNABLE TO VOID, PAIN ON THE LOWER ABDOMEN. PT VOIDED IN URINAL AND ON THE PAD. BLADDER SCANNED: >881ML, INFORMED CABLE SPLICER APPRENTICE WILFRIDO.
--- NOTE | 2020-03-06 23:30 | NUR ---
UNABLE TO INSERT A HOUSE CATHETER-REGULAR CATHETER, RESISTANCE NOTED. HOUSE COUDE FR16 CATHETER INSERTED BY ROBERT TOBAR, 900 ML YELLOW CLEAR URINE OUTPUT CAME OUT RIGHT AWAY, HOUSE CATH SECURED WITH THE DEVICE, PT TOLERATED THE PROCEDURE.
[2020-03-07] VITALS: BP_SYST 131; BP_SYST 132; BP_DIAS 72; BP_DIAS 79
--- NOTE | 2020-03-07 00:56 | NUR ---
RECEIVED A CALL FROM THE CHARGE NURSE JUANA RE: UNCONTROLLED AFIB 120-162. KEYPUNCH OPERATORS SUPERVISOR WAS CLEANING HIM EARLIER. INFORMED REJECTOR WILFRIDO.
[2020-03-07] MEDS: METRONIDAZOLE 500MG/ NS 100ML 500 MG in PREMIX 1 EA IV SCH ×3 (06:38→21:14)
[2020-03-07] MEDS: BLOOD SUGAR DIAGNOSTIC 1 EACH STRIP IN SCH ×4 (07:13→21:14)
--- NOTE | 2020-03-07 07:13 | NUR ---
blood sugar= 108, no insulin given.
[2020-03-07] MEDS: CEFEPIME 2 GM in IV D5W 100 ML IV SCH ×3 (07:14→22:18)
--- NOTE | 2020-03-07 07:45 | NUR ---
BREAKER TENDER NOTES PATIENT ALERT AND ORIENTED X 2-3 WITH PERIODS OF CONFUSION EASILY REDIRECTED. ON NASAL CANNULA, 5 LITERS, WITH NO RESPIRATORY DISTRESS NOTED AT THIS TIME. ON CARE TEAM COORDINATOR SCHEDULER WITH UNCONTROLLED A-FIB 140'S. PATIENT SKIN CLEAN, WARM AND DRY TO TOUCH. IV ACCESS INTACT AND PATENT. PATIENT DENIES ANY PAIN OR DISCOMFORT AT THIS TIME. SAFETY PRECAUTIONS IMPLEMENTED WITH BED LOCKED, BILATERAL SIDE RAILS UP, BED ALARM ON, BED IN LOWEST POSITIONS AND CALL LIGHT WITHIN EASY REACH OF PATIENT. WILL CONTINUE TO MONITOR PATIENT.
[2020-03-07 08:00] VITALS: BP 140/73
[2020-03-07] MEDS: ASPIRIN 81 MG TAB.CHEW PO SCH (08:30)
[2020-03-07] MEDS: APIXABAN 2.5 MG TABLET PO SCH ×2 (08:31→16:35)
[2020-03-07] MEDS: DILTIAZEM HCL CD 180 MG PO SCH (08:34)
--- NOTE | 2020-03-07 08:40 | NUR ---
WOUND CARE CONSULT: REVIEWED CHART, NURSING DOCUMENTATION AND PHOTOS WHICH INDICATE INCONTINENCE ASSOCIATED SKIN DAMAGE. RECOMMENDATIONS MADE FOR SKIN PROTECTION. DISCUSSED WITH NURSING STAFF. PT TO BE PLACED ON CHRISTOPH ISOFLEX LOW AIRLOSS BED. MD IN AGREEMENT WITH PLAN OF CARE.
[2020-03-07] MEDS: ACETAMINOPHEN 325 MG TABLET PO PRN (09:47)
[2020-03-07] MEDS: GUAIFENESIN LA 600 MG TABLET.SA PO SCH ×2 (15:08→21:14)
[2020-03-07 16:00] VITALS: BP 147/83
--- NOTE | 2020-03-07 19:09 | NUR ---
WINE CELLAR STOCK CLERK NOTES PATIENT ALERT AND ORIENTED X 3. ON NASAL CANNULA, 5 LITERS, WITH NO RESPIRATORY DISTRESS NOTED AT THIS TIME. ON HAZMAT TANKER DRIVER A-FIB 109. PATIENT SKIN KEPT CLEAN, WARM AND DRY TO TOUCH. IV ACCESS INTACT AND PATENT. PATIENT DENIES ANY PAIN OR DISCOMFORT AT THIS TIME. MET ALL OF PATIENT'S NEEDS. SAFETY PRECAUTIONS IMPLEMENTED WITH BED LOCKED, BILATERAL SIDE RAILS UP, BED ALARM ON, BED IN LOWEST POSITIONS AND CALL LIGHT WITHIN EASY REACH OF PATIENT. WILL ENDORSE PLAN OF CARE TO UPCOMING RN.
--- NOTE | 2020-03-07 19:30 | NUR ---
AG SERVICE MANAGER OPENING NOTE RECEIVED PATIENT IN BED. A/OX3, ON OXYGEN 5L/MIN VIA NASAL CANNULA, RESPIRATIONS ARE EVEN AND UNLABORED. NO S/S SOB NOTED,BUT PATIENT IS COMPLAINING OF SOB. INFORMED HIM HIS 02 SATURATION IS GOOD. TRIED TO PROVIDE THERAPEUTIC CONVERSATION BUT PATIENT CONTINUES TO BE ANXIOUS. NO S/S PAIN NOTED. EXTERNAL TELE MONITOR READS UNCONTROLLED AFIB. IN NO APPARENT DISTRESS. IV ACCESS IN RAC#18 PATENT AND SALINE LOCKED. HOUSE CATHETER IS PRESENT, DRAINING TO GRAVITY. BED IS LOW AND LOCKED , HOB ELEVATED IN SEMI FOWLERS, SIDE RIALS UP X3, CALL LIGHT WITHIN REACH, WILL CONTINUE TO MONITOR THROUGHOUT SHIFT.
[2020-03-07 20:00] VITALS: BP 129/89
[2020-03-08] VITALS (10 sets, daily range): BP systolic 79–130; BP diastolic 34–80
[2020-03-08] MEDS: METRONIDAZOLE 500MG/ NS 100ML 500 MG in PREMIX 1 EA IV SCH ×2 (05:03→13:05)
[2020-03-08] MEDS: CEFEPIME 2 GM in IV D5W 100 ML IV SCH ×2 (06:08→12:11)
[2020-03-08] MEDS: BLOOD SUGAR DIAGNOSTIC 1 EACH STRIP IN SCH ×4 (06:51→23:12)
[2020-03-08 07:07] LABS: EOSINOPHILS % (AUTO) 0.4 % (0.0-6.0); HEMATOCRIT 23 % (39-51); HEMOGLOBIN 7.6 g/dL (13.5-17.5); LYMPHOCYTES # (AUTO) 0.4 /CMM (0.8-4.8); LYMPHOCYTES % (AUTO) 10.9 % (20.0-44.0); MEAN CORPUSCULAR HGB CONC 33 g/dl (31.0-36.0); MEAN CORPUSCULAR VOLUME 95 fL (80-96); MONOCYTES # (AUTO) 0.1 /CMM (0.1-1.30); MONOCYTES % (AUTO) 3.7 % (2.0-12.0); PLATELET COUNT (AUTO) 80 /CMM (150-450); RED BLOOD CELL COUNT(AUTO) 2.41 MIL/uL (4.5-6.0); WHITE BLOOD COUNT (AUTO) 3.5 K/uL (4.3-11.0)
--- NOTE | 2020-03-08 07:30 | NUR ---
RN OPENING NOTE RECEIVED PATIENT RESTING IN BED. AWAKE, ALERT AND ORIENTED X 3. NO COMPLAINTS OF PAIN THIS AM. IV ACCESS TO RIGHT AC INTACT AND PATENT. CONTINUES ON O2 5L VIA NC WITH NO S/S OF RESPIRATORY DISTRESS NOTED. CALL LIGHT WITHIN REACH. WILL CONTINUE TO MONITOR.
--- NOTE | 2020-03-08 07:30 | NUR ---
GREEN BUILDING MATERIALS DESIGNER CLOSING NOTE PATIENT RESTING IN BED. A/OX3, ON OXYGEN 5L/MIN VIA NASAL CANNULA, NO RESP DISTRESS. NO PAIN. TELE MONITOR READS UNCONTROLLED AFIB. NO DISTRESS. IV ACCESS MAINTAINED IN RAC#18 . HOUSE CATHETER IS MAINTAINED, CONTINUES DRAINING TO GRAVITY. BED REMAINS LOW AND LOCKED , HOB ELEVATED IN SEMI FOWLERS, SIDE RIALS UP X3, CALL LIGHT WITHIN REACH, WILL ENDORSE TO NEXT SHIFT.
[2020-03-08 07:32] LABS: CALCIUM, SERUM 8.3 mg/dL (8.5-10.1); CREATININE 0.8 mg/dL (0.6-1.3); MAGNESIUM 2.4 mg/dL (1.8-2.4); PHOSPHORUS 2.4 mg/dL (2.5-4.9); POTASSIUM 4.2 mmol/L (3.5-5.1)
[2020-03-08] MEDS: APIXABAN 2.5 MG TABLET PO SCH (09:00)
[2020-03-08] MEDS: ASPIRIN 81 MG TAB.CHEW PO SCH (09:12)
[2020-03-08] MEDS: GUAIFENESIN LA 600 MG TABLET.SA PO SCH ×2 (09:12→23:44)
[2020-03-08] MEDS: DILTIAZEM HCL CD 180 MG PO SCH (09:13)
[2020-03-08 12:23] LABS: BAND % (MANUAL) 1 % (0.0-5.0); LYMPHOCYTES % (MANUAL) 9 % (16-48); MONOCYTES % (MANUAL) 5 % (0-11.0); NEUTROPHILS % (MANUAL) 85 (42-76)
[2020-03-08] MEDS ORDERED: NEUTRA PHOS 1 POWD.PACKET PO ONE (13:00)
--- NOTE | 2020-03-08 14:06 | NUR ---
CAR CLEANING SUPERVISOR NOTES PT IN BED, AWAKE, ALERT AND ABLE TO MAKE NEEDS KNOWN, ON O2 AT 5LPM VIA N/C, O2 SAT OF 93%, ASSISTED WITH MEALS, SEEN AND EXAMINED BY DR. PANG.
--- NOTE | 2020-03-08 15:05 | NUR ---
SS consult requested for wounds present at admission from home [[address] [facility] [address]; [phone]]. Per MD note, the pt. has hx. of newly dx NSC lung cancer, atrial fibrillation with s/p pacemaker (all from jan 2020 admission), hypertension who represents the emergency department complaining of shortness of breath. Per wound consult note, the pt. presents with incontinence associated skin damage. SW assessed pt. over the phone and pt. is alert & oriented x 3. Pt.'s mood is WNL. Pt. denies SI/HI and denies hallucinations. Pt. stated that about 6 months ago he began to experience SOB and has not been able to care for self as he was prior to 6 months ago. Pt. stated he lives at [[address] [facility] [address]; [phone]] with a roommate, Ramirez Cooper [phone]. Per pt. roommate does not help care for pt. Per pt., he does not have any family in the area. Per pt. closest relative lives in [facility] and is not in communication with them. SW submitted a Protective Services Report for self-neglect (Intake ID [id number]). SW will be available as needed. HOMAR placed the following resources in pt.s' discharge packet: ABUSE PREVENTION: ELDER ABUSE HOTLINE (16/09) ADULT PROTECTIVE SERVICES HOTLINE LONG-TERM CARE [facility] ARE[facility] ON AGING (HOTLINE) ADULT DAY HEALTH CARE CARE CENTERS: Private pay or Medi-delmar funded adult day care [place] [facility] , [facility] , [facility] , [facility] Care , [facility] , [facility] , [facility] , [facility] Adult [place] [facility] HEALTH ASSOCIATIONS: AARP www.aarp.org ALS Association (ask for Rand) www.als.org Malaysian Diabetes Association www.diabetes.org Malaysian Heart Association www.heart.org Malaysian Lung Association www.lungusa.org Malaysian Parkinson Disease Association www.apdaparkinson.org Malaysian Kaufman , www.redcross.org Arthritis Foundation www.arthritis.org Crohns & Colitis Foundation of Malaysian www.ccfa.org/chapters/kishanangeoswaldo National Multiple Sclerosis Society www.nationalmssociety.org Myasthenia Gravis Foundation www.myasthenia-ca.org National Stroke Association www.stroke.org CONSERVATORSHIP & GUARDIANSHIP: AARP Juanita Okeefe Legal Services Center for Health Care Rights [facility] Information and Referral Heel Seat [facility]: [facility] Bar Referral Service [facility] Legal Services Office of the Public Guardian [place] EYESIGHT DISORDER RESOURCES: Malaysian Macular Degeneration Foundation Bradella Paoli www.wadeinstitute.org GRIEF AND BEREAVEMENT RESOURCES: [facility] , [facility] THE HOPE Connection , [facility] , [place] HELP AT HOME CAREGIVER SUPPORT: In Home Support Services (Must have Medi-Delmar to be eligible) *Ask for a list of agencies that provide services to assist with care in the home. Local Senior Centers also have listings of care providers. HOME SAFETY MODIFICATIONS AND EQUIPMENT: Senior centers have additional referrals. [place] Mavatar and iBid2Save Investment Dept. Handyworker Program (low income) or Visit http://hcidla.[facility].org/mmh-gcsxod-kt for more information National Seating and Mobility and/or ; Forever Active www.foreverPingwyn.Genieo Innovation Stay Home Safe www.Stayhomesafe.Genieo Innovation LIFE ALERT RESPONSE SYSTEM: ZenSuite Lifeline Services 829-260-6154 www. G10 Entertainment Life Alert 643-829-3062 www.lifeSwapboxrtSearchMan SEO Life Station 452-457-4279 www.Scribe Softwareation.Genieo Innovation Safe Return 917-871-0657 www.alz.or/safereturn Cell Phones for Seniors www.Fly me to the Moon MEALS AND FOOD PROGRAMS: [place] Meals on Wheels [phone] [place] Meals on Wheels [phone] [facility] [phone] [place] to the Homebound [phone] [place] to the Homebound [phone] [facility] to the Homebound [phone] [facility] to the Homebound [phone] Randell Osorio [phone] Joce Arya [place] [phone] ONE Generation [phone] [facility] [phone] [facility] [phone] Meals on Wheels [phone] For all ages: $6.85/ meal w side. Delivered M-F from 10 am-1pm. Application and payment is done over the phone. Frozen meals available for weekends. Emergency Food Coalunited states air force [employer] [employer] [facility] clinic [phone] [facility] Job Putter Up And Ticket Preparer [phone] [facility] [phone] Quinton Funez Outreach- Brown bag lunches [phone] [facility] [phone] MEAL/GROCERY DELIVERY PROGRAMS: [facility] Gour[facility] health system Meals [phone]- [facility] [phone]- [facility] Magic Kitchen [phone] Moms Meals [phone] (ask Sheridan for Discount Select grocery stores may provide delivery. MEDICAL INSURANCE SUPPORT SERVICES: Center for Health Care Rights [phone] Health Insurance Counseling/Advocacy Programs (HICAP)-Must have Medicare. Offers counseling for Medi-Delmar eligibility [phone] [facility] of Public Job Putter Up And Ticket Preparer 760-127-7158 www.lifepoint hospitals.ca.gov Medicare 744-118-5348 www.socialsecurity.org Social Security [phone] SENIOR ACTIVITY PROGRAMS: *Contact a local senior center, adult school, recreation facility or community college for education, fitness, recreation, and social programs. Aquatic Therapy and Adapted Exercise programs through [facility] [phone] Encore at [facility] [phone] www.[facility]/encore H2U- Senior Friends [phone] [place] Senior Programs [phone] www.oasisnet.org Suddenly 65 www.qrktmvea55.com SENIOR CENTERS: [facility] [phone] [place] [place] [facility]ishes[facility] [phone] [facility] [phone] [facility] [phone] [facility] [phone] [facility] [phone] [facility] [phone] [facility] [phone] One Generation, [facility] [phone] [facility] [phone] [facility] [phone] [facility] [phone] [facility] [phone] TRANSPORTATION: Local [facility] may have applications for transportation programs and additional resources. ACCESS Services [phone] Transportation for seniors and disabled persons 7 days a week requiring 254 hr. advance reservation. Must apply and register for program kayley eligible. [employer] [phone] or [phone] Transportation for seniors and persons with ADA card/metro disabled card in the [facility]. M-F only. Must register for services. ONE GENERATION [phone] Serves 65 years + in conjunction with CoContest program. Must be registered with both programs. A to B Transport [phone] Provides wheelchair/gurney van service. Adult Medical Transport [phone] Accepts [facility] with prior authorization. Care Van [phone] Provides wheelchair Transport. [facility] Wide Transportation [phone] Provides gurney service [facility] [phone] Gurney Transport. [facility] Transportation [phone] wheelchair & gurney transport [facility] Transportation [phone] wheelchair & gurney transport [place] Non-Emergency Transport [phone] wheelchair & gurney transport [facility] Living [place] [phone] Short Term Transportation primarily for adults with disabilities on social security income. Nominal fee may apply and a reservation is required. [employer] [phone] or [phone] H[facility]l [phone] [place] [address] Referral Services -[phone] For additional programs & services
[2020-03-08] MEDS: ACETYLCYSTEINE 10% SOLN 400 MG/4 ML VIAL NEB SCH (15:30)
[2020-03-08] MEDS: ACETAMINOPHEN 325 MG TABLET PO PRN (18:52)
--- NOTE | 2020-03-08 19:03 | NUR ---
RN CLOSING NOTE PATIENT RESTING IN BED. ALERT AND ORIENTED X 3. NO COMPLAINTS OF PAIN THIS SHIFT. CONTINUES ON O2 5L VIA NC WITH NO S/S OF RESPIRATORY DISTRESS. PATIENT NOTED WITH MUCOUS IN ORAL CAVITY AND SUCTION PERFORMED WITH PATIENT TOLERATING WELL. IV #18 TO RIGHT AC INTACT AND PATENT. CONTINUES ON IV ABX. CALL LIGHT WITHIN REACH. ASPIRATION, FALLS AND SAFETY PRECAUTIONS MAINTAINED.
--- NOTE | 2020-03-08 19:22 | NUR ---
CAR HOSTLER NOTES PT HAD A BM ON THE COMMODE ASSISTED BY POULTRY PATHOLOGIST, COMING BACK TO BED, NOTED PT DESATURATING, O2 SAT ON THE 70'S, PLACED PT ON 15L NON REBREATHER MASK, RT AT BEDSIDE, DR. POLY VELASQUEZ, ORDERED TO PUT PT ON HIGH FLOW O2, NOTED AND CARRIED OUT.
--- NOTE | 2020-03-08 19:35 | NUR ---
TELE/RN OPENING NOTES: RECEIVED PT IN BED, LOOKING PALE. SATURATING AT 28S, ON 5L OXYGEN VIA NC, LABORED BREATHING NOTED, IN ACUTE DISTRESS. RT AT BEDSIDE, PLACE THE PATIENT ON NRB 15L FOR NOW, KI PANG CONTACTED BY DAY SHIFT RN KI CARNEY ORDERED FOR HIGH FLOW. DR. ENRIQUE, CHINESE MEDICINE PRACTITIONER DOCTOR MADE AWARE AND ORDERED STAT ABG.
--- NOTE | 2020-03-08 19:39 | NUR ---
TELE/RN NOTES: PER DAY SHIFT REPORT FROM ROBERT CARNEY, PT IS A/OX3 VERBALLY RESPONSIVE. PT APPEARS TO BE LETHARGIC AND VERY WEAK AT THIS TIME. UNABLE TO ANSWER, STERNAL RUB DONE TO KEEP PT AWAKE. HARD TO AROUSE. WILL CONTINUE TO MONITOR PT CLOSELY.
--- NOTE | 2020-03-08 19:46 | NUR ---
TELE/RN NOTES: RECEIVED ABG RESULTS AND RELAYED TO DR. ENRIQUE, PCO2 IS 120. PER ICU AND RTS, SUGGESTING PT TO BE INTUBATED. DR. ENRIQUE ORDERED OK TO INTUBATE AND HAVE PT TRANSFER TO ICU.
[2020-03-08 19:47] LABS: ABG BASE EXCESS 10.1 mmol/L; ABG OXYGEN SATURATION 95.6 % (92.0-98.5); ABG PCO2 120.1 mmHg (35.0-45.0); ABG PH 7.156 (7.350-7.450); ABG PO2 102.4 mmHg (75.0-100.0); AaDO2 490.5 mmHg; COHb 0.1 % (0.5-1.5); MetHb 0.1 % (0.0-1.5); O2Hb 95.4 % (94.0-97.0); SITE, ABG Right Radial; VENT MODE, BG 15LPM NRB
--- NOTE | 2020-03-08 19:50 | NUR ---
TELE/RN NOTES: DR. ENRIQUE ENERGY DIRECTOR, ORDERED FOR PATIENT TO BE INTUBATED PER ABG RESULTS, AND OK TO TRANSFER TO ICU. ICU TEAM AWARE. ER TEAM WILL COME AND INTUBATE PT AT BEDSIDE.
--- NOTE | 2020-03-08 20:00 | NUR ---
TELE/RN NOTES: DR. STONE AND ER NURSE ARRIVED, RT'S STILL AT BEDSIDE. PT STARTED TO APPEAR MORE AWAKE. PER DR. STONE, PT STILL NEEDS TO BE INTUBATED D/T ABG RESULTS. ICU TEAM MADE AWARE. DR. ENRIQUE AWARE. NURSING MJ JO AWARE. WILL MONITOR PT. CLOSELY.
--- NOTE | 2020-03-08 20:15 | NUR ---
TELE/RN NOTES: PT IS INTUBATED, BY DR. STONE. ER NURSE AT BEDSIDE. RTs AT BEDSIDE. TUBE SIZE 7.0, 24CM. RATE 20 PEAK FLOW 60, PEEP 5, TV 500, O2 100%. WILL ORDER ABG AND CHEST XRAY IN AN HOUR.
--- NOTE | 2020-03-08 20:20 | NUR ---
TELE/RN NOTES: PER ICU CHARGE NURSE, THERE ARE NO AVAILABLE BEDS AT THE MOMENT. NURSING NUCLEAR MEDICINE TECH AWARE, AND SAID OKAY TO TRANSFER PT TO [facility] FOR NOW. [facility] MACHINE HEDDLE CLEANER AKHIL GAVE ROOM NUMBER 110-1. WILL MONITOR PT CLOSELY.
--- NOTE | 2020-03-08 20:40 | NUR ---
TELE/RN NOTES: PT. TRANSFERRED TO 110-1 [facility], S/P INTUBATION. REPORT GIVEN TO ROBERT CORDERO AT BEDSIDE. RT AT BEDSIDE DURING THE TRANSFER. PLAN OF CARE ENDORSED TO ROBERT CORDERO.
--- NOTE | 2020-03-08 20:40 | NUR ---
SOLE LEATHER CUTTING MACHINE OPERATOR OVERFLOW NOTES, RECEIVED PATIENT INTUBATED ON MECHANICAL VENTILATOR WITH SETTINGS ETT 24, AC 20, T 500, FIO2 100%, PEEP 5, PATIENT AFIB UNCONTROLLED AT THIS TIME, WILL CONTINUE TO MONITOR CLOSELY.
--- NOTE | 2020-03-08 20:52 | NUR ---
RT RT CALLED IN TO SEE PT DUE TO DESATURATION, ABG DONE WITH CRITICAL RESULTS. DR. DOUGHERTY ORDERED INTUBATION. PT INTUBATED AT 2014 WITH ETT 7.0, 24CM AT LIP. CO2 COLOR CHANGE WITH BILATERAL BREATH SOUNDS AND EQUAL CHEST RISE OBSERVED. DR DOUGHERTY ORDERED VENT SETTINGS OF RATE 20, VT 500, PEEP +5, FIO2 100%. STAT CHEST XRAY ORDERED. AND ABG TO FOLLOW. ETT PATENT AND SECURED PT TRANSPORTED TO [facility] AT 2034. AMBU BAG AT BEDSIDE, VENT PLUGGED IN RED OUTLET WITH ALARMS ON AND AUDIBLE. ETT SECURED. Addendum: 03/08/20 at 2100 by CANDIS RADER RT Amended: Links added.
[2020-03-08] MEDS ORDERED: NOREPINEPHRINE 8 MG in IV NS 0.9% 242 ML IV PRN (21:00)
[2020-03-08] MEDS: PROPOFOL 100 ML IV PRN (21:03)
[2020-03-08 21:16] LABS: ABG BASE EXCESS 7.8 mmol/L; ABG OXYGEN SATURATION 99.5 % (92.0-98.5); ABG PCO2 39.6 mmHg (35.0-45.0); ABG PH 7.516 (7.350-7.450); ABG PO2 449.4 mmHg (75.0-100.0); COHb 0.1 % (0.5-1.5); MetHb 0.2 % (0.0-1.5); O2Hb 99.2 % (94.0-97.0); SITE, ABG Left Radial; VENT MODE, BG AC 20 500 100% +5
--- NOTE | 2020-03-08 21:35 | NUR ---
ACCOUNT EXECUTIVE HEALTHCARE OVF NOTES, RELAYED ABGS RESULTS TO Valentin ENRIQUE, AND HE RELIED WITH ORDERS TO DECREASED THE FIO2, SETTINGS BY RT, DECREASED TO 60% AT THIS TIME, PATIENT WITH O2 SATURATION >97%, WILL CONTINUE TO MONITOR CLOSELY.
[2020-03-08] MEDS: MEROPENEM 500 MG in IV NS 0.9% 50 ML IV SCH (23:09)
[2020-03-08] MEDS: INSULIN REGULAR, HUMAN 100 UNIT/ML 3 ML VIAL SQ PRN (23:13)
[2020-03-09] VITALS (44 sets, daily range): BP systolic 83–142; BP diastolic 53–99
--- NOTE | 2020-03-09 00:20 | NUR ---
notified dr. batista about patient heart rythm is afib uncontrolled between 120-150s. jose r is on levophed blood pressure support and requested to switch to neosynephine due to levo causes heart rate to increase. received orders to switch from levo to marco antonio and also start patient on amiodarone bolus then drip. readback orders and carried out. will continue to monitor.
[2020-03-09] MEDS ORDERED: AMIODARONE 150 MG in IV D5W 100 ML IV ONE (01:00)
[2020-03-09] MEDS ORDERED: AMIODARONE 150 MG/3 ML VIAL IV ONE (01:11)
[2020-03-09] MEDS ORDERED: PHENYLEPHRINE 10 MG/ML VIAL ONE (01:13)
[2020-03-09] MEDS: PHENYLEPHRINE 50 MG in IV NS 0.9% 245 ML IV PRN ×4 (01:59→23:58)
[2020-03-09] MEDS: AMIODARONE 450 MG in IV D5W 250 ML IV PRN ×2 (02:00→08:05)
--- NOTE | 2020-03-09 02:00 | NUR ---
ICU OVF RN NOTES, AMIODARONE DRIP STARTED AT THIS TIME, WILL INFUSE PER PROTOCOL, 1MG/HR X6HRS, AND WILL FOLLOW WITH 0.5MGX18 FOR A TOTAL OF 24HRS.
[2020-03-09] MEDS: PROPOFOL 100 ML IV PRN ×2 (03:56→09:53)
--- NOTE | 2020-03-09 07:25 | NUR ---
RN OPENING NOTE PATIENT RECEIVED IN SEMI-FOWLERS POSITION, SEDATED, CURRENTLY ON PROPOFOL DRIP AT 35 MCG/MIN. BILATERAL RESTRAINTS IN PLACE. POSITIVE CIRCULATION NOTED IN BILATERAL UPPER EXTREMITIES. HOUSE CATHETER INTACT WITH VISIBLE URINE OUTPUT. NG TUBE INTACT AND PATENT. AUDIBLE PLACEMENT HEARD WHEN AIR BOLUS PERFORMED. PATIENT CURRENTLY ON NEOSYNEPHRINE VIA IV AT 1.4 MG/MIN. PATIENT TOLERATING WELL. LEFT UPPER ARM MIDLINE INTACT AND PATENT. DRESSING CLEAN AND DRY. R AC #18 NEMO INTACT AND PATENT. PATIENT CURRENTLY ON MECHANICAL VENTILATION. VENT SETTINGS ARE tv = 500, PEEP = 5, %O2 = 50, RATE = 20. PATIENT TOLERATING WELL. SAFET PRECUATIONS IMPLEMENTED. SIDE RAILS UP X2, CALL LIGHT WITHIN REACH, AND BED LOCKED IN LOWEST POSITION. WILL CONTINUE TO MONITOR AND PROVIDE CARE THROUGHOUT SHIFT.
--- NOTE | 2020-03-09 07:40 | NUR ---
ICU OVF CLOSING NOTES, PATIENT IN BED, INTUBATED TOLERATED SETTINGS WELL, AFIB CONTROLLED NOW, ON AMIO DRIP NEOSYNEPHRINE DRI TO MAINTAIN SBP >90 AND DIPRIVAN FOR SEDATION INFUSING PER PROTOCOL, NO ACUTE DISTRESS NOTED THROUGHOUT THE NIGHT, KEEPING 100% O2 MOSTLY, ENDORSED TO LIANG, RN FOR CONTINUATION OF CARE.
[2020-03-09] MEDS: ACETYLCYSTEINE 10% SOLN 400 MG/4 ML VIAL NEB SCH ×2 (07:51→17:02)
[2020-03-09] MEDS: BLOOD SUGAR DIAGNOSTIC 1 EACH STRIP IN SCH ×4 (08:29→22:29)
[2020-03-09] MEDS: DILTIAZEM HCL CD 180 MG PO SCH (09:00)
[2020-03-09] MEDS: GUAIFENESIN LA 600 MG TABLET.SA PO SCH (09:56)
[2020-03-09] MEDS: ASPIRIN 81 MG TAB.CHEW PO SCH (09:56)
[2020-03-09] MEDS: HYDROCORTISONE SOD SUCCINATE 100 MG/2 ML VIAL IV SCH ×3 (10:09→21:57)
[2020-03-09 10:32] LABS: BASOPHILS % (AUTO) 0.5 % (0.0-2.0); EOSINOPHILS % (AUTO) 0.3 % (0.0-6.0); HEMATOCRIT 21 % (39-51); LYMPHOCYTES # (AUTO) 0.7 /CMM (0.8-4.8); LYMPHOCYTES % (AUTO) 26.4 % (20.0-44.0); MEAN CORPUSCULAR HGB CONC 33 g/dl (31.0-36.0); MEAN CORPUSCULAR VOLUME 95 fL (80-96); MONOCYTES # (AUTO) 0.1 /CMM (0.1-1.30); MONOCYTES % (AUTO) 3.5 % (2.0-12.0); NEUTROPHILS # (AUTO) 1.9 /CMM (1.8-8.9); NEUTROPHILS % (AUTO) 69.3 % (43.0-81.0); PLATELET COUNT (AUTO) 64 /CMM (150-450); RED BLOOD CELL COUNT(AUTO) 2.18 MIL/uL (4.5-6.0); WHITE BLOOD COUNT (AUTO) 2.8 K/uL (4.3-11.0)
[2020-03-09 10:49] LABS: CALCIUM, SERUM 8.6 mg/dL (8.5-10.1); CREATININE 1.2 mg/dL (0.6-1.3); MAGNESIUM 2.3 mg/dL (1.8-2.4); PHOSPHORUS 1.6 mg/dL (2.5-4.9); POTASSIUM 4.1 mmol/L (3.5-5.1)
[2020-03-09 10:57] LABS: HEMOGLOBIN 6.9 g/dL (13.5-17.5)
[2020-03-09 11:47] LABS: LYMPHOCYTES % (MANUAL) 25 % (16-48); MONOCYTES % (MANUAL) 4 % (0-11.0); NEUTROPHILS % (MANUAL) 71 (42-76)
[2020-03-09] MEDS ORDERED: JEVITY 1.2 CAL 1,000 ML BOTTLE GT PRN (12:30)
[2020-03-09] MEDS: INSULIN REGULAR, HUMAN 100 UNIT/ML 3 ML VIAL SQ PRN ×3 (12:52→22:31)
[2020-03-09] MEDS: IV D5/ 0.9% NACL 1,000 ML IV PRN (12:57)
[2020-03-09] MEDS ORDERED: NEUTRA PHOS 1 POWD.PACKET NG ONE (17:00)
--- NOTE | 2020-03-09 17:55 | NUR ---
Transferred to room 263, accoring to protocol, report given to RN for JEANNA
--- NOTE | 2020-03-09 18:05 | NUR ---
RN NOTES PATIENT TRANSFERRED FROM [facility], SEDATED, NO ACUTE RESPIRATORY DISTRESS, ON BEDSIDE MONITOR SHOWS AFIB, BP 145/86, INFUSING NORSYNEPHRINE 1.3 MCG, AND DIPRIVAN 35MCG/KG/HR, D5NS AT 80 ML/HR ON RIGHT UPPER PICC LINE,INFUSING WELL. HOUES DRAINING PER GRAVITY, NG TUBE INTACT, AND CLAMPED. KEEP HOB ELEVATED FOR ASPIRATION PRECAUTION. WILL MONITORING.
[2020-03-09] MEDS: PROPOFOL 10MG/ML 50ML 50 ML IV PRN ×3 (18:08→23:58)
--- NOTE | 2020-03-09 18:30 | NUR ---
RN NOTES PATIENT STABLE NO ACUTE DISTRESS, TITRATED NORSYNEPHRINE 1.2 PER PROTOCOL. NO ACUTE RESPIRATORY DISTRESS. ASSIST TURN AND REPOSTION Q 2HR. BED IS LACKED, SIDE RAILS UP X3. ENDORSED ONCOMING NURSE FOLLOW PLAN OF CARE.
--- NOTE | 2020-03-09 19:15 | NUR ---
RN NOTE RECEIVED PT SEDATED IN SEMI EDWARDS'S POSITION. INTUBATED AND TOLERATING VENT SETTINGS WELL. RESPIRATIONS EVEN AND UNLABORED, NO SIGNS OF PAIN OR DISCOMFORT, NGT PLACEMENT VERIFIED VIA AUSCULTATION AND ASPIRATION OF GASTRIC CONTENTS. VITAL SIGNS STABLE VIA BEDSIDE MONITOR, AFIB WITH PVSC VIA POLARITY TESTER, IV SITE PATENT AND FLUSHED WITHOUT SIGNS OF COMPLICATIONS AT SITES, IV FLUIDS AND DRIPS RUNNING ORDERED, HOUSE CATHETER PATENT AND IN PLACE DRAINING CLEAR YELLOW URINE, RESTRAINTS ON ORDERED FOR SAFETY, PENDING RBCS, SAFETY MEASURES IN PLACE PER PROTOCOL, BED ALARM ON, BED LOCKED AND IN LOW POSITION, SIDE RAILS UP X 2, WILL MONITOR PATIENT
--- NOTE | 2020-03-09 20:15 | NUR ---
RN NOTE CLARIFIED WITH DR. ENRIQUE ( TANK WASHER). KEEP PT NPO EXCEPT FOR MEDS.
[2020-03-09] MEDS: MEROPENEM 500 MG in IV NS 0.9% 50 ML IV SCH (21:57)
[2020-03-09] MEDS ORDERED: GUAIFENESIN 300 MG/15 ML UDC PO PRN (22:00)
[2020-03-09] MEDS: GUAIFENESIN 300 MG/15 ML UDC PO SCH (22:29)
[2020-03-10] VITALS (99 sets, daily range): BP systolic 76–151; BP diastolic 45–94
[2020-03-10] MEDS: IV D5/ 0.9% NACL 1,000 ML IV PRN (01:28)
[2020-03-10] MEDS: GUAIFENESIN 300 MG/15 ML UDC PO SCH ×6 (01:28→21:43)
--- NOTE | 2020-03-10 02:00 | NUR ---
RN NOTE SPOKE TO CHELSEY FROM BLOOD BANK. PRBC STILL NOT AVAILABLE.
[2020-03-10] MEDS: PROPOFOL 10MG/ML 50ML 50 ML IV PRN ×6 (02:35→21:13)
[2020-03-10] MEDS: ACETYLCYSTEINE 10% SOLN 400 MG/4 ML VIAL NEB SCH ×4 (03:36→23:37)
--- NOTE | 2020-03-10 04:00 | NUR ---
RN NOTE COMPLETE BED BATH AND LINEN CHANGE COMPLETED. PT TOLERATED WELL. NGT PLACEMENT VERIFIED VIA AUSCULTATION AND ASPIRATION OF GASTRIC CONTENTS, WILL CONTINUE TO MONITOR PATIENT.
[2020-03-10] MEDS: HYDROCORTISONE SOD SUCCINATE 100 MG/2 ML VIAL IV SCH ×3 (04:59→21:38)
[2020-03-10] MEDS: INSULIN REGULAR, HUMAN 100 UNIT/ML 3 ML VIAL SQ PRN ×2 (05:05→12:29)
[2020-03-10 05:17] LABS: BASOPHILS % (AUTO) 0.1 % (0.0-2.0); HEMATOCRIT 21 % (39-51); HEMOGLOBIN 7.2 g/dL (13.5-17.5); LYMPHOCYTES # (AUTO) 0.5 /CMM (0.8-4.8); LYMPHOCYTES % (AUTO) 16.4 % (20.0-44.0); MEAN CORPUSCULAR HGB CONC 34 g/dl (31.0-36.0); MEAN CORPUSCULAR VOLUME 93 fL (80-96); MONOCYTES # (AUTO) 0.1 /CMM (0.1-1.30); MONOCYTES % (AUTO) 3.9 % (2.0-12.0); NEUTROPHILS # (AUTO) 2.4 /CMM (1.8-8.9); NEUTROPHILS % (AUTO) 79.6 % (43.0-81.0); RED BLOOD CELL COUNT(AUTO) 2.28 MIL/uL (4.5-6.0)
[2020-03-10 05:43] LABS: CALCIUM, SERUM 7.8 mg/dL (8.5-10.1); CREATININE 1.1 mg/dL (0.6-1.3); PHOSPHORUS 2.2 mg/dL (2.5-4.9)
[2020-03-10] MEDS: BLOOD SUGAR DIAGNOSTIC 1 EACH STRIP IN SCH ×3 (05:55→17:22)
[2020-03-10 06:01] LABS: POTASSIUM 2.5 mmol/L (3.5-5.1)
--- NOTE | 2020-03-10 06:02 | NUR ---
RN NOTE RECEIVED ALERT FOR POTASSIUM 2.5. PAGED DR. ENRIQUE ( C WPF DEVELOPER) Addendum: 03/10/20 at 0615 by JULIA VAZQUEZ RN DR. ENRIQUE WITH ORDER TO GIVE KCL 40MEG VIA NGT X 1. ORDER NOTED AND CARRIED OUT.
[2020-03-10 06:28] LABS: PLATELET COUNT (AUTO) 71 /CMM (150-450)
[2020-03-10] MEDS ORDERED: POTASSIUM CHLORIDE 20 MEQ POWDER PACKET GT ONE (06:30)
--- NOTE | 2020-03-10 07:00 | NUR ---
RN NOTE NO ACUTE CHANGES OBSERVED OVERNIGHT. PT SEDATED IN SEMI EDWARDS'S POSITION. INTUBATED AND TOLERATING VENT SETTINGS WELL. RESPIRATIONS EVEN AND UNLABORED, NO SIGNS OF PAIN OR DISCOMFORT, NGT PLACEMENT VERIFIED VIA AUSCULTATION AND ASPIRATION OF GASTRIC CONTENTS. VITAL SIGNS STABLE VIA BEDSIDE MONITOR, AFIB WITH PVSC VIA DRAWING KILN SUPERVISOR, IV SITE PATENT AND FLUSHED WITHOUT SIGNS OF COMPLICATIONS AT SITES, IV FLUIDS AND DRIPS RUNNING ORDERED, HOUSE CATHETER PATENT AND IN PLACE DRAINING CLEAR YELLOW URINE, RESTRAINTS ON ORDERED FOR SAFETY, SAFETY MEASURES IN PLACE PER PROTOCOL, ENDORSED TO AM SHIFT TO FOLLOW UP WITH PENDING ORDER FOR 1 UNIT OF PRBCS
--- NOTE | 2020-03-10 07:07 | NUR ---
RN NOTE FOLLOWED UP WITH BLOOD BANK. THEY STATED THAT BLOOD FOR THIS PATIENT WAS NEVER ORDERED. DOUBLE CHECKED ORDER HISTORY AND NOTED THAT ORDER WAS INDEED PLACED CORRECTLY YESTERDAY BY DR. ARNOLD. NOTIFIED CREDIT SUPPORT COUNSELOR MONTSE WHO SPOKE TO BLOOD BANK. PRBC ORDER FAXED TO BLOOD BANK.
[2020-03-10] MEDS: DILTIAZEM HCL CD 180 MG PO SCH (09:00)
[2020-03-10] MEDS: ASPIRIN 81 MG TAB.CHEW PO SCH (09:05)
[2020-03-10] MEDS: POTASSIUM PHOSPHATE MM 7.5 MMOL in IV NS 0.9% 100 ML IV SCH ×2 (09:06→12:20)
[2020-03-10] MEDS: IV 1/2NS 1000 ML 1,000 ML IV PRN (14:02)
[2020-03-10] MEDS ORDERED: ETOMIDATE 2 MG/ML VIAL IV ONE (16:39)
[2020-03-10] MEDS ORDERED: ROCURONIUM BROMIDE 50 MG/5 ML IV ONE (16:39)
--- NOTE | 2020-03-10 19:15 | NUR ---
RN NOTE Received patient in am, sedated. With ETT to vent, tolerated settings. With NGT intact, clamped. With ROBBIN PICC intact. On Kade 0.4. Rutledge cath intact, noted with nathaly colored urine drained to BSD. SPEEDER OPERATOR restraints for safety. Tolerated 1PRBC transfusion, no adverse reactions noted. 1830: Remained on sedation Diprivan @ 30mcg. FIO2 50% +5. AFib 60's. KEpt clean, warm and dry. Needs attended. Off Kade, please see IV spreadsheet. Turned and repositioned q2. No any significant changes noted.
[2020-03-10] MEDS: MEROPENEM 500 MG in IV NS 0.9% 50 ML IV SCH (21:42)
[2020-03-11] VITALS (36 sets, daily range): BP systolic 91–140; BP diastolic 39–89
[2020-03-11] MEDS: PROPOFOL 10MG/ML 50ML 50 ML IV PRN ×7 (00:12→23:58)
[2020-03-11] MEDS: IV 1/2NS 1000 ML 1,000 ML IV PRN ×2 (00:53→16:26)
[2020-03-11] MEDS: BLOOD SUGAR DIAGNOSTIC 1 EACH STRIP IN SCH ×4 (00:54→18:12)
[2020-03-11] MEDS: GUAIFENESIN 300 MG/15 ML UDC PO SCH ×6 (00:55→21:03)
[2020-03-11] MEDS: HYDROCORTISONE SOD SUCCINATE 100 MG/2 ML VIAL IV SCH ×3 (04:44→21:03)
[2020-03-11 05:29] LABS: BASOPHILS % (AUTO) 0.2 % (0.0-2.0); HEMATOCRIT 25 % (39-51); HEMOGLOBIN 8.3 g/dL (13.5-17.5); LYMPHOCYTES # (AUTO) 0.4 /CMM (0.8-4.8); LYMPHOCYTES % (AUTO) 16.9 % (20.0-44.0); MEAN CORPUSCULAR HGB CONC 33 g/dl (31.0-36.0); MEAN CORPUSCULAR VOLUME 92 fL (80-96); MONOCYTES # (AUTO) 0.1 /CMM (0.1-1.30); MONOCYTES % (AUTO) 5.1 % (2.0-12.0); NEUTROPHILS # (AUTO) 2.1 /CMM (1.8-8.9); NEUTROPHILS % (AUTO) 77.8 % (43.0-81.0); WHITE BLOOD COUNT (AUTO) 2.7 K/uL (4.3-11.0)
[2020-03-11 05:51] LABS: CALCIUM, SERUM 7.6 mg/dL (8.5-10.1); CREATININE 0.9 mg/dL (0.6-1.3); MAGNESIUM 1.9 mg/dL (1.8-2.4); PHOSPHORUS 2.7 mg/dL (2.5-4.9)
[2020-03-11 06:10] LABS: PLATELET COUNT (AUTO) 42 /CMM (150-450)
--- NOTE | 2020-03-11 07:30 | NUR ---
CONE CLASSIFIER TENDER OPENING NOTE PT SEDATED ON VENTILATOR SETTINGS OF ETT 7.0/29, AC 20, TV 500 FIO2 40, AND PEEP 5; NO RESP DISTRESS OR SOB NOTED, PT SPO2 100%. PT HAS LT NGT PATENT, AUSCULTATED FOR PLACEMENT, WITH NO RESIDUALS AND CLAMPED. PT HAS ROBBIN PICC LINE PATENT, INTACT AND NO SIGNS OF INFILTRATION OR INFECTION. PT HOUSE CATH DRAINING ERIBERTO URINE TO GRAVITY. PT HAS SACRAL WOUND COVERED WITH MEPILEX. PT HAS BILATERAL SOFT WRIST RESTRAINTS IN PLACE, CMS INTACT. ALL PT SAFETY PRECAUTIONS IN PLACE. WILL CONTINUE TO MONITOR. NOTIFIED DR JOSUE OR K+ VALUE OF 2.7 TO REPLACE
[2020-03-11 07:41] LABS: POTASSIUM 2.7 mmol/L (3.5-5.1)
[2020-03-11] MEDS: ACETYLCYSTEINE 10% SOLN 400 MG/4 ML VIAL NEB SCH ×3 (08:24→23:30)
[2020-03-11] MEDS: ASPIRIN 81 MG TAB.CHEW PO SCH (09:18)
[2020-03-11] MEDS: DILTIAZEM HCL CD 180 MG PO SCH (09:19)
--- NOTE | 2020-03-11 09:30 | NUR ---
RN NOTE PER DR YUSUF, WEAN PT OFF DIPRIVAN FOR SIMV TRIAL
[2020-03-11] MEDS ORDERED: CEFTRIAXONE 1 G VIAL ONE (10:14)
[2020-03-11] MEDS: POTASSIUM CHLORIDE 20 MEQ POWDER PACKET NG SCH ×3 (10:15→12:39)
--- NOTE | 2020-03-11 10:15 | NUR ---
RN NOTE PT WEANED OFF DIPRIVAN FOR SIMV TRIAL
--- NOTE | 2020-03-11 11:11 | NUR ---
RN NOTE PT IN DISTRESS DURING SIMV TRIAL, RESP OF 48. PT WILL GO BACK ON PREVIOUS VENT SETTINGS AND ON DIPRIVAN 30 MCG/KG/MIN PER DR YUSUF
--- NOTE | 2020-03-11 11:13 | NUR ---
pt. placed back to ac 20, vt 500 ml, fio2 40%, peep +5 due to 48 respirations. rn aware on changes. Addendum: 03/11/20 at 1115 by VALENTINA MONTOYA RT Amended: Links added.
[2020-03-11 12:16] LABS: BAND % (MANUAL) 4 % (0.0-5.0); LYMPHOCYTES % (MANUAL) 15 % (16-48); MONOCYTES % (MANUAL) 4 % (0-11.0); MYELOCYTES % 1 % (0-0); NEUTROPHILS % (MANUAL) 76 (42-76)
[2020-03-11] MEDS ORDERED: POTASSIUM CHLORIDE 20 MEQ POWDER PACKET NG SCH (14:30)
--- NOTE | 2020-03-11 19:00 | NUR ---
PUBLIC ADDRESS TECHNICIAN CLOSING NOTE NO CHANGES TO PT STATUS DURING SHIFT. PT IS STABLE ON ORDERED VENT SETTINGS WITH NO SIGNS OF RESP DISTRESS OR SOB. ALL PT SAFETY PRECAUTIONS IN PLACE. WILL ENDORSE JEANNA TO ONCOMING NURSE
[2020-03-11] MEDS: MEROPENEM 500 MG in IV NS 0.9% 50 ML IV SCH (21:03)
[2020-03-12] VITALS (24 sets, daily range): BP systolic 93–126; BP diastolic 46–81
[2020-03-12] MEDS: GUAIFENESIN 300 MG/15 ML UDC PO SCH ×6 (01:11→21:41)
[2020-03-12] MEDS: BLOOD SUGAR DIAGNOSTIC 1 EACH STRIP IN SCH ×4 (01:11→17:08)
[2020-03-12] MEDS: PROPOFOL 10MG/ML 50ML 50 ML IV PRN ×7 (03:33→20:47)
[2020-03-12] MEDS: IV 1/2NS 1000 ML 1,000 ML IV PRN ×2 (03:34→18:24)
[2020-03-12] MEDS: HYDROCORTISONE SOD SUCCINATE 100 MG/2 ML VIAL IV SCH ×3 (03:45→20:44)
[2020-03-12 06:37] LABS: CALCIUM, SERUM 7.7 mg/dL (8.5-10.1); CREATININE 0.9 mg/dL (0.6-1.3); POTASSIUM 3.3 mmol/L (3.5-5.1)
--- NOTE | 2020-03-12 07:30 | NUR ---
PACS SPECIALIST OPENING NOTE PT SEDATED ON VENTILATOR SETTINGS PER MD ORDER; NO RESP DISTRESS OR SOB NOTED, PT SPO2 95%. PT HAS LT NGT PATENT, AUSCULTATED FOR PLACEMENT, WITH NO 25ML RESIDUALS AND IS ON JEVITY 1.2 10ML/HR. PT HAS ROBBIN PICC LINE PATENT, INTACT AND NO SIGNS OF INFILTRATION OR INFECTION. PT HAS 1/2 NS RUNNING AT 100ML/HR AND DIPRIVAN AT 30 MCG/KG/MIN. PT HOUSE CATH DRAINING CLEAR ERIBERTO URINE TO GRAVITY. PT HAS SACRAL WOUND COVERED WITH MEPILEX. PT HAS BILATERAL SOFT WRIST RESTRAINTS IN PLACE, CMS INTACT. ALL PT SAFETY PRECAUTIONS IN PLACE. WILL CONTINUE TO MONITOR.
[2020-03-12] MEDS: ACETYLCYSTEINE 10% SOLN 400 MG/4 ML VIAL NEB SCH ×3 (08:02→23:56)
[2020-03-12] MEDS: POTASSIUM CL. PREMIX PERIPHER. 50 ML IV SCH ×4 (08:35→13:47)
[2020-03-12] MEDS: DILTIAZEM HCL CD 180 MG PO SCH (09:00)
--- NOTE | 2020-03-12 09:00 | NUR ---
RN NOTE PER JOSIAH DUBON TO INCREASE GTUBE FEEDING TO 30ML/HR
--- NOTE | 2020-03-12 10:00 | NUR ---
RN NOTE GTUBE FEEDING INCREASED TO 20ML/HR, WILL ASSESS PT
[2020-03-12] MEDS ORDERED: JEVITY 1.2 CAL 1,000 ML BOTTLE GT SCH (13:00)
--- NOTE | 2020-03-12 13:00 | NUR ---
RN NOTE GTUBE RESIDUALS OF 25ML. WILL NOW INCREASE GTUBE FEEDING TO 30ML/HR
--- NOTE | 2020-03-12 15:00 | NUR ---
RN NOTE PT TOLERATING GTUBE FEED OF 30 ML/HR WELL, NO RESIDUALS
[2020-03-12] MEDS: PROSOURCE / PROSTAT (PYXIS) 30 ML UDC GT SCH (17:00)
[2020-03-12] MEDS: INSULIN REGULAR, HUMAN 100 UNIT/ML 3 ML VIAL SQ PRN (17:09)
--- NOTE | 2020-03-12 19:00 | NUR ---
RN NOTE NO CHANGES TO PT DURING SHIFT, PT IS STABLE, NO RESP DISTRESS OR SOB NOTED. PT ON 1/2 NS @ 100ML/HR AND DIPRIVAN @ 35 MCG/KG/MIN. ALL PT SAFETY MEASURES IN PLACE. WILL ENDORSE JEANNA TO ONCOMING NURSE
--- NOTE | 2020-03-12 19:05 | NUR ---
RECEIVED PT ON BED SEDATED ON ETT/VENT SETTING PER MD SPO2 98% NO SIGN AND SYMPTOMS OF RESPIRATORY DISTRESS NO PAIN NOTED, TELEMONITOR READS CONTROLLED AFIB HR 90 WITH OCCASIONAL V PACING, PT HAVE LEFT CHEST WALL PACE MAKER HAVE LEFT NARES NGTUBE PALCEMENT WAS CHECKED NO RESIDUAL WITH ONGOIGN JEVITY @ 30ML/HR TOLERATING WELL, PT HAVE ROBBIN MIDLINE WITH ONGOING 1/2 NS @ 100ML/HR AND DIPRIVAN @ 35 MCG/KG/MIN INFUSING WELL, HAVE BILATERAL SOFT RESTRAINT CIRCULATION WAS CHECKED, BED ON LWOEST POSITION AND LOCKED SIDE RAIL UP X2 WILL CONT TO MONITOR PT IS NEGATIVE COVID
[2020-03-12] MEDS: MEROPENEM 500 MG in IV NS 0.9% 50 ML IV SCH (20:44)
[2020-03-12 20:48] LABS: BASOPHILS % (AUTO) 0.4 % (0.0-2.0); EOSINOPHILS % (AUTO) 0.1 % (0.0-6.0); HEMATOCRIT 29 % (39-51); HEMOGLOBIN 9.6 g/dL (13.5-17.5); LYMPHOCYTES # (AUTO) 0.5 /CMM (0.8-4.8); LYMPHOCYTES % (AUTO) 19.5 % (20.0-44.0); MEAN CORPUSCULAR HGB CONC 33 g/dl (31.0-36.0); MEAN CORPUSCULAR VOLUME 95 fL (80-96); MONOCYTES # (AUTO) 0.2 /CMM (0.1-1.30); MONOCYTES % (AUTO) 6.2 % (2.0-12.0); NEUTROPHILS # (AUTO) 1.8 /CMM (1.8-8.9); NEUTROPHILS % (AUTO) 73.8 % (43.0-81.0); RED BLOOD CELL COUNT(AUTO) 3.09 MIL/uL (4.5-6.0); WHITE BLOOD COUNT (AUTO) 2.5 K/uL (4.3-11.0)
[2020-03-12 20:57] LABS: PLATELET COUNT (AUTO) 47 /CMM (150-450)
--- NOTE | 2020-03-12 21:10 | NUR ---
REPORTED TO DR ENRIQUE ABOUT THE PLATELET OF 47 WITH NO NEW ODER MADE
[2020-03-12 21:20] LABS: BAND % (MANUAL) 3 % (0.0-5.0); LYMPHOCYTES % (MANUAL) 16 % (16-48); MONOCYTES % (MANUAL) 13 % (0-11.0); MYELOCYTES % 1 % (0-0); NEUTROPHILS % (MANUAL) 67 (42-76)
[2020-03-13] VITALS (24 sets, daily range): BP systolic 101–136; BP diastolic 59–102
[2020-03-13] MEDS: PROPOFOL 10MG/ML 50ML 50 ML IV PRN ×3 (00:01→06:29)
[2020-03-13] MEDS: BLOOD SUGAR DIAGNOSTIC 1 EACH STRIP IN SCH ×5 (00:06→23:45)
[2020-03-13] MEDS: INSULIN REGULAR, HUMAN 100 UNIT/ML 3 ML VIAL SQ PRN ×3 (00:08→23:45)
[2020-03-13] MEDS: GUAIFENESIN 300 MG/15 ML UDC PO SCH ×6 (02:00→21:09)
[2020-03-13 04:29] LABS: BASOPHILS % (AUTO) 0.2 % (0.0-2.0); EOSINOPHILS % (AUTO) 0.3 % (0.0-6.0); HEMATOCRIT 26 % (39-51); HEMOGLOBIN 8.6 g/dL (13.5-17.5); LYMPHOCYTES # (AUTO) 0.3 /CMM (0.8-4.8); MEAN CORPUSCULAR HGB CONC 33 g/dl (31.0-36.0); MEAN CORPUSCULAR VOLUME 93 fL (80-96); MONOCYTES # (AUTO) 0.1 /CMM (0.1-1.30); MONOCYTES % (AUTO) 4.4 % (2.0-12.0); NEUTROPHILS # (AUTO) 1.1 /CMM (1.8-8.9); NEUTROPHILS % (AUTO) 77.1 % (43.0-81.0); RED BLOOD CELL COUNT(AUTO) 2.77 MIL/uL (4.5-6.0)
[2020-03-13 04:36] LABS: WHITE BLOOD COUNT (AUTO) 1.5 K/uL (4.3-11.0)
[2020-03-13 04:37] LABS: PLATELET COUNT (AUTO) 41 /CMM (150-450)
[2020-03-13 04:46] LABS: CALCIUM, SERUM 7.5 mg/dL (8.5-10.1); CREATININE 0.9 mg/dL (0.6-1.3)
[2020-03-13] MEDS: HYDROCORTISONE SOD SUCCINATE 100 MG/2 ML VIAL IV SCH ×3 (04:56→20:47)
[2020-03-13] MEDS: IV 1/2NS 1000 ML 1,000 ML IV PRN ×2 (04:56→14:58)
--- NOTE | 2020-03-13 07:38 | NUR ---
PT RECEIVED IN BED ON PRESCRIBED VENT SETTINGS , NOW SIMV AT 0715. PT SEDATED ON 35 MCG PROPOFOL. PT HAS ROBBIN MIDLINE INTACT RUNNING 1/2 NS AT 100 AND DIPROVAN AT 35. NO SIGNS OF INFECTION OR INFILTRATION. PT NGT RUNNING JEVITY AT 40 ML/HR. ALL SAFETY MEASURES IN PLACE. WILL CONTINUE TO MONITOR
[2020-03-13] MEDS: ACETYLCYSTEINE 10% SOLN 400 MG/4 ML VIAL NEB SCH ×3 (07:43→23:30)
[2020-03-13] MEDS ORDERED: DC PROPOFOL WHEN EXTUBATED XX PRN (08:00)
--- NOTE | 2020-03-13 08:18 | NUR ---
PT ON BED SEDATED WITH PROPOFOL @ 35 MCG/KG/MIN STILL ON ETT/VENT SETTING PER MD FIO2 40% SPO2 98% TELE MONITOR READS CONTROLLED AFIB 90'S NO SIGNIFICANT CHANGES ON CONDITION NOTED,WOUND TREATMENT DONE, ALL NEEDS ATTENDED BED ON LOWEST POSITION AND LOCKED SIDE RAILS UP X2 0 WILL ENDORSED TO AM SHIFT NURSE
[2020-03-13] MEDS: DILTIAZEM HCL CD 180 MG PO SCH (08:24)
[2020-03-13 08:42] LABS: ABG BASE EXCESS -1.7 mmol/L; ABG PCO2 36.4 mmHg (35.0-45.0); ABG PO2 95.9 mmHg (75.0-100.0); AaDO2 147.4 mmHg; COHb 0.3 % (0.5-1.5); MetHb 0.1 % (0.0-1.5); O2Hb 96.6 % (94.0-97.0); SITE, ABG Right Radial; VENT MODE, BG SIMV 4 450 + PS 15 40%
--- NOTE | 2020-03-13 08:53 | NUR ---
RT NOTE PT EXTUBATED @ 0850. PLACED PT ON 36% NASAL CANNULA. PT AWAKE/ALERT AND FOLLOWING COMMANDS. NO DISTRESS NOTED. ROBERT JOHNSON @ BEDSIDE. WILL MONITOR CLOSELY.
[2020-03-13] MEDS: PROSOURCE / PROSTAT (PYXIS) 30 ML UDC GT SCH ×2 (09:45→17:35)
--- NOTE | 2020-03-13 10:17 | NUR ---
PT EXTUBATED ON 2L O2, PT TRANSFERRED TO ROOM 110, REPORT AND ALL MEDS GIVEN TO ROBERT MONTAGUE
--- NOTE | 2020-03-13 10:20 | NUR ---
RN NOTES RECEIVED PT FROM ICU. REPORT GIVEN AT BEDSIDE BY JAIR JONES. PT NON VERBAL. ON 2L O2 VIA NC SATURATING @98%. NO SOB OR ANY RESPIRATORY DISTRESS NOTED. AFIB CONTROLLED ON TELE MONITOR. BUE AND BLE EDEMA NOTED. L NARES NGT CHECKED FOR POSITIVE PLACEMENT. NO RESIDUAL. JEVITY RUNNING @40MLS/HR. TOLERATING FEEDING WELL. ROBBIN PICC LINE INTACT AND PATENT. NS RUNNING @100ML/HR, INFUSING WELL. NO PAIN REPORTED AT THIS TIME. SAFETY MEASURES IN PLACE. CALL LIGHT WITHIN REACH. BED LOCKED AND IN LOWEST POSITION WITH SIDE RAILS UP X3. BED ALARM ON. WILL CONTINUE TO MONITOR
--- NOTE | 2020-03-13 18:45 | NUR ---
RN CLOSING NOTES PATIENT IS IN BED WITH HOB AT SEMI FOLWER'S POSITION. PATIENT IS CURRENTLY RECEIVING 6L VIA NC. PATIENT IS AOX2 AND LETHARGIC. PATIENT HAS PACEMAKER PLACED AT LEFT UPPER CHEST. NGTUBE IS IN PLACE AND FLUSHES WITH MINIMAL RESISTANCE. HOUSE CATHETER IS IN PLACE. SACRAL WOUND NOTED ON SACRAL AREA. EDEMA BILATERALLY ON ALL EXTREMITIES. ROBBIN PICC LINE IS INTACT WITH NO SIGNS OF INFILTRATION. BED IS LOCKED IN THE LOWEST POSITION, 3 GUARD RAILS RAISED, CALL CUETO WITHIN REACH, AND ALL HOSPITAL SAFETY PRECAUTIONS ARE BEING FOLLOWED. WILL ENDORSE TO BANQUET STEWARDESS RN.
--- NOTE | 2020-03-13 19:40 | NUR ---
RN OPENING NOTES, PATIENT IS IN BED WITH HOB ELEVATED, A/O X2, ON 5LPM VIA NC, WITH OPTIMAL O2 SAT LEVEL, NG-TUBE IS IN PLACE PATENT AND INTACT, HOUSE CATHETER IS IN PLACE, EDEMA NOTED IN AL 4 L EXTREMITIES, MORE ON BUE, ELEVATED ARMS ON PILLOW, ROBBIN PICC LINE PATENT AND INTACT, IIVF INFUSING ORDERED, AN PATIENT TOLERATED WELL, WITH NO S/S OF INFILTRATION, BED LOCKED IN THE LOWEST POSITION, S/R OF BED 2X RAISED, CALL CUETO WITHIN REACH, WILL CONTINUE TO MONITOR CLOSELY.
[2020-03-13] MEDS: MEROPENEM 500 MG in IV NS 0.9% 50 ML IV SCH (20:48)
[2020-03-13] MEDS: ALBUTEROL HALF STRENGTH 1.25 MG/3 ML VIAL.NEB NEB PRN (23:36)
[2020-03-13] MEDS: IPRATROPIUM NEB FS 0.5 MG/2.5 ML AMPUL.NEB NEB PRN (23:36)
[2020-03-14] VITALS (15 sets, daily range): BP systolic 87–117; BP diastolic 41–80
[2020-03-14] MEDS: IV 1/2NS 1000 ML 1,000 ML IV PRN ×2 (02:28→14:12)
[2020-03-14] MEDS: GUAIFENESIN 300 MG/15 ML UDC PO SCH ×6 (03:25→21:40)
[2020-03-14] MEDS: HYDROCORTISONE SOD SUCCINATE 100 MG/2 ML VIAL IV SCH ×3 (04:50→21:40)
[2020-03-14 06:29] LABS: BASOPHILS % (AUTO) 0.2 % (0.0-2.0); EOSINOPHILS % (AUTO) 0.1 % (0.0-6.0); HEMATOCRIT 27 % (39-51); HEMOGLOBIN 8.7 g/dL (13.5-17.5); LYMPHOCYTES # (AUTO) 0.4 /CMM (0.8-4.8); LYMPHOCYTES % (AUTO) 24.6 % (20.0-44.0); MEAN CORPUSCULAR HGB CONC 33 g/dl (31.0-36.0); MEAN CORPUSCULAR VOLUME 94 fL (80-96); MONOCYTES # (AUTO) 0.1 /CMM (0.1-1.30); MONOCYTES % (AUTO) 5.1 % (2.0-12.0); NEUTROPHILS # (AUTO) 1.1 /CMM (1.8-8.9); PLATELET COUNT (AUTO) 53 /CMM (150-450); RED BLOOD CELL COUNT(AUTO) 2.82 MIL/uL (4.5-6.0)
[2020-03-14] MEDS: BLOOD SUGAR DIAGNOSTIC 1 EACH STRIP IN SCH ×3 (06:42→17:44)
[2020-03-14] MEDS: INSULIN REGULAR, HUMAN 100 UNIT/ML 3 ML VIAL SQ PRN (06:43)
[2020-03-14 06:59] LABS: WHITE BLOOD COUNT (AUTO) 1.6 K/uL (4.3-11.0)
[2020-03-14 07:24] LABS: CALCIUM, SERUM 7.3 mg/dL (8.5-10.1); CREATININE 0.7 mg/dL (0.6-1.3); POTASSIUM 4.5 mmol/L (3.5-5.1)
[2020-03-14] MEDS: IPRATROPIUM NEB FS 0.5 MG/2.5 ML AMPUL.NEB NEB PRN ×2 (07:40→15:15)
[2020-03-14] MEDS: ACETYLCYSTEINE 10% SOLN 400 MG/4 ML VIAL NEB SCH ×2 (07:40→15:15)
[2020-03-14] MEDS: ALBUTEROL HALF STRENGTH 1.25 MG/3 ML VIAL.NEB NEB PRN ×2 (07:41→15:15)
--- NOTE | 2020-03-14 08:00 | NUR ---
CLINICAL EDUCATION COORDINATOR NOTE PT RECEIVED IN BED ON 6L NC SATURATION 99% AT THIS TIME ON BREATHING TX OEDERED SETTINGS , PT SEDATED ON 100 MCG PROPOFOL. PT HAS ROBBIN MIDLINE INTACT RUNNING 1/2 NS AT 100 ML PER HOUR. NO SIGNS OF INFECTION OR INFILTRATION. PT NGT RUNNING JEVITY AT 40 ML/HR. ALL SAFETY MEASURES IN PLACE. UNABLE TO VERIFY PLCEMENT CHEST X RAY ORDERED, WILL CONTINUE TO MONITOR Addendum: 03/14/20 at 0902 by KIRBY COLMENARES RN NO PROPOFOL RUNNING WRONG ENTRY
--- NOTE | 2020-03-14 08:08 | NUR ---
RN CLOSING NOTES, NO SIGNIFICANT CHANGE IN CONDITION DURING THE NIGHT, MAINTAINING OPTIMAL O2 SATURATION AT 5 LPM VIA NC, ENDORSED TO ROBERT ORR FOR CONTINUATION OF CARE.
[2020-03-14] MEDS: DILTIAZEM HCL CD 180 MG PO SCH (09:00)
[2020-03-14] MEDS: PROSOURCE / PROSTAT (PYXIS) 30 ML UDC GT SCH ×2 (09:00→16:40)
--- NOTE | 2020-03-14 09:43 | NUR ---
design engineer agricultural equipment note noted vomiting dark brown color hold feeding and medication will call to
--- NOTE | 2020-03-14 10:05 | NUR ---
viticulture teacher note dr guerin notified that patient is vomiting Zofran given no new order given hold Meds and g tube feeding
--- NOTE | 2020-03-14 10:58 | NUR ---
agriculture research director note st at bedside unable to st eval to do saturation 88% will try latter on
--- NOTE | 2020-03-14 12:00 | NUR ---
television engineer note spoke with radiology about n g tube placement stated need to advance a little more , checked placement by auscultation by air
--- NOTE | 2020-03-14 13:00 | NUR ---
telephone interviewer note very chest congested spoke with dr veronica circle cutting saw operator aware chest x ray result ordered, us guided us rt side spoke with family , consent obtained
[2020-03-14 13:08] LABS: BAND % (MANUAL) 12 % (0.0-5.0); EOSINOPHILS % (MANUAL) 1 % (0-4); LYMPHOCYTES % (MANUAL) 14 % (16-48); MONOCYTES % (MANUAL) 5 % (0-11.0); MYELOCYTES % 1 % (0-0); NEUTROPHILS % (MANUAL) 67 (42-76)
[2020-03-14] MEDS: ACETAMINOPHEN 325 MG TABLET PO PRN (13:51)
--- NOTE | 2020-03-14 15:00 | NUR ---
I BRILLIANDEER LOOPER OTE NOTED BLOODY STOOL CALLED TO DR JOSUE WITH ORDER GI CONSULT , OK TO CONT NG TUBE FEEDING , NO VOMITING NOTED AT THIS TIME
--- NOTE | 2020-03-14 15:34 | NUR ---
cookie pulido note very congested saturation 885 plAced on nonrebreather Shaan sullivan rt at bedside Addendum: 03/14/20 at 1548 by KIRBY COLMENARES RN CORRECTION SATURATION 88%,ON NONREABRETHER MASK
--- NOTE | 2020-03-14 15:48 | NUR ---
UNDERCOAT SPRAYER NOTE E SPUTUM CX COLLECTED ORDERED
[2020-03-14] MEDS ORDERED: PANTOPRAZOLE 40 MG VIAL IV SCH (17:00)
--- NOTE | 2020-03-14 17:00 | NUR ---
CAUL PULLER NOTE PER DR JOSELO HOOVER TO HAVE GI CONSULT ,AWARE THAT PATIENT HAS BLOODY STOOL , Addendum: 03/14/20 at 1748 by KIRBY COLMENARES RN PER DR KALA HOOVER TO HAVE PROTONIX AND NPO AFTER MIDNIGHT WITH POSSIBLE EGD
--- NOTE | 2020-03-14 17:30 | NUR ---
GEOMETRICIAN NOTE PER RT PLACED ON 5L NC SATURATION 92%
--- NOTE | 2020-03-14 17:49 | NUR ---
IMMIGRATION GUARD NOTE SPOKE WITH FAMILY DANILO TELEPHONE CONSENT OBTAINED AND VERIFIED CODE STATUS PATIENT IS DNR
--- NOTE | 2020-03-14 18:34 | NUR ---
telemarketing representative note on 5l via nc with slight sob noted , on tele monitor [id number] , dnr status , still is congested, oral suction done, on ivf as ordered , with Rutledge cath to gravity with nathaly color , on ng tube feeding as ordered ,keep hob elevated, no residual, noted placement of ng tube checked by air auscultation, will monitor for hg , bed in lowest and locked position , will cont to monitor ,
--- NOTE | 2020-03-14 19:00 | NUR ---
Received patient ,awake,alert,tries to talk,mumbles some words but seems to understand ,follows simple command. Not in any acute distress but with periods of slight SOB , but patient denies having difficulty breathing ,with O2 via NC @ 5 L/min. . + generalized edema. Tube feeding via NGT, Aspiration precaution observed. For possible THoracentesis in AM and possibly EGD. NPO post midnight tonight.
[2020-03-14 19:17] LABS: HEMATOCRIT 26 % (39-51); HEMOGLOBIN 8.5 g/dL (13.5-17.5); LYMPHOCYTES # (AUTO) 0.3 /CMM (0.8-4.8); MEAN CORPUSCULAR HGB CONC 33 g/dl (31.0-36.0); MEAN CORPUSCULAR VOLUME 95 fL (80-96); MONOCYTES # (AUTO) 0.1 /CMM (0.1-1.30); MONOCYTES % (AUTO) 6.6 % (2.0-12.0); NEUTROPHILS # (AUTO) 1.2 /CMM (1.8-8.9); NEUTROPHILS % (AUTO) 76.4 % (43.0-81.0); PLATELET COUNT (AUTO) 51 /CMM (150-450); RED BLOOD CELL COUNT(AUTO) 2.76 MIL/uL (4.5-6.0)
[2020-03-14 19:23] LABS: WHITE BLOOD COUNT (AUTO) 1.6 K/uL (4.3-11.0)
[2020-03-14 19:50] LABS: NEUTROPHILS % (MANUAL) 67 (42-76)
[2020-03-14 19:51] LABS: BAND % (MANUAL) 2 % (0.0-5.0); LYMPHOCYTES % (MANUAL) 24 % (16-48); MONOCYTES % (MANUAL) 7 % (0-11.0)
[2020-03-14] MEDS: MEROPENEM 500 MG in IV NS 0.9% 50 ML IV SCH (21:38)
[2020-03-14] MEDS: PANTOPRAZOLE 40 MG VIAL IV SCH (21:39)
--- NOTE | 2020-03-14 22:00 | NUR ---
Patient very awake and alert and reji coherent,states"just let me go ". Psychological support rendered .
[2020-03-15] VITALS (19 sets, daily range): BP systolic 90–123; BP diastolic 50–80
--- NOTE | 2020-03-15 | NUR ---
Remains very awake and alert ,coherent ,not in any distress, sleeps on and off.
[2020-03-15] MEDS: ACETYLCYSTEINE 10% SOLN 400 MG/4 ML VIAL NEB SCH ×4 (00:07→23:59)
[2020-03-15] MEDS: ALBUTEROL HALF STRENGTH 1.25 MG/3 ML VIAL.NEB NEB PRN ×2 (00:07→23:59)
[2020-03-15] MEDS: BLOOD SUGAR DIAGNOSTIC 1 EACH STRIP IN SCH ×3 (00:35→12:51)
[2020-03-15] MEDS: GUAIFENESIN 300 MG/15 ML UDC PO SCH ×6 (02:00→22:06)
--- NOTE | 2020-03-15 04:00 | NUR ---
Noted HR more frequently increasing in the 130's-140's , but not sustaining then back in the 110's.
--- NOTE | 2020-03-15 05:30 | NUR ---
Got short of breath after AM bath ,after turning and putting him flat position. and HR went up into the 150's .Comfort cvare done, aggressive pulmonary toileting done.Have a lot of thick secretions .Saturation maintaining in the 90's.
[2020-03-15] MEDS ORDERED: HYDROCORTISONE SOD SUCCINATE 100 MG/2 ML VIAL ONE (05:55)
[2020-03-15] MEDS: HYDROCORTISONE SOD SUCCINATE 100 MG/2 ML VIAL IV SCH ×3 (05:59→21:47)
--- NOTE | 2020-03-15 06:00 | NUR ---
Maintained NPO post midnight,HR still fluctuating in the 110's-140's but not sustaining.Saturating well, not in any acute respiratory distress.For Thoracentesis this AM and possible EGD.
[2020-03-15 06:13] LABS: BASOPHILS % (AUTO) 0.2 % (0.0-2.0); EOSINOPHILS % (AUTO) 0.2 % (0.0-6.0); HEMATOCRIT 28 % (39-51); HEMOGLOBIN 8.9 g/dL (13.5-17.5); LYMPHOCYTES # (AUTO) 0.4 /CMM (0.8-4.8); LYMPHOCYTES % (AUTO) 20.8 % (20.0-44.0); MEAN CORPUSCULAR HGB CONC 32 g/dl (31.0-36.0); MEAN CORPUSCULAR VOLUME 95 fL (80-96); MONOCYTES # (AUTO) 0.1 /CMM (0.1-1.30); MONOCYTES % (AUTO) 4.9 % (2.0-12.0); NEUTROPHILS # (AUTO) 1.5 /CMM (1.8-8.9); NEUTROPHILS % (AUTO) 73.9 % (43.0-81.0); PLATELET COUNT (AUTO) 75 /CMM (150-450); RED BLOOD CELL COUNT(AUTO) 2.89 MIL/uL (4.5-6.0)
--- NOTE | 2020-03-15 07:16 | NUR ---
RN NOTE RECEIVED PT IN BED, PT IS A/A/O X3, PT IS ON 6 L VIA NC SATING 100%, PT HAS UNLABORED BREATHING.
[2020-03-15 07:24] LABS: CALCIUM, SERUM 7.5 mg/dL (8.5-10.1); CREATININE 0.7 mg/dL (0.6-1.3); POTASSIUM 5.4 mmol/L (3.5-5.1)
--- NOTE | 2020-03-15 07:59 | NUR ---
RN OPENING NOTE PATIENT IS AOX4 IN BED WITH HOB AT SEMI FOWLERS POSITION. PATIENT IS CURRENTLY ON 6 LITERS NASAL CANULA. HOUSE CATHETER IS IN PLACE. SACRAL STAGE 2 NOTED. ROBBIN PICC IS IN PLACE, PATENT, AND HAS NO SIGNS OF INFILTRATION. BED IS LOCKED IN THE LOWEST POSITION, 3 SIDE RAILS RAISED, CALL CUETO WITHIN REACH, AND ALL HOSPITAL SAFETY PRECAUTIONS ARE BEING FOLLOWED. WILL CONTINUE TO MONITOR THROUGHOUT SHIFT.
--- NOTE | 2020-03-15 08:04 | NUR ---
EXECUTIVE VICE PRESIDENT BUSINESS DEVELOPMENT OVERFLOW NOTE, INFORMED DR ARNOLD THAT PATIENT IS AFIB UNCONTROLLLED WITH HR 120-140S AND HE REPLIED THAT WHITE OUT OF RIGHT LUNG RAPID RATE DUE TO HIS WORK OF BREATHING, AND FOLLOW UP TIME RECORDER RECOMMENDATION.
--- NOTE | 2020-03-15 08:10 | NUR ---
FARMWORKER CHICKEN FARM OVERFLOW NOTE, INFORMED DR ARNOLD THAT PATIENT IS NPO FOR POSSIBLE EGD TODAY, AND IF POSSIBLE TO SWITCH CARDIZEM PO TO IV, HE REPLIED TO LET SEE DR YUSUF PATIENT FIRST.
[2020-03-15] MEDS ORDERED: SODIUM POLYSTYRENE SULFONATE 15 G/60 ML BOTTLE PO ONE ×2 (08:30→11:00)
[2020-03-15] MEDS: PANTOPRAZOLE 40 MG VIAL IV SCH ×2 (08:41→17:23)
[2020-03-15] MEDS: PROSOURCE / PROSTAT (PYXIS) 30 ML UDC GT SCH ×2 (08:56→17:23)
[2020-03-15] MEDS: DILTIAZEM HCL CD 180 MG PO SCH ×2 (08:56→10:48)
--- NOTE | 2020-03-15 09:25 | NUR ---
US GUIDED THORACENTESIS STARTED AT THIS TIME, PATIENT WITH STABLE VS, BUT CONTINUE WITH AFIB UNCONTROLLED.
--- NOTE | 2020-03-15 10:03 | NUR ---
THORACENTESIS DONE AT THIS TIME WITH 1100ML OUTPUT, PATIENT TOLERATED PROCEDURE WELL, CXR STAT ORDERED AT THIS TIME.
--- NOTE | 2020-03-15 10:18 | NUR ---
INFORM DR JOSUE ABOUT POTASSIUM THIS MORNING 5.4 AND REPLIED WITH ORDER FOR KAYEXALATE 30G X1, NOTED AND CARRIED OUT.
[2020-03-15 10:33] LABS: BAND % (MANUAL) 7 % (0.0-5.0); LYMPHOCYTES % (MANUAL) 18 % (16-48); MONOCYTES % (MANUAL) 9 % (0-11.0); NEUTROPHILS % (MANUAL) 66 (42-76)
[2020-03-15] MEDS: INSULIN REGULAR, HUMAN 100 UNIT/ML 3 ML VIAL SQ PRN (12:51)
--- NOTE | 2020-03-15 17:04 | NUR ---
RN NOTES, ENDORSED PATIENT TO WILLIAN MCKINNEY AND JOANN JONES FOR CONTINUATION OF CARE.
--- NOTE | 2020-03-15 18:03 | NUR ---
PATIENT PULLED MD JERMAINE MADE AWARE,WILL INITIATE SOFT WRIST RESTRAINT FOR NOW,WILL REINSERT NG TOLERATED.
--- NOTE | 2020-03-15 19:21 | NUR ---
RN CLOSING NOTE PATIENT IS AWAKE IN BED WITH HOB AT SEMI FOWLERS POSITION. PATIENT IS AOX4. 6L NC APPLIED. ROBBIN PICC IS PATENT, INTACT, AND HAS NO SIGNS OF INFILTRATION. SOFT RESTRAINTS ARE APPLIED. HOUSE CATHETER IS IN PLACE. SACRAL WOUND IS NOTED WITH MEPILEX APPLIED. BED IS LOCKED IN THE LOWEST POSITION, 3 GUARD RAILS RAISED, CALL CUETO WITHIN REACH, AND ALL HOSPITAL SAFETY PRECAUTIONS ARE IN PLACE. WILL ENDORSE TO LODGING FACILITIES MANAGER NURSE.
[2020-03-15] MEDS: MEROPENEM 500 MG in IV NS 0.9% 50 ML IV SCH (21:47)
[2020-03-15] MEDS: IV 1/2NS 1000 ML 1,000 ML IV PRN (22:26)
[2020-03-16] VITALS (50 sets, daily range): BP systolic 71–126; BP diastolic 43–94
[2020-03-16] MEDS: BLOOD SUGAR DIAGNOSTIC 1 EACH STRIP IN SCH ×4 (00:56→17:15)
[2020-03-16] MEDS: GUAIFENESIN 300 MG/15 ML UDC PO SCH ×6 (02:28→22:00)
[2020-03-16] MEDS: HYDROCORTISONE SOD SUCCINATE 100 MG/2 ML VIAL IV SCH ×2 (05:56→21:18)
[2020-03-16] MEDS: INSULIN REGULAR, HUMAN 100 UNIT/ML 3 ML VIAL SQ PRN (06:33)
[2020-03-16 07:05] LABS: CALCIUM, SERUM 7.3 mg/dL (8.5-10.1); CREATININE 0.7 mg/dL (0.6-1.3); MAGNESIUM 2.2 mg/dL (1.8-2.4); POTASSIUM 4.4 mmol/L (3.5-5.1)
--- NOTE | 2020-03-16 07:25 | NUR ---
RN NOTE NO ACUTE CHANGES DURING MY SHIFT, PT REMAINED STABLE REPORT GIVEN TO INCOMING SHIFT FOR JEANNA.
--- NOTE | 2020-03-16 07:30 | NUR ---
RN OPENING NOTE PATIENT IN BED, SLEEPINGWITH HOB AT SEMI FOWLERS POSITION. PATIENT IS CURRENTLY ON 6 LITERS NASAL CANULA. HOUSE CATHETER IS IN PLACE. SACRAL STAGE 2 NOTED. ROBBIN PICC IS IN PLACE, PATENT, AND HAS NO SIGNS OF INFILTRATION. CURRENTLY HAS 1/2NS RUNNING @ 30ML/HR. NG TUBE FEEDING JEVITY 1.2 RUNNING @ 40ML/HR. BED IS LOCKED IN THE LOWEST POSITION, 3 SIDE RAILS RAISED, CALL CUETO WITHIN REACH, AND ALL HOSPITAL SAFETY PRECAUTIONS ARE BEING FOLLOWED. WILL CONTINUE TO MONITOR THROUGHOUT SHIFT.
[2020-03-16 07:53] LABS: BASOPHILS % (AUTO) 0.2 % (0.0-2.0); EOSINOPHILS % (AUTO) 0.1 % (0.0-6.0); HEMATOCRIT 24 % (39-51); HEMOGLOBIN 7.8 g/dL (13.5-17.5); LYMPHOCYTES # (AUTO) 0.3 /CMM (0.8-4.8); LYMPHOCYTES % (AUTO) 16.4 % (20.0-44.0); MEAN CORPUSCULAR HGB CONC 32 g/dl (31.0-36.0); MEAN CORPUSCULAR VOLUME 96 fL (80-96); MONOCYTES # (AUTO) 0.1 /CMM (0.1-1.30); MONOCYTES % (AUTO) 4.7 % (2.0-12.0); NEUTROPHILS # (AUTO) 1.6 /CMM (1.8-8.9); NEUTROPHILS % (AUTO) 78.6 % (43.0-81.0); PLATELET COUNT (AUTO) 78 /CMM (150-450); RED BLOOD CELL COUNT(AUTO) 2.53 MIL/uL (4.5-6.0)
[2020-03-16] MEDS: ACETYLCYSTEINE 10% SOLN 400 MG/4 ML VIAL NEB SCH ×3 (07:56→23:44)
[2020-03-16] MEDS: PANTOPRAZOLE 40 MG VIAL IV SCH ×2 (09:26→17:15)
[2020-03-16] MEDS: PROSOURCE / PROSTAT (PYXIS) 30 ML UDC GT SCH ×2 (09:26→17:15)
--- NOTE | 2020-03-16 11:45 | NUR ---
PATIENT BLOOD PRESSURE DECREASED TO 71/42. NEOSYNEPHRINE STARTED AT 0.5MCG. WILL CONT TO MONITOR
[2020-03-16] MEDS: PHENYLEPHRINE 50 MG in IV NS 0.9% 245 ML IV PRN (11:49)
[2020-03-16 12:37] LABS: BAND % (MANUAL) 7 % (0.0-5.0); LYMPHOCYTES % (MANUAL) 17 % (16-48); MONOCYTES % (MANUAL) 4 % (0-11.0); NEUTROPHILS % (MANUAL) 72 (42-76)
--- NOTE | 2020-03-16 18:00 | NUR ---
SPOKE WITH PATIENT'S FAMILY REGARDING PATIENT'S DECLINING CONDITION. STATED THAT HE DOES WANT PATIENT TO BE INTUBATED IF THAT WILL HELP THE PATIENT HEAL AND COME HOME, HOWEVER IF THE PATIENT IS IN THE CONDITION WHERE THE INTUBATION WOULD ONLY BE PROLONGING HIS SUFFERING AND HE CURRENTLY WOULD NOT BE ABLE TO RECOVER, HE DOES NOT WANT INTUBATION. MD AND SCROLL SAW OPERATOR NOTIFIED.
[2020-03-16 18:02] LABS: ABG OXYGEN SATURATION 89.3 % (92.0-98.5); ABG PCO2 128.6 mmHg (35.0-45.0); ABG PH 6.999 (7.350-7.450); ABG PO2 71.5 mmHg (75.0-100.0); AaDO2 214.8 mmHg; COHb 0.1 % (0.5-1.5); MetHb 0.2 % (0.0-1.5); SITE, ABG Right Radial; VENT MODE, BG simple mask 10 lpm 60%
--- NOTE | 2020-03-16 18:43 | NUR ---
RN CLOSING NOTE PATIENT IN BED, LETHARGIC RESPONSIVE TO LIGHT PAIN,WITH HOB AT SEMI FOWLERS POSITION. PATIENT IS CURRENTLY ON 8 LITERS O2 THERAPY VIA MASK. PATIENT HAS LABORED BREATHING. HOUSE CATHETER IS IN PLACE, HOWEVER PATIENT HAS HAD DECREASED OUTPUT THROUGHOUT SHIFT. SACRAL STAGE 2 NOTED. ROBBIN PICC IS IN PLACE, PATENT, AND HAS NO SIGNS OF INFILTRATION. CURRENTLY HAS 1/2NS RUNNING @ 30ML/HR. NG TUBE FEEDING JEVITY 1.2 RUNNING @ 40ML/HR. BED IS LOCKED IN THE LOWEST POSITION, 3 SIDE RAILS RAISED, CALL [facility] WITHIN REACH, AND ALL HOSPITAL SAFETY PRECAUTIONS ARE BEING FOLLOWED. WILL ENDORSE TO PIG LEAD MELTER HELPER FOR JEANNA.
--- NOTE | 2020-03-16 18:58 | NUR ---
SPOKE WITH PATIENT'S REGARDING PATIENT'S CONDITION. INFORMED THAT PATIENT WILL BE STARTED ON BIPAP MACHINE WITH A REPEAT LABS DONE IN TWO HOURS TO SEE IF PATIENT IS TOLERATING, ORDERED BY DR. YUSUF. PATIENT REQUESTED TO BE CALLED BACK AFTER THE TWO HOURS WITH THE REPEAT LABS AND HE WILL DECIDE ON WHETHER OR NOT TO INTUBATE HIS AT THAT TIME.
--- NOTE | 2020-03-16 19:00 | NUR ---
GUTTER HANGER NOTE RECEIVED PTS IN BED LETHARGIC UNABLE TO RESPONSE MD MADE AWARE DR STYLES WITH ORDER TO DO ABG , RESULT RELAYED TO MD DR YUSUF TO PLACE PTS 0N RESCUE BIPPAP AND ABG AGAIN POST 2 HRS ROBBIN PICC IS PATENT, INTACT, AND HAS NO SIGNS OF INFILTRATION. SOFT RESTRAINTS ARE APPLIED. HOUSE CATHETER IS IN PLACE. SACRAL WOUND IS NOTED WITH MEPILEX APPLIED. BED IS LOCKED IN THE LOWEST POSITION, !/2 BILATERAL SIDE RAILS RAISED, CALL CU[facility]O WITHIN REACH, AND ALL HOSPITAL SAFETY PRECAUTIONS ARE IN PLACE. WILL CONTINUE TO MONITOR PTS
--- NOTE | 2020-03-16 19:45 | NUR ---
RT placed on bipap per md order. settings: 20/5 R 20 fio2 70%. pt tolerating well at this time. unable to obtain spo2. notified lela carballo rn. rosendoipapiper plugged in to red outlet. ambu bag at [facility] abg to follow. will continue to monitor pt
[2020-03-16 21:12] LABS: ABG BASE EXCESS -1.4 mmol/L; ABG OXYGEN SATURATION 98.7 % (92.0-98.5); ABG PCO2 66.4 mmHg (35.0-45.0); ABG PH 7.223 (7.350-7.450); ABG PO2 146.7 mmHg (75.0-100.0); COHb 0.3 % (0.5-1.5); MetHb 0.3 % (0.0-1.5); O2Hb 98.1 % (94.0-97.0); SITE, ABG Right Radial; VENT MODE, BG ST 20/5 R14 70%
[2020-03-16] MEDS: MEROPENEM 500 MG in IV NS 0.9% 50 ML IV SCH (21:12)
--- NOTE | 2020-03-16 21:45 | NUR ---
agricultural adviser notes spoke to paper conservator software support analyst relayed abg result ,inform him pts on rescue bipap on 50% fi02 at this time and that pts more awake at this time ,with nno just to continue on rescue bipap.will continue to monitor pts. Addendum: 03/17/20 at 2012 by UHANG TRIPLETT RN software support analyst paper conservator dr Caraballo
--- NOTE | 2020-03-16 22:00 | NUR ---
SPOKE TO DANILO , UPDATED WITH PTS CURRENT CODITION ,PTS CURRENTLY ON RESCUE BIPAP WITH TOLERATED SETTING PTS MORE ALERT AND AWAKE VERBALIZING CODE STATUS DNR DNI WHICH IS CONFIRM WITH MR DANILO WITNESS BY CHARGE NURSE NIRAJ . MD DR LOPEZ MADE AWARE OF DNR DNI HE SAID OK TO ORDER WII ENDORSE TO JULIO RIVERA DOCTOR SING THE CONSENT.
--- NOTE | 2020-03-16 22:25 | NUR ---
2225 CODE STATUS CLARIFIED WITH PATIENT'S DANILO, HE WISHED FOR PATIENT TO BE DNR/DNI. CODE STATUS WITNESSED BY ROBERT TRIPLETT.
[2020-03-17] VITALS (10 sets, daily range): BP systolic 0–129; BP diastolic 0–85
--- NOTE | 2020-03-17 | NUR ---
Blood sugar for 12mn is 143 no coverage given d/t pts is npo status .AND PTS ON RESCUE BIPAP.
[2020-03-17] MEDS: BLOOD SUGAR DIAGNOSTIC 1 EACH STRIP IN SCH ×2 (00:24→06:00)
[2020-03-17] MEDS: INSULIN REGULAR, HUMAN 100 UNIT/ML 3 ML VIAL SQ PRN (00:27)
[2020-03-17] MEDS: PHENYLEPHRINE 50 MG in IV NS 0.9% 245 ML IV PRN (01:34)
[2020-03-17] MEDS: GUAIFENESIN 300 MG/15 ML UDC PO SCH ×2 (02:00→06:00)
[2020-03-17 05:40] LABS: ABG BASE EXCESS 0.4 mmol/L; ABG OXYGEN SATURATION 93.1 % (92.0-98.5); ABG PCO2 56.5 mmHg (35.0-45.0); ABG PH 7.301 (7.350-7.450); ABG PO2 69.3 mmHg (75.0-100.0); AaDO2 223.6 mmHg; COHb 0.3 % (0.5-1.5); MetHb 0.1 % (0.0-1.5); O2Hb 92.7 % (94.0-97.0); SITE, ABG Right Radial
--- NOTE | 2020-03-17 06:00 | NUR ---
arboriculture teacher notes blood sugar at 6am is 83 -no coverage given
--- NOTE | 2020-03-17 07:00 | NUR ---
agricultural engineering technician notes Pts remains on bipap as ordered , endorse to fela Rn day shift for continue of care.
--- NOTE | 2020-03-17 07:22 | NUR ---
RN CLOSING NOTE RECEIVED PATIENT IN BED WITH HOB AT SEMI EDWARDS'S POSITION. PATIENT IS CURRENTLY ON BIPAP WITH FIO2 AT 50%. PATIENT IS AOX4. PATIENT HAS SACRAL STAGE 2. SOFT RESTRAINTS APPLIED. NGT IS APPLIED. HOUSE CATHETER IS APPLIED. ROBBIN PICC IS IN PLACE, PATENT, AND INTACT. BED IS LOCKED IN THE LOWEST POSITION, 3 GUARD RAILS RAISED, AND ALL HOSPITAL SAFETY PRECAUTIONS ARE BEING FOLLOWED. WILL CONTINUE TO MONITOR THROUGHOUT SHIFT.
[2020-03-17 07:26] LABS: BASOPHILS % (AUTO) 0.1 % (0.0-2.0); HEMATOCRIT 24 % (39-51); HEMOGLOBIN 7.8 g/dL (13.5-17.5); LYMPHOCYTES # (AUTO) 0.3 /CMM (0.8-4.8); LYMPHOCYTES % (AUTO) 12.2 % (20.0-44.0); MEAN CORPUSCULAR HGB CONC 33 g/dl (31.0-36.0); MEAN CORPUSCULAR VOLUME 96 fL (80-96); MONOCYTES # (AUTO) 0.2 /CMM (0.1-1.30); MONOCYTES % (AUTO) 6.3 % (2.0-12.0); NEUTROPHILS % (AUTO) 81.4 % (43.0-81.0); PLATELET COUNT (AUTO) 83 /CMM (150-450); RED BLOOD CELL COUNT(AUTO) 2.52 MIL/uL (4.5-6.0); WHITE BLOOD COUNT (AUTO) 2.5 K/uL (4.3-11.0)
[2020-03-17 07:34] LABS: CALCIUM, SERUM 7.7 mg/dL (8.5-10.1); CREATININE 0.8 mg/dL (0.6-1.3); PHOSPHORUS 2.4 mg/dL (2.5-4.9); POTASSIUM 5.1 mmol/L (3.5-5.1)
[2020-03-17] MEDS: IV 1/2NS 1000 ML 1,000 ML IV PRN (07:48)
[2020-03-17] MEDS: ACETYLCYSTEINE 10% SOLN 400 MG/4 ML VIAL NEB SCH (08:07)
[2020-03-17] MEDS: DILTIAZEM HCL CD 180 MG PO SCH (08:08)
[2020-03-17] MEDS: PANTOPRAZOLE 40 MG VIAL IV SCH (08:08)
[2020-03-17] MEDS: HYDROCORTISONE SOD SUCCINATE 100 MG/2 ML VIAL IV SCH (08:08)
[2020-03-17] MEDS: PROSOURCE / PROSTAT (PYXIS) 30 ML UDC GT SCH (08:09)
--- NOTE | 2020-03-17 09:00 | NUR ---
Non verbal and Nonrespons with out any pulses, residential monitor showed pulseless electrical activity Pnounced at 0900 nursing relay shop supervisor and admitting notifid as well Onlegacy notified .Case # [id number] family was notified
--- NOTE | 2020-03-17 09:55 | NUR ---
RN NOTES NOTED ASYSTOLE ON MONITOR. NO PALPABLE PULSE. NOT BREATHING. BP UNAPPRECIATED. INFORMED DR. JOSUE. RELATIVE AWARE. PT DNR/DNI STATUS. PRONOUNCED BY 2 RNs. PROTOCOL FOLLOWED. POST MORTEM CARE DONE. BODY SENT TO [facility] [place].
[2020-03-17 11:06] LABS: BAND % (MANUAL) 5 % (0.0-5.0); LYMPHOCYTES % (MANUAL) 18 % (16-48); MONOCYTES % (MANUAL) 10 % (0-11.0); NEUTROPHILS % (MANUAL) 67 (42-76)
--- NOTE | 2020-03-20 10:53 | NUR ---
HOMAR received call from [facility] worker, Mitra Wan [phone]. Mitra requested information about pt.'s discharge. HOMAR informed Mitra that the pt. 03/17/2020. Mitra expressed understanding.
== END 2020-03-17 10:37 | disposition expired | DRG 207 ==
LOC: ER 13:16 → OBSER 21:00 → INTOOBSV 21:00 → TELE 21:00 → UNDOADMOB 21:00 → OBSVTOIN 21:00 → OBSER 21:01 → TRANSITION 21:01 → TELE2 03-06 12:29 → ICUOV 03-08 20:39 → ICU 03-09 17:53 → TELE-TD 03-13 10:10 → ICU 03-13 10:10 → TELE-TD 03-13 10:47 → ICUOV 03-13 10:47 → TELE1 03-14 11:22 → ICUOV 03-14 12:37 → TELE1 03-14 12:37 → UNDODISIN 03-17 10:37
PROVIDERS: ADMIT Nurse Practitioner Acute Care; ATTEND Internal Medicine
PROC: 5A1955Z Respiratory Ventilation, Greater than 96 Consecutive Hours (ICD-10-PCS; principal; 2020-03-08)
PROC: 0BH18EZ Insertion of Endotracheal Airway into Trachea, Via Natural or Artificial Opening Endoscopic (ICD-10-PCS; 2020-03-08)
PROC: 02HV33Z Insertion of Infusion Device into Superior Vena Cava, Percutaneous Approach (ICD-10-PCS; 2020-03-08)
PROC: B548ZZA Ultrasonography of Superior Vena Cava, Guidance (ICD-10-PCS; 2020-03-08)
PROC: 30233N1 Transfusion of Nonautologous Red Blood Cells into Peripheral Vein, Percutaneous Approach (ICD-10-PCS; 2020-03-09)
PROC: 0W993ZZ Drainage of Right Pleural Cavity, Percutaneous Approach (ICD-10-PCS; 2020-03-15)
DX: J15.9 Unspecified bacterial pneumonia (principal); I21.4 Non-ST elevation (NSTEMI) myocardial infarction; N17.0 Acute kidney failure with tubular necrosis; G93.41 Metabolic encephalopathy; J96.01 Acute respiratory failure with hypoxia; J96.02 Acute respiratory failure with hypercapnia; C34.31 Malignant neoplasm of lower lobe, right bronchus or lung; E44.1 Mild protein-calorie malnutrition; D61.818 Other pancytopenia; D68.59 Other primary thrombophilia; J98.11 Atelectasis; Z66 Do not resuscitate; I49.5 Sick sinus syndrome; I48.91 Unspecified atrial fibrillation; I50.9 Heart failure, unspecified; E11.9 Type 2 diabetes mellitus without complications; Z79.01 Long term (current) use of anticoagulants; Z79.84 Long term (current) use of oral hypoglycemic drugs; Z79.51 Long term (current) use of inhaled steroids; Z79.899 Other long term (current) drug therapy; N40.1 Benign prostatic hyperplasia with lower urinary tract symptoms; R33.8 Other retention of urine; Y95 Nosocomial condition; Z20.822 Contact with and (suspected) exposure to COVID-19; I27.20 Pulmonary hypertension, unspecified; R59.0 Localized enlarged lymph nodes; D69.6 Thrombocytopenia, unspecified; K76.89 Other specified diseases of liver; E83.52 Hypercalcemia; E87.6 Hypokalemia; I72.3 Aneurysm of iliac artery; D64.9 Anemia, unspecified; I11.0 Hypertensive heart disease with heart failure; F17.200 Nicotine dependence, unspecified, uncomplicated; Z95.0 Presence of cardiac pacemaker; I25.2 Old myocardial infarction; E87.5 Hyperkalemia
CPT/HCPCS: 31720; 36415; 36569; 36600; 71045-TC; 80048-TC; 80061-TC; 80076-TC; 80162-TC; 82040-TC; 82378; 82533; 82728-TC; 82803-TC; 82962-TC; 83540-TC; 83605-TC; 83735-TC; 84100-TC; 84484-TC; 85025-TC; 85610-TC; 85730-TC; 86850-TC; 87040-TC; 87070-TC; 87081-TC; 88108-TC; 88305-TC; 88312-TC; 94002-TC; 94003-TC; 94660; 94760-TC; 94762-TC; 94799-TC; 97116-TC; 97530-TC; 99082-TC; A4216; A4349; A6403; C1751; C9113; C9803; G0378; J0282; J0692; J0696; J1720; J1815; J1956; J2060; J2185; J2370; J2405; J2543; J3480; J3490; J7030; J7042; J7050; J7060; P9016-BL; U0003